=== PATIENT | female | born 1995 | race Caucasian/White ===

== ENCOUNTER 2024-11-02 21:17 | Inpatient (IN) | payer MEDICAID, OTHER ==
[~2024-11-02] VITALS: Ht 154.9 cm; Wt 60.6 kg
--- NOTE | 2024-11-02 22:05 | ED.PDOC ---
History of Present Illness HPI Comments 29 year old female came to ER due to breast pain. Patient states she has been having left breast pain for the past 3 days. Few hours ago, noted rash appearing beside her left nipple. No fever noted. Patient had history of nipple piercing but she stopped doing it months ago Chief Complaint: Breast pain Time Seen by MD: 22:04 Reviewed Notes: Nurses Notes Allergies: Coded Allergies: NO KNOWN ALLERGIES (Unverified , 11/03/24) Information Source: Patient Mode of Arrival: Ambulatory Review of Systems REVIEW OF SYSTEMS: No fever, no chills, or fatigue HEENT: No sore throat, no earache, no congestion, no neck pain. Cardiac: No chest pain. No palpitations. (+) left breast pain Lungs: No shortness of breath, no cough. GI: No nausea, no vomiting, no diarrhea, no constipation, no abdominal pain : No dysuria, frequency, or urgency. No hematuria. Musculoskeletal: No joint pain , no joint swelling, no extremity edema. Skin: No rash, no itching. Neuro: No headache, no dizziness, no weakness Vital Signs Vital Signs Date Time Temp Pulse Resp B/P (MAP) Pulse Ox O2 Delivery O2 Flow Rate FiO2 11/03/24 02:00 98.0 73 17 114/71 (85) 97 98.0 11/03/24 02:00 Room Air* 0 21 Physical Exam General: Awake, alert and oriented. No acute distress. Skin: Skin in warm, dry and intact without rashes or lesions. HEENT: The head is normocephalic and atraumatic. Conjunctivae are clear without exudates or hemorrhage. Sclera is non-icteric. Neck: Normal range of motion. No JVD. Cardiac: Regular rate Respiratory: No signs of respiratory distress. No Stridor. Chest: Extractor Filler present-left breast is swollen, tender, mildly erythematous, warm. No draining lesion. Extremities: Upper and lower extremities are atraumatic in appearance without tenderness or deformity. Neurological: The patient is awake, alert and oriented to person, place, and time with normal speech. Speech is clear. There is no facial asymmetry. Psychiatric: Appropriate mood and affect. Good judgement and insight. No visual or auditory hallucinations. No suicidal or homicidal ideation. 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 Was a procedure done?: No Differential Dx Considerations may include: Cellulitis, abscess, mastitis X-Ray, Labs, Meds, VS Vital Signs Date Time Temp Pulse Resp B/P (MAP) Pulse Ox O2 Delivery O2 Flow Rate FiO2 11/03/24 02:00 98.0 73 17 114/71 (85) 97 98.0 11/03/24 02:00 73 14 96 Room Air* 0 21 11/03/24 01:02 98.0 89 17 118/76 (90) 95 98.0 11/02/24 21:38 99.6 99 18 151/94 (113) 95 Lab Test 11/02/24 22:03 11/02/24 22:02 Range/Units Sodium Level 137 136-145 mmol/L Potassium Level 3.9 3.5-5.1 mmol/L Chloride Level 104 98-107 mmol/L Carbon Dioxide Level 26 20-31 mmol/L Anion Gap 7 5-15 Blood Urea Nitrogen 9 9-23 mg/dL Creatinine 0.78 0.550-1.02 mg/dL Glomerular Filtration Rate Calc 105 >90 mL/min BUN/Creatinine Ratio 11.5 10.0-20.0 Serum Glucose 99 74-106 mg/dL Calcium Level 10.1 8.7-10.4 mg/dL Total Bilirubin 0.4 0.2-1.0 mg/dL Aspartate Amino Transferase (AST) 17 13-40 U/L Alanine Aminotransferase (ALT) < 9 7-40 U/L Alkaline Phosphatase 92 46-116 U/L Total Protein 8.1 5.7-8.2 g/dL Albumin 5.1 H 3.2-4.8 g/dL White Blood Count 20.4 H 4.4-10.8 10^3/uL Red Blood Count 4.44 4.0-5.20 10^6/uL Hemoglobin 13.7 12.2-16.2 g/dL Hematocrit 40.5 36.0-46.0 % Mean Corpuscular Volume 91.4 80.0-100.0 fL Mean Corpuscular Hemoglobin 30.8 28.0-32.0 pg Mean Corpuscular Hemoglobin Concent 33.7 32.0-36.0 g/dL Red Cell Distribution Width 12.6 11.8-14.3 % Platelet Count 298 140-450 10^3/uL Mean Platelet Volume 8.5 6.9-10.8 fL Neutrophils (%) (Auto) 76.6 37.0-80.0 % Lymphocytes (%) (Auto) 16.2 10.0-50.0 % Monocytes (%) (Auto) 6.3 0.0-12.0 % Eosinophils (%) (Auto) 0.4 0.0-7.0 % Basophils (%) (Auto) 0.5 0.0-2.0 % Neutrophils # (Auto) 15.7 H 1.6-8.6 10 ^3/uL Lymphocytes # (Auto) 3.3 0.4-5.4 10 ^3/uL Monocytes # (Auto) 1.3 0-1.3 10 ^3/uL Eosinophils # (Auto) 0.1 0-0.8 10 ^3/uL Basophils # (Auto) 0.1 0-0.2 10 ^3/uL Nucleated Red Blood Cells 0.0 % Current Medications Medications (Trade) Dose Ordered Sig/Uma Route Start Time Stop Time Status Last Admin Ketorolac Tromethamine (Toradol Injection) 30 mg ONCE ONCE IM 11/02/24 22:00 11/02/24 22:01 DC 11/03/24 00:08 Tramadol HCl (Ultram) 50 mg ONCE ONCE PO 11/02/24 22:00 11/02/24 22:01 DC 11/03/24 00:08 Cefazolin Sodium/ Dextrose 50 ml @ 50 mls/hr ONCE ONCE IV 11/03/24 01:00 11/03/24 01:59 DC 11/03/24 03:10 Sodium Chloride 1,000 ml @ 60 mls/hr [id number] IV 11/03/24 02:15 11/03/24 03:21 Ondansetron HCl (Zofran) 4 mg Q4HP PRN IV 11/03/24 02:15 11/03/24 04:21 US OF THE RIGHT BREAST INDICATION: Swelling, pain , tenderness TECHNIQUE: All 4 quadrants, subareolar region and axillary region of the LEFT breast were evaluated with ultrasound FINDINGS: 2 cm abscess measured adjacent to the nipple. Enlarged lymph nodes are seen measuring up to 1 cm. IMPRESSION: 2 cm abscess measured adjacent to the nipple. Enlarged lymph nodes are seen measuring up to 1 cm. Time of 1ST Reevaluation: 22:01 Reevaluation 1ST: Unchanged Patient Education/Counseling: Diagnosis, Treatment Family Education/Counseling: No Family Present Departure 1 Departure Time of Disposition: 01:22 Impression: Primary Impression: Left breast abscess Disposition: ADMITTED INPATIENT Condition: Stable Comments Benign year old female with 2 cm left breast abscess. Admit for surgical consult. Antibiotics initiated in the emergency department. --- Critical Care Note Critical Care Time?: No Stability Stability form required: No Heart Score Heart Score: Heart Score Response (Comments) Value History N/A 0 EKG N/A 0 Age N/A 0 Risk Factors N/A 0 Troponin N/A 0 Total 0 I personally scribed for ANDREA STEPHEN MD ([email or web address]) on 11/02/24 at 22:05. Electronically submitted by Tono Boucher ([email or web address]). I personally scribed for ANDREA STEPHEN MD ([email or web address]) on 11/03/24 at 00:48. Electronically submitted by Tono Boucher ([email or web address]). ANDREA STEPHEN MD Nov 02, 2024 22:05
[2024-11-02 22:16] LABS: Basophils # (auto) 0.1 10 ^3/uL (0-0.2); Basophils % (auto) 0.5 % (0.0-2.0); Eosinophils # (auto) 0.1 10 ^3/uL (0-0.8); Eosinophils % (auto) 0.4 % (0.0-7.0); Hematocrit 40.5 % (36.0-46.0); Hemoglobin 13.7 g/dL (12.2-16.2); Lymphocytes # (auto) 3.3 10 ^3/uL (0.4-5.4); Lymphocytes % (auto) 16.2 % (10.0-50.0); Mean Corpuscular Hemoglobin 30.8 pg (28.0-32.0); Mean Corpuscular Hgb Conc. 33.7 g/dL (32.0-36.0); Mean Corpuscular Volume 91.4 fL (80.0-100.0); Monocytes # (auto) 1.3 10 ^3/uL (0-1.3); Monocytes % (auto) 6.3 % (0.0-12.0); Neutrophils # (auto) 15.7 10 ^3/uL (1.6-8.6); Neutrophils % (auto) 76.6 % (37.0-80.0); Platelet Count (auto) 298 10^3/uL (140-450); Red Blood Cells 4.44 10^6/uL (4.0-5.20); Red Cell Distribution Width 12.6 % (11.8-14.3); White Blood Cell 20.4 10^3/uL (4.4-10.8)
[2024-11-02 22:43] LABS: Alkaline Phosphatase 92 U/L (46-116); Anion Gap 7 (5-15); Aspartate Aminotransferase 17 U/L (13-40); BUN/Creatinine Ratio 11.5 (10.0-20.0); Blood Urea Nitrogen 9 mg/dL (9-23); Calcium 10.1 mg/dL (8.7-10.4); Carbon Dioxide 26 mmol/L (20-31); Chloride 104 mmol/L (98-107); Glucose 99 mg/dL (74-106); Potassium 3.9 mmol/L (3.5-5.1); Sodium 137 mmol/L (136-145); Total Protein 8.1 g/dL (5.7-8.2)
[2024-11-02 22:44] LABS: Alanine Aminotransferase < 9 U/L (7-40); Albumin 5.1 g/dL (3.2-4.8); Bilirubin, Total 0.4 mg/dL (0.2-1.0)
[2024-11-03] VITALS (7 sets, daily range): BP systolic 102–126; BP diastolic 65–76; PULSE 66–90; RESP 14–20; TEMP 97.5–98.2; O2SAT 96–100
[2024-11-03] MEDS: traMADol HCL 50 MG TAB PO ONE (00:08)
[2024-11-03] MEDS: KETOROLAC TROMETH 30 MG/ML 1ML VIAL IM ONE (00:08)
--- NOTE | 2024-11-03 00:16 | DVH ---
US OF THE RIGHT BREAST INDICATION: Swelling, pain , tenderness TECHNIQUE: All 4 quadrants, subareolar region and axillary region of the LEFT breast were evaluated with ultrasound FINDINGS: 2 cm abscess measured adjacent to the nipple. Enlarged lymph nodes are seen measuring up to 1 cm. IMPRESSION: 2 cm abscess measured adjacent to the nipple. Enlarged lymph nodes are seen measuring up to 1 cm.
[2024-11-03] MEDS ORDERED: traMADol HCL 50 MG TAB PO PRN (02:15)
[2024-11-03] MEDS ORDERED: DOCUSATE SOD 100 MG CAP PO PRN (02:15)
[2024-11-03] MEDS ORDERED: ACETAMINOPHEN 325 MG TAB PO PRN (02:15)
--- NOTE | 2024-11-03 02:24 | DVHHP2 ---
History of Present Illness Reason for Visit: Left breast abscess History of Present Illness Patient is a 29-year-old female who denies past medical history presented to [facility] ED with complaint of left breast pain. Patient reports she has been having left breast pain for the past 3 days, started with rash appearing beside her left nipples, swelling, redness, getting worse today that prompted this visit. Patient was seen and evaluated in the ED, laboratory data shows WBC 20.4, platelets 298, sodium 137, potassium 3.9, BUN nine, creatinine 0.78, GFR 105, glucose 99, albumin 5.1. Left breast ultrasound revealing 2 cm abscess measures adjacent to the nipples, enlarged lymph node seen measuring up to 1 cm. Patient was started on IV antibiotic regimen Zosyn, please see medication orders section in the computer. On my assessment, patient denied chest pain, no headache, no dizziness, no shortness of breaths, no nausea, no vomiting, no fever, no chills. Patient was admitted for further evaluation and medical management. Past Medical History Denies past medical history Past Surgical History Denies all surgeries Family History Reviewed, noncontributory to the management of this case. Past Social History The patient lives at home, denies smoking, alcohol or illicit drugs abuse. Review of Systems Constitutional: Yes: Other (Left breast pain); No: Fever, Chills, Sweats, Weakness, Malaise Eyes: No: Pain, Vision change, Conjunctivae inflammation, Eyelid inflammation, Other, Redness ENT: No: Ear pain, Ear discharge, Nose pain, Nose discharge, Nose congestion, Mouth pain, Mouth swelling, Throat pain, Throat swelling, Other Respiratory: No: Cough, Dry, Shortness of breath, SOB with excertion, Wheezing, Hemoptysis, Pleuritic Pain, Sputum, Wheezing, Other Cardiovascular: No: Chest Pain, Palpitations, Orthopnea, Paroxysmal Noc. Dyspnea, Edema, Lt Headedness, Other Gastrointestinal: No: Nausea, Vomiting, Abdominal Pain, Diarrhea, Constipation, Melena, Hematochezia, Other Genitourinary: No Dysuria, No Frequency, No Incontinence, No Hematuria, No Retention, No Other Musculoskeletal: No: other, neck pain, shoulder pain, arm pain, back pain, hand pain, leg pain, foot pain Skin: Other (Left breast redness); No: Rash, Lesions, Jaundice, Bruising Neurological: No: Weakness, Numbness, Incoordination, Change in speech, Confusion, Seizures, Other Allergies: Coded Allergies: NO KNOWN ALLERGIES (Unverified , 11/03/24) Exam Vital Signs Vital Signs Date Time Temp Pulse Resp B/P (MAP) Pulse Ox O2 Delivery O2 Flow Rate FiO2 11/03/24 01:02 98.0 89 17 118/76 (90) 95 98.0 General Appearance: Alert, Oriented X3, Cooperative, No acute distress HEENT: Atraumatic, PERRLA, EOMI, Mucous membr. moist/pink Respiratory: Clear to auscultation, Normal air movement Cardiovascular: Regular rate, Normal S1, Normal S2, No murmurs Abdominal: Normal bowel sounds, Soft, No tenderness, No hepatospenomegaly, No masses Extremities: No clubbing, No cyanosis, No edema, Normal pulses, No tenderness/swelling Skin: No rashes, No breakdown, No significant lesion Neuro: Normal gait, Normal speech, Strength at 5/5 X4 ext, Normal tone, Sensati on intact, Cranial nerves 3-12 NL, Reflexes 2+ Psych/Mental Status: Mental status NL, Mood NL Labs/Xrays Labs Test 11/02/24 22:03 11/02/24 22:02 Range/Units Sodium Level 137 136-145 mmol/L Potassium Level 3.9 3.5-5.1 mmol/L Chloride Level 104 98-107 mmol/L Carbon Dioxide Level 26 20-31 mmol/L Anion Gap 7 5-15 Blood Urea Nitrogen 9 9-23 mg/dL Creatinine 0.78 0.550-1.02 mg/dL Glomerular Filtration Rate Calc 105 >90 mL/min BUN/Creatinine Ratio 11.5 10.0-20.0 Serum Glucose 99 74-106 mg/dL Calcium Level 10.1 8.7-10.4 mg/dL Total Bilirubin 0.4 0.2-1.0 mg/dL Aspartate Amino Transferase (AST) 17 13-40 U/L Alanine Aminotransferase (ALT) < 9 7-40 U/L Alkaline Phosphatase 92 46-116 U/L Total Protein 8.1 5.7-8.2 g/dL Albumin 5.1 H 3.2-4.8 g/dL White Blood Count 20.4 H 4.4-10.8 10^3/uL Red Blood Count 4.44 4.0-5.20 10^6/uL Hemoglobin 13.7 12.2-16.2 g/dL Hematocrit 40.5 36.0-46.0 % Mean Corpuscular Volume 91.4 80.0-100.0 fL Mean Corpuscular Hemoglobin 30.8 28.0-32.0 pg Mean Corpuscular Hemoglobin Concent 33.7 32.0-36.0 g/dL Red Cell Distribution Width 12.6 11.8-14.3 % Platelet Count 298 140-450 10^3/uL Mean Platelet Volume 8.5 6.9-10.8 fL Neutrophils (%) (Auto) 76.6 37.0-80.0 % Lymphocytes (%) (Auto) 16.2 10.0-50.0 % Monocytes (%) (Auto) 6.3 0.0-12.0 % Eosinophils (%) (Auto) 0.4 0.0-7.0 % Basophils (%) (Auto) 0.5 0.0-2.0 % Neutrophils # (Auto) 15.7 H 1.6-8.6 10 ^3/uL Lymphocytes # (Auto) 3.3 0.4-5.4 10 ^3/uL Monocytes # (Auto) 1.3 0-1.3 10 ^3/uL Eosinophils # (Auto) 0.1 0-0.8 10 ^3/uL Basophils # (Auto) 0.1 0-0.2 10 ^3/uL Nucleated Red Blood Cells 0.0 % PATIENT: ALEX CARMONA ACCT: [id number] UNIT: [id number] : 1995 LOC: ER ROOM / BED: / AGE / SEX: 29 / F ADM STATUS: REG ER SERVICE ORDERING PHYSICIAN: ANRDEA STEPHEN MD PROCEDURE(s): LBRST - L BREAST ULTRASOUND REASON: Swelling, pain , tenderness ORDER NUMBER(s): [id number], ACCESSION NUMBER(s): [id number] US OF THE RIGHT BREAST INDICATION: Swelling, pain, tenderness TECHNIQUE: All 4 quadrants, subareolar region and axillary region of the LEFT breast were evaluated with ultrasound FINDINGS: 2 cm abscess measured adjacent to the nipple. Enlarged lymph nodes are seen measuring up to 1 cm. IMPRESSION: 2 cm abscess measured adjacent to the nipple. Enlarged lymph nodes are seen measuring up to 1 cm. Assessment/Plan Assessment/Plan Left breast abscess Left breast pain Leukocytosis, unspecified Plan 1. Admit to med surge unit 2. Breathing treatment 3. Pain control management 4. IV antibiotic management 5. Management of fluids and electrolytes 6. Consultation for surgery/hospitalist 7. Diagnostic test left breast ultrasound 8. DVT prophylaxis on SCDs 9. Repeat labs CBC, CMP in a.m. 10. Continue with current medical management 11. Treatment plan discussed with patient and RN. Patient verbalized understanding. Plan discussed with: Patient, Other (RN) My Orders Orders - WILLIS ADEN DNP Procedure Category Date Status Time Complete Blood Count LAB 11/03/24 Verified 04:00 Comprehensive LAB 11/03/24 Verified Metabolic Panel 04:00 Zosyn Extended PHA 11/03/24 Verified Infusion 06:00 Tramadol Hcl (Ultram) PHA 11/03/24 Verified 02:15 Allergies [id number] 11/03/24 Verified 02:07 Code Status CODE 11/03/24 Verified 02:07 0.9% Ns 1000 Ml PHA 11/03/24 Verified 02:15 Problem List: (1) Left breast abscess (2) Breast pain, left (3) Leukocytosis, unspecified Date of Service: Nov 03, 2024 Billing Provider: WILLIS ADEN DNP Common Visit Codes: [id number] INP/OBS CARE (HIGH) WILLIS ADEN DNP Nov 03, 2024 02:24
[2024-11-03] MEDS ORDERED: NITROGLYCERIN 0.4 MG SL TAB SL PRN (02:30)
[2024-11-03] MEDS ORDERED: MORPHINE SULFATE INJ 2 MG/ml SYRG IV PRN (02:30)
[2024-11-03] MEDS: ceFAZolin 2 GM/D5W50ml 50 ML IV ONE (03:10)
[2024-11-03] MEDS: SODIUM CHLORIDE 0.9% 1,000 ML IV SCH (03:21)
[2024-11-03] MEDS: ONDANSETRON HCL 4 MG/2 ML VIAL IV PRN (04:21)
[2024-11-03 05:01] LABS: Basophils # (auto) 0.1 10 ^3/uL (0-0.2); Basophils % (auto) 0.4 % (0.0-2.0); Eosinophils # (auto) 0.1 10 ^3/uL (0-0.8); Eosinophils % (auto) 0.4 % (0.0-7.0); Hematocrit 36.7 % (36.0-46.0); Hemoglobin 12.6 g/dL (12.2-16.2); Lymphocytes # (auto) 3.4 10 ^3/uL (0.4-5.4); Lymphocytes % (auto) 19.7 % (10.0-50.0); Mean Corpuscular Hemoglobin 31.2 pg (28.0-32.0); Mean Corpuscular Hgb Conc. 34.2 g/dL (32.0-36.0); Mean Corpuscular Volume 91.3 fL (80.0-100.0); Monocytes # (auto) 1.3 10 ^3/uL (0-1.3); Monocytes % (auto) 7.3 % (0.0-12.0); Neutrophils # (auto) 12.5 10 ^3/uL (1.6-8.6); Neutrophils % (auto) 72.2 % (37.0-80.0); Platelet Count (auto) 271 10^3/uL (140-450); Red Blood Cells 4.02 10^6/uL (4.0-5.20); Red Cell Distribution Width 12.8 % (11.8-14.3); White Blood Cell 17.3 10^3/uL (4.4-10.8)
[2024-11-03] MEDS: PIPERACILLIN-TAZOB 3.375GM 100 ML IV SCH (05:18)
[2024-11-03 05:19] LABS: Alanine Aminotransferase 11 U/L (7-40); Albumin 4.7 g/dL (3.2-4.8); Alkaline Phosphatase 78 U/L (46-116); Anion Gap 6 (5-15); Aspartate Aminotransferase 18 U/L (13-40); BUN/Creatinine Ratio 10.8 (10.0-20.0); Bilirubin, Total 0.4 mg/dL (0.2-1.0); Calcium 9.6 mg/dL (8.7-10.4); Carbon Dioxide 26 mmol/L (20-31); Chloride 106 mmol/L (98-107); Glucose 97 mg/dL (74-106); Potassium 3.5 mmol/L (3.5-5.1); Sodium 138 mmol/L (136-145); Total Protein 7.5 g/dL (5.7-8.2)
[2024-11-03 05:20] LABS: Blood Urea Nitrogen 8 mg/dL (9-23)
[2024-11-03] MEDS ORDERED: ESCI10TA PO (05:30)
[2024-11-03] MEDS ORDERED: MELA3TAB27 PO (05:43)
[2024-11-03] MEDS ORDERED: MAGN400T40 PO (05:43)
[2024-11-03] MEDS: HYDROcodone-ACET 5/325MG TAB PO PRN (21:13)
[2024-11-04] VITALS (7 sets, daily range): BP systolic 101–127; BP diastolic 53–82; PULSE 53–142; RESP 15–20; TEMP 97.4–98.2; O2SAT 94–100
[2024-11-04 06:43] LABS: Basophils # (auto) 0 10 ^3/uL (0-0.2); Basophils % (auto) 0.4 % (0.0-2.0); Eosinophils # (auto) 0.1 10 ^3/uL (0-0.8); Eosinophils % (auto) 0.9 % (0.0-7.0); Hematocrit 36.3 % (36.0-46.0); Hemoglobin 12.4 g/dL (12.2-16.2); Lymphocytes # (auto) 2.4 10 ^3/uL (0.4-5.4); Lymphocytes % (auto) 23.1 % (10.0-50.0); Mean Corpuscular Hemoglobin 31.3 pg (28.0-32.0); Mean Corpuscular Hgb Conc. 34.2 g/dL (32.0-36.0); Mean Corpuscular Volume 91.4 fL (80.0-100.0); Monocytes # (auto) 0.7 10 ^3/uL (0-1.3); Monocytes % (auto) 6.9 % (0.0-12.0); Neutrophils % (auto) 68.7 % (37.0-80.0); Nucleated Red Blood Cells % 0.1 %; Platelet Count (auto) 264 10^3/uL (140-450); Red Blood Cells 3.98 10^6/uL (4.0-5.20); Red Cell Distribution Width 12.6 % (11.8-14.3); White Blood Cell 10.2 10^3/uL (4.4-10.8)
[2024-11-04 07:08] LABS: Alanine Aminotransferase 14 U/L (7-40); Alkaline Phosphatase 77 U/L (46-116); Anion Gap 10 (5-15); Calcium 9.4 mg/dL (8.7-10.4); Carbon Dioxide 24 mmol/L (20-31); Chloride 103 mmol/L (98-107); Potassium 3.5 mmol/L (3.5-5.1); Sodium 137 mmol/L (136-145)
[2024-11-04 07:10] LABS: BUN/Creatinine Ratio 8.7 (10.0-20.0); Total Protein 6.8 g/dL (5.7-8.2)
[2024-11-04 07:11] LABS: Albumin 4.2 g/dL (3.2-4.8); Aspartate Aminotransferase 36 U/L (13-40)
[2024-11-04 07:12] LABS: Bilirubin, Total 0.7 mg/dL (0.2-1.0)
[2024-11-04 07:18] LABS: Glucose 106 mg/dL (74-106)
[2024-11-04 07:19] LABS: Blood Urea Nitrogen 6 mg/dL (9-23)
--- NOTE | 2024-11-04 11:51 | DVHINCON2 ---
Date of service: Nov 04, 2024 Family History: Alzheimer's disease FH: breast cancer Grandmother FH: dementia Grandmother FH: lupus G8 MOTHER Allergies: Coded Allergies: NO KNOWN ALLERGIES (Unverified , 11/03/24) Home Meds Reported Medications Magnesium Oxide (MAGNESIUM OXIDE) 400 Mg Tab, 1 TAB PO, #30 TAB 5 Refills 11/03/24 Melatonin (KP MELATONIN) 3 Mg Tab, 5 MG PO, TAB 11/03/24 Escitalopram Oxalate (Lexapro) 10 Mg Tab, 1 TAB PO DAILY, #90 TAB 3 Refills 11/03/24 Vital Signs Vital Signs Date Time Temp Pulse Resp B/P (MAP) Pulse Ox O2 Delivery O2 Flow Rate FiO2 11/04/24 08:54 98.1 56 15 101/53 (69) 98 98.1 11/04/24 08:00 Room Air* 0 21 Labs/Diagnostic Data Labs Test 11/04/24 06:05 11/03/24 15:51 Range/Units White Blood Count 10.2 # 4.4-10.8 10^3/uL Red Blood Count 3.98 L 4.0-5.20 10^6/uL Hemoglobin 12.4 12.2-16.2 g/dL Hematocrit 36.3 36.0-46.0 % Mean Corpuscular Volume 91.4 80.0-100.0 fL Mean Corpuscular Hemoglobin 31.3 28.0-32.0 pg Mean Corpuscular Hemoglobin Concent 34.2 32.0-36.0 g/dL Red Cell Distribution Width 12.6 11.8-14.3 % Platelet Count 264 140-450 10^3/uL Mean Platelet Volume 8.4 6.9-10.8 fL Neutrophils (%) (Auto) 68.7 37.0-80.0 % Lymphocytes (%) (Auto) 23.1 10.0-50.0 % Monocytes (%) (Auto) 6.9 0.0-12.0 % Eosinophils (%) (Auto) 0.9 0.0-7.0 % Basophils (%) (Auto) 0.4 0.0-2.0 % Neutrophils # (Auto) 7.0 1.6-8.6 10 ^3/uL Lymphocytes # (Auto) 2.4 0.4-5.4 10 ^3/uL Monocytes # (Auto) 0.7 0-1.3 10 ^3/uL Eosinophils # (Auto) 0.1 0-0.8 10 ^3/uL Basophils # (Auto) 0 0-0.2 10 ^3/uL Nucleated Red Blood Cells 0.1 % Sodium Level 137 136-145 mmol/L Potassium Level 3.5 3.5-5.1 mmol/L Chloride Level 103 98-107 mmol/L Carbon Dioxide Level 24 20-31 mmol/L Anion Gap 10 5-15 Blood Urea Nitrogen 6 L 9-23 mg/dL Creatinine 0.69 0.550-1.02 mg/dL Glomerular Filtration Rate Calc 120 >90 mL/min BUN/Creatinine Ratio 8.7 L 10.0-20.0 Serum Glucose 106 74-106 mg/dL Calcium Level 9.4 8.7-10.4 mg/dL Total Bilirubin 0.7 0.2-1.0 mg/dL Aspartate Amino Transferase (AST) 36 13-40 U/L Alanine Aminotransferase (ALT) 14 7-40 U/L Alkaline Phosphatase 77 46-116 U/L Total Protein 6.8 5.7-8.2 g/dL Albumin 4.2 3.2-4.8 g/dL Urine Test Negative Negative Assessment [id number] R/O LEFT RETROAREOLAR MASTITIS/ABSCESS US 2 CM ABSCESS CONTINUE IV ABX CLOSE OBSERVATION CONSIDER EMERGENT SURGERY BASED ON ONGOING EVAL Plan discussed with: Patient EMA LEWIS MD Nov 04, 2024 11:51
--- NOTE | 2024-11-04 12:31 | DVHINCON2 ---
DATE OF CONSULTATION: 11/04/2024 HISTORY OF PRESENT ILLNESS: A 29 years old, coming in with left leg swelling, redness, feeling better. No fever or chills. No nausea, vomiting. No constipation, diarrhea. No hematemesis, melena. No bleeding per rectum. PAST MEDICAL HISTORY: No diabetes, hypertension. PAST SURGICAL HISTORY: No significant surgical history. PHYSICAL EXAMINATION: VITAL SIGNS: Afebrile, stable signs. HEENT: No evidence of pallor, cyanosis or jaundice. NECK: Supple, nontender with no thyromegaly, lymphadenopathy. CHEST AND LUNGS: Clear. HEART: Within normal limits. ABDOMEN: Soft. NEUROLOGIC: Not assessed. CLINICAL IMPRESSION: Left breast examination reveals mild erythema on the circumareolar margin and there is some induration, retroareolar location and the ultrasound is indicating a small collection/abscess. PLAN: Will be to continue close observation, give her intravenous antibiotics and evaluate for possible surgery. MD REANNA Carson/FELIPE TID: [id number] RECEIPT: [id number] cc: Aspen Aquino
--- NOTE | 2024-11-04 20:33 | DVHPN2 ---
Subjective in bed resting Changes from previous H/P or p: No Changes Eyes: No Pain, No Vision change, No Conjunctivae inflammation, No Eyelid inflammation, No Other, No Redness ENT: No Ear pain, No Ear discharge, No Nose pain, No Nose discharge, No Nose congestion, No Mouth pain, No Mouth swelling, No Throat pain, No Throat swelling, No Other Cardiovascular: No Chest Pain, No Palpitations, No Orthopnea, No Paroxysmal Noc. Dyspnea, No Edema, No Lt Headedness, No Other Respiratory: No Cough, No Dry, No Shortness of breath, No SOB with excertion, No Wheezing, No Hemoptysis, No Pleuritic Pain, No Sputum, No Other Gastrointestinal: No Nausea, No Vomiting, No Abdominal Pain, No Diarrhea, No Constipation, No Melena, No Hematochezia, No Other Genitourinary: No Dysuria, No Frequency, No Incontinence, No Hematuria, No Retention, No Other Musculoskeletal: No other, No neck pain, No shoulder pain, No arm pain, No back pain, No hand pain, No leg pain, No foot pain Skin: No Rash, No Lesions, No Jaundice, No Bruising; Other (Left breast redness) Objective Vitals Vital Signs Date Time Temp Pulse Resp B/P (MAP) Pulse Ox O2 Delivery O2 Flow Rate FiO2 11/04/24 17:00 98.1 91 15 118/79 (92) 98 98.1 11/04/24 08:00 Room Air* 0 21 Intake/Output Intake and Output 11/04/24 07:00 Intake Total 2207.78 ml Balance 2207.78 ml Intake Oral 1625 ml IV Total 582.78 ml # Voids 4 General Appearance: Alert, Oriented X3 Lungs: Clear to auscultation Cardiovascular: Regular rate, Normal S1, Normal S2 Medications Current Medications Medications Dose Ordered Sig/Uma Route Start Time Stop Time Status Last Admin Dose Admin Piperacillin Sod/ Tazobactam Sod 100 ml @ 25 mls/hr Q8HR IV 11/03/24 06:00 11/04/24 12:27 25 MLS/HR Sodium Chloride 1,000 ml @ 60 mls/hr [id number] IV 11/03/24 02:15 11/04/24 11:35 60 MLS/HR Acetaminophen/ Hydrocodone Bitart 1 tab Q4HP PRN PO 11/03/24 02:15 3/9/25 17:47 1 TAB Ondansetron HCl 4 mg Q4HP PRN IV 11/03/24 02:15 11/03/24 04:21 4 MG Docusate Sodium 100 mg BIDPRN PRN PO 11/03/24 02:15 Acetaminophen 650 mg Q6HP PRN PO 11/03/24 02:15 Morphine Sulfate 2 mg Q4HPRN PRN IV 11/03/24 02:15 Nitroglycerin 0.4 mg Q5MINP PRN SL 11/03/24 02:30 Morphine Sulfate 2 mg Q30M PRN IV 11/03/24 02:30 Laboratory Results Laboratory Tests 11/04/24 06:05 Chemistry Test 11/04/24 06:05 Albumin 4.2 g/dL (3.2-4.8) Calcium Level 9.4 mg/dL (8.7-10.4) Total Protein 6.8 g/dL (5.7-8.2) LFT Test 11/04/24 06:05 Alanine Aminotransferase (ALT) 14 U/L (7-40) Alkaline Phosphatase 77 U/L (46-116) Aspartate Amino Transferase (AST) 36 U/L (13-40) Total Bilirubin 0.7 mg/dL (0.2-1.0) Urinalysis Test 11/03/24 15:51 Urine Test Negative (Negative) Assessment/Plan Assessment/Plan Left breast abscess Left breast pain sepsis due to left breast abscess WBC downtrending to normal Surgery eval and planning on I an D Continue IV abx Plan discussed with: Patient My Orders Orders - KATIE RIVAS MD Procedure Category Date Status Time * Surgical Consult CONS 11/04/24 Transmitted Date of Service: Nov 04, 2024 Billing Provider: KATIE RIVAS MD Common Visit Codes: [id number] INP/OBS CARE(HIGH) KATIE RIVAS MD Nov 04, 2024 20:33
[2024-11-04] MEDS: MORPHINE SULFATE INJ 2 MG/ml SYRG IV PRN (22:18)
[2024-11-05] VITALS (7 sets, daily range): BP systolic 97–144; BP diastolic 36–82; PULSE 58–87; RESP 16–20; TEMP 97.1–98.2; O2SAT 97–100
--- NOTE | 2024-11-05 14:33 | DVHPN2 ---
Subjective improving Changes from previous H/P or p: No Changes Eyes: No Pain, No Vision change, No Conjunctivae inflammation, No Eyelid inflammation, No Other, No Redness ENT: No Ear pain, No Ear discharge, No Nose pain, No Nose discharge, No Nose congestion, No Mouth pain, No Mouth swelling, No Throat pain, No Throat swelling, No Other Cardiovascular: No Chest Pain, No Palpitations, No Orthopnea, No Paroxysmal Noc. Dyspnea, No Edema, No Lt Headedness, No Other Respiratory: No Cough, No Dry, No Shortness of breath, No SOB with excertion, No Wheezing, No Hemoptysis, No Pleuritic Pain, No Sputum, No Other Gastrointestinal: No Nausea, No Vomiting, No Abdominal Pain, No Diarrhea, No Constipation, No Melena, No Hematochezia, No Other Genitourinary: No Dysuria, No Frequency, No Incontinence, No Hematuria, No Retention, No Other Musculoskeletal: No other, No neck pain, No shoulder pain, No arm pain, No back pain, No hand pain, No leg pain, No foot pain Skin: No Rash, No Lesions, No Jaundice, No Bruising; Other (Left breast redness) Objective Vitals Vital Signs Date Time Temp Pulse Resp B/P (MAP) Pulse Ox O2 Delivery O2 Flow Rate FiO2 11/05/24 13:28 97.9 63 16 97/36 (56) 98 97.9 11/05/24 08:00 Room Air* 0 21 Intake/Output Intake and Output 11/05/24 07:00 Intake Total 2940 ml Balance 2940 ml Intake Oral 1600 ml IV Total 1340 ml # Voids 7 # Bowel Movements 1 General Appearance: Alert, Oriented X3 Lungs: Clear to auscultation Cardiovascular: Regular rate, Normal S1, Normal S2 Medications Current Medications Medications Dose Ordered Sig/Uma Route Start Time Stop Time Status Last Admin Dose Admin Piperacillin Sod/ Tazobactam Sod 100 ml @ 25 mls/hr Q8HR IV 11/03/24 06:00 11/05/24 05:03 25 MLS/HR Sodium Chloride 1,000 ml @ 60 mls/hr [id number] IV 11/03/24 02:15 11/05/24 04:20 60 MLS/HR Acetaminophen/ Hydrocodone Bitart 1 tab Q4HP PRN PO 11/03/24 02:15 11/04/24 17:47 1 TAB Ondansetron HCl 4 mg Q4HP PRN IV 11/03/24 02:15 11/03/24 04:21 4 MG Docusate Sodium 100 mg BIDPRN PRN PO 11/03/24 02:15 Acetaminophen 650 mg Q6HP PRN PO 11/03/24 02:15 Morphine Sulfate 2 mg Q4HPRN PRN IV 11/03/24 02:15 11/04/24 22:18 2 MG Nitroglycerin 0.4 mg Q5MINP PRN SL 11/03/24 02:30 Morphine Sulfate 2 mg Q30M PRN IV 11/03/24 02:30 Laboratory Results Laboratory Tests 11/04/24 06:05 Urinalysis Test 11/03/24 15:51 Urine Test Negative (Negative) Assessment/Plan Assessment/Plan Left breast abscess Left breast pain sepsis due to left breast abscess WBC downtrending to normal Surgery eval and planning on I an D Continue IV abx improving Plan discussed with: Patient Date of Service: Nov 05, 2024 Billing Provider: ARSH ALMAZAN MD Common Visit Codes: [id number] INP/OBS CARE(MOD) ARSH ALMAZAN MD Nov 05, 2024 14:33
--- NOTE | 2024-11-05 17:55 | DVHPN2 ---
Progress Note Date Seen: Nov 05, 2024 Medical Necessity Reason Pt with a Central, PICC or Fol: No Objective vital signs Vital Sign Date Time Temp Pulse Resp B/P (MAP) Pulse Ox O2 Delivery O2 Flow Rate FiO2 11/05/24 13:28 97.9 63 16 97/36 (56) 98 97.9 11/05/24 08:00 Room Air* 0 21 Total Intake and Output 11/04/24 11/04/24 11/05/24 15:00 23:00 07:00 Intake Total 400 ml 2540 ml Balance 400 ml 2540 ml medications Current Medications Medications Dose Ordered Sig/Uma Route Start Time Stop Time Status Last Admin Dose Admin Piperacillin Sod/ Tazobactam Sod 100 ml @ 25 mls/hr Q8HR IV 11/03/24 06:00 11/05/24 16:05 25 MLS/HR Sodium Chloride 1,000 ml @ 60 mls/hr [id number] IV 11/03/24 02:15 11/05/24 04:20 60 MLS/HR Acetaminophen/ Hydrocodone Bitart 1 tab Q4HP PRN PO 11/03/24 02:15 11/05/24 16:06 1 TAB Ondansetron HCl 4 mg Q4HP PRN IV 11/03/24 02:15 11/03/24 04:21 4 MG Docusate Sodium 100 mg BIDPRN PRN PO 11/03/24 02:15 Acetaminophen 650 mg Q6HP PRN PO 11/03/24 02:15 Morphine Sulfate 2 mg Q4HPRN PRN IV 11/03/24 02:15 11/04/24 22:18 2 MG Nitroglycerin 0.4 mg Q5MINP PRN SL 11/03/24 02:30 Morphine Sulfate 2 mg Q30M PRN IV 11/03/24 02:30 laboratory and microbiology Laboratory Tests 11/04/24 06:05 Test 11/04/24 06:05 Range/Units Serum Glucose 106 74-106 mg/dL Problem List/Assessment/Plan Problem List/Assessment/Plan AFEBRILE VSS LEFT BREAST SWELLING LESS ERYTHEMA RESOLVED NO INDICATION FOR URGENT SURGERY CONTINUE IV ABX AND CLOSE OBSERVATION Plan discussed with: Patient EMA LEWIS MD Nov 05, 2024 17:55
[2024-11-06 01:32] VITALS: BP 127/68; PULSE 69; RESP 19; TEMP 98.1; O2SAT 99
[2024-11-06 05:00] VITALS: BP 95/65; PULSE 70; RESP 19; TEMP 98.1; O2SAT 96
[2024-11-06 07:41] LABS: Anion Gap 9 (5-15); Carbon Dioxide 24 mmol/L (20-31); Chloride 104 mmol/L (98-107); Potassium 3.7 mmol/L (3.5-5.1); Sodium 137 mmol/L (136-145)
[2024-11-06 07:43] LABS: Calcium 9.3 mg/dL (8.7-10.4)
[2024-11-06 07:45] LABS: Basophils # (auto) 0 10 ^3/uL (0-0.2); Basophils % (auto) 0.4 % (0.0-2.0); Eosinophils # (auto) 0.1 10 ^3/uL (0-0.8); Eosinophils % (auto) 1.4 % (0.0-7.0); Hematocrit 34.8 % (36.0-46.0); Hemoglobin 12.5 g/dL (12.2-16.2); Lymphocytes # (auto) 2.9 10 ^3/uL (0.4-5.4); Lymphocytes % (auto) 31.2 % (10.0-50.0); Mean Corpuscular Hemoglobin 33.2 pg (28.0-32.0); Mean Corpuscular Volume 92.2 fL (80.0-100.0); Monocytes # (auto) 0.7 10 ^3/uL (0-1.3); Monocytes % (auto) 7.9 % (0.0-12.0); Neutrophils # (auto) 5.6 10 ^3/uL (1.6-8.6); Neutrophils % (auto) 59.1 % (37.0-80.0); Nucleated Red Blood Cells % 0.1 %; Platelet Count (auto) 272 10^3/uL (140-450); Red Blood Cells 3.78 10^6/uL (4.0-5.20); Red Cell Distribution Width 12.5 % (11.8-14.3); White Blood Cell 9.4 10^3/uL (4.4-10.8)
[2024-11-06 07:47] LABS: Blood Urea Nitrogen 15 mg/dL (9-23); Glucose 83 mg/dL (74-106)
[2024-11-06 08:04] VITALS: PULSE 65
[2024-11-06 08:37] VITALS: BP 103/63; PULSE 60; RESP 15; TEMP 98.2; O2SAT 100
[2024-11-06] MEDS ORDERED: AUG875T PO (09:14)
[2024-11-06] MEDS ORDERED: IBU600T PO (09:14)
--- NOTE | 2024-11-06 09:15 | DVHDS2 ---
Discharge Summary Date of Admission Nov 03, 2024 at 02:24 Date of Discharge: Nov 06, 2024 Labs/Diagnostic Data: Laboratory Results Test 11/06/24 05:19 11/04/24 06:05 11/03/24 15:51 White Blood Count 9.4 10^3/uL (4.4-10.8) Red Blood Count 3.78 10^6/uL (4.0-5.20) Hemoglobin 12.5 g/dL (12.2-16.2) Hematocrit 34.8 % (36.0-46.0) Mean Corpuscular Volume 92.2 fL (80.0-100.0) Mean Corpuscular Hemoglobin 33.2 pg (28.0-32.0) Mean Corpuscular Hemoglobin Concent 36.0 g/dL (32.0-36.0) Red Cell Distribution Width 12.5 % (11.8-14.3) Platelet Count 272 10^3/uL (140-450) Mean Platelet Volume 8.6 fL (6.9-10.8) Neutrophils (%) (Auto) 59.1 % (37.0-80.0) Lymphocytes (%) (Auto) 31.2 % (10.0-50.0) Monocytes (%) (Auto) 7.9 % (0.0-12.0) Eosinophils (%) (Auto) 1.4 % (0.0-7.0) Basophils (%) (Auto) 0.4 % (0.0-2.0) Neutrophils # (Auto) 5.6 10 ^3/uL (1.6-8.6) Lymphocytes # (Auto) 2.9 10 ^3/uL (0.4-5.4) Monocytes # (Auto) 0.7 10 ^3/uL (0-1.3) Eosinophils # (Auto) 0.1 10 ^3/uL (0-0.8) Basophils # (Auto) 0 10 ^3/uL (0-0.2) Nucleated Red Blood Cells 0.1 % Sodium Level 137 mmol/L (136-145) Potassium Level 3.7 mmol/L (3.5-5.1) Chloride Level 104 mmol/L (98-107) Carbon Dioxide Level 24 mmol/L (20-31) Anion Gap 9 (5-15) Blood Urea Nitrogen 15 mg/dL (9-23) Creatinine 0.94 mg/dL (0.550-1.02) Glomerular Filtration Rate Calc 84 mL/min (>90) BUN/Creatinine Ratio 16.0 (10.0-20.0) Serum Glucose 83 mg/dL (74-106) Calcium Level 9.3 mg/dL (8.7-10.4) Total Bilirubin 0.7 mg/dL (0.2-1.0) Aspartate Amino Transferase (AST) 36 U/L (13-40) Alanine Aminotransferase (ALT) 14 U/L (7-40) Alkaline Phosphatase 77 U/L (46-116) Total Protein 6.8 g/dL (5.7-8.2) Albumin 4.2 g/dL (3.2-4.8) Urine Test Negative (Negative) Other Laboratory Tests 11/06/24 05:19 Brief Hx & Hospital Course: 29 yo f admitted with left breast abscess, patient was seen by surgery, started on zosyn, imaging labs reviewed. after 2 days significantly improved, can be switched to oral augmentin to take at home for 2 weeks, and follow up with dc clinic in 2 weeks. Condition at Discharge: Good Final Diagnosis/Problems List breast abscess Discharge Disposition: Home Discharge Instruct/Medications Diet: Regular Activity: No Restrictions, As Tolerated Follow Up/Referral: dc clinic 14 days Medications: augmentin motrin Discharge Statement: "Patient was advised to return to the ER or call 911 if any headaches, dizziness, shortness of breath, chest pain, abdominal pain, bleeding, fevers, or worsening of medical condition. Patient was counseled about treatment plan, medications, possible side effects, patientverbalized understanding. All questions were answered to the best of my ability. This discharge took greater then 30 minutes in planning, reviewing documentation, counseling the patient, and discussing with other team members." ASSESSMENT ASSESSMENT Assessment Left breast abscess Left breast pain sepsis due to left breast abscess Date of Service: Nov 06, 2024 Billing Provider: ARSH ALMAZAN MD Common Visit Codes: 88373-RMT/OBS DISCH DAY >30min ARSH ALMAZAN MD Nov 06, 2024 09:15
== END 2024-11-06 12:07 | disposition home or self-care (01) | DRG 720 ==
LOC: ER 21:17 → OVERFLOW 11-03 02:24 → WEST WING 11-03 02:48
PROVIDERS: ADMIT Student in an Organized Health Care Education/Training Program; ATTEND Student in an Organized Health Care Education/Training Program
DX: A41.9 Sepsis, unspecified organism (principal); N61.1 Abscess of the breast and nipple; Z82.0 Family history of epilepsy and other diseases of the nervous system; Z80.3 Family history of malignant neoplasm of breast; Z79.899 Other long term (current) drug therapy
CPT/HCPCS: 36415; 76642; 80048; 80053; 81025; 85025; 96365; 96372; 96375; G0378; J1885; J2405; J2543

== ENCOUNTER 2025-04-08 09:13 | Inpatient (IN) | payer MEDICAID ==
[~2025-04-08] VITALS: Ht 154.9 cm; Wt 61.3 kg
[~2025-04-08 09:13] MED LIST: AUG875T PO; ESCI10TA PO; IBU600T PO; MAGN400T40 PO; MELA3TAB27 PO
--- NOTE | 2025-04-08 09:43 | ED.PDOC ---
GI ASSESSMENT HPI Comments A 30-year-old female with no past medical history presents to the emergency department with a chief complaint of abdominal pain onset 2 days. Patient states she has been experiencing constant epigastric pain for the past 2 days, woke up this morning experiencing RUQ pain radiating to RT upper back, RUQ was warm to touch, tender to touch . Patient states pain was initially 10/10, is currently 8/10, has not taken any medication. She is also experiencing intermittent nausea Pain is aggravated after meals. Denies vomiting, hematemesis, diarrhea Denies fever, chills, sweats Denies dysuria, hematuria Denies headache, dizziness Denies chest pain, shortness of breath Chief Complaint: Abdominal Pain Time Seen by MD: 09:35 Reviewed Notes: Medications, Allergies Allergies: Coded Allergies: NO KNOWN ALLERGIES (Unverified , 11/03/24) Home Meds Active Scripts Hydrocodone-Acetaminophen (Hydrocodone Bitartrate/AC 5-325 mg) 1 Tab Tab, 1 TAB PO QID PRN, #30 TAB Prov:CHRIS INGRAM MD 04/13/25 Levofloxacin Hemihydrate (LEVAQUIN 500 MG) 500 Mg Tab, 1 TAB PO DAILY, #10 TAB Prov:CHRIS INGRAM MD 04/13/25 Metronidazole (Flagyl) 500 Mg Tab, 1 TAB PO TID, #30 TAB Prov:CHRIS INGRAM MD 04/13/25 Reported Medications Magnesium Oxide (MAGNESIUM OXIDE) 400 Mg Tab, 1 TAB PO, #30 TAB 5 Refills 11/03/24 Melatonin (KP MELATONIN) 3 Mg Tab, 5 MG PO, TAB 11/03/24 Escitalopram Oxalate (Lexapro) 10 Mg Tab, 1 TAB PO DAILY, #90 TAB 3 Refills 11/03/24 Information Source: Patient Mode of Arrival: Ambulatory Timing: Days Duration: Since onset Prehospital treatment: None Quality: Sharp Vomitus: None Severity: Moderate Recent: None Recent Hx of: None Pain Location: Epigastric, RUQ Modifying Factors: Nothing Associated sign and symptoms: Nausea, Abdominal Pain Past Medical History PAST MEDICAL HISTORY: Denies Surgical History: Denies all surgeries LODGE ATTENDANT History: Denies all LODGE ATTENDANT Hx Family History Family History: Reviewed,noncontributory to illness Social History Smoker: Other Alcohol: Occasionally Drugs: Denies Drug Use Lives In: Home All Other Systems: Reviewed and Negative (as per HPI) Physical Exam General Appearance: Normal HEENT: Normal ENT Inspection, Pharynx Normal, TMs Normal Neck: Full Range of Motion, Non-Tender, Normal, Normal Inspection Respiratory: Chest Non-Tender, Lungs Clear, No Accessory Muscle Use, No Respiratory Distress, Normal Breath Sounds Cardiovascular: No Edema, No JVD, No Murmur, No Gallop, Normal Peripheral Pulses, Regular Rate/Rhythm Breast Exam: Deferred Gastrointestinal: RUQ (localized TTP RUQ ), Tenderness Genitalia: Deferred Pelvic: Deferred Rectal: Deferred Extremities: No calf tenderness, Normal capillary refill, Normal inspection, Normal range of motion, Non-tender, No pedal edema Musculoskeletal : Apperance: Normal Neurologic: Alert, printing supplies sales representative II-XII nml as Tested, No Motor Deficits, Normal Affect, Normal Mood, No Sensory Deficits Cerebellar Function: Normal Reflexes: Normal Skin: Dry, Normal Color, Warm Lymphatic: No Adenopathy Was a procedure done? Was a procedure done?: No GI differential Dx Differential Diagnosis: Cholecystitis, Gastritis/PUD, Gastroenteritis, Electrolyte Imbalance X-Ray, Labs, Meds, VS Vital Signs Date Time Temp Pulse Resp B/P (MAP) Pulse Ox O2 Delivery O2 Flow Rate FiO2 04/08/25 09:14 98.1 65 20 116/82 97 98.1 Lab Test 04/08/25 09:49 04/08/25 09:42 Range/Units White Blood Count 10.1 4.4-10.8 10^3/uL Red Blood Count 4.44 4.0-5.20 10^6/uL Hemoglobin 14.1 12.2-16.2 g/dL Hematocrit 39.6 36.0-46.0 % Mean Corpuscular Volume 89.2 80.0-100.0 fL Mean Corpuscular Hemoglobin 31.8 28.0-32.0 pg Mean Corpuscular Hemoglobin Concent 35.6 32.0-36.0 g/dL Red Cell Distribution Width 13.2 11.8-14.3 % Platelet Count 299 140-450 10^3/uL Mean Platelet Volume 8.4 6.9-10.8 fL Neutrophils (%) (Auto) 59.3 37.0-80.0 % Lymphocytes (%) (Auto) 30.7 10.0-50.0 % Monocytes (%) (Auto) 7.4 0.0-12.0 % Eosinophils (%) (Auto) 2.1 0.0-7.0 % Basophils (%) (Auto) 0.5 0.0-2.0 % Neutrophils # (Auto) 6.0 1.6-8.6 10 ^3/uL Lymphocytes # (Auto) 3.1 0.4-5.4 10 ^3/uL Monocytes # (Auto) 0.8 0-1.3 10 ^3/uL Eosinophils # (Auto) 0.2 0-0.8 10 ^3/uL Basophils # (Auto) 0 0-0.2 10 ^3/uL Nucleated Red Blood Cells 0.1 % Sodium Level 140 136-145 mmol/L Potassium Level 3.8 3.5-5.1 mmol/L Chloride Level 108 H 98-107 mmol/L Carbon Dioxide Level 23 20-31 mmol/L Anion Gap 9 5-15 Blood Urea Nitrogen 8 L 9-23 mg/dL Creatinine 0.73 0.550-1.02 mg/dL Glomerular Filtration Rate Calc 113 >90 mL/min BUN/Creatinine Ratio 11.0 10.0-20.0 Serum Glucose 103 74-106 mg/dL Calcium Level 9.6 8.7-10.4 mg/dL Total Bilirubin 0.4 0.2-1.0 mg/dL Aspartate Amino Transferase (AST) 22 13-40 U/L Alanine Aminotransferase (ALT) 10 7-40 U/L Alkaline Phosphatase 82 46-116 U/L Total Protein 7.0 5.7-8.2 g/dL Albumin 4.5 3.2-4.8 g/dL Lipase 51 12-53 U/L Urine Color Colorless Yellow Urine Clarity Ex.turbid Clear Urine pH 7.0 5.0-9.0 Urine Specific [place] 1.015 1.001-1.035 Urine Protein Negative Negative Urine Ketones Negative Negative Urine Blood Negative Negative /uL Urine Nitrite Negative Negative Urine Bilirubin Negative Negative Urine Urobilinogen Normal Negative mg/dL Urine Leukocyte Esterase Negative Negative /uL Urine RBC 3 0 - 4 /hpf Urine Microscopic WBC 9 H 0-5 /HPF Urine Squamous Epithelial Cells Few <5 /hpf Urine Amorphous Crystals Few None Seen /hpf Urine Bacteria None seen None Seen /hpf Urine Mucus Few None Seen Urine Glucose Normal Normal mg/dL Urine Test Negative Negative PATIENT: JENIFER CARMONAT: [id number]: [id number] : 1995 LOC: ER ROOM / BED: / AGE / SEX: 30 / F ADM STATUS: REG ER SERVICE [id number] ORDERING PHYSICIAN: CRIS MARCH NP PROCEDURE(s): LIVUS - LIVER REASON: RUQ pain ORDER NUMBER(s): [id number], ACCESSION NUMBER(s): [id number] INDICATION: RUQ pain TECHNIQUE: Multiple real-time sonographic images of the abdomen were obtained. COMPARISON: None FINDINGS: The liver is heterogenous in echogenicity. The liver measures 15cm. No intrahepatic biliary ductal dilatation is noted. The gallbladder wall measures 0.3 cm and is unremarkable. Gallstones are noted. The common duct measures 0.3 cm and is unremarkable. No pericholecystic fluid is noted. The right kidney measures 9cm. No hydronephrosis. The pancreas is not well visualized due to obscuration from bowel gas. The visualized portions of the IVC and aorta are grossly unremarkable. IMPRESSION: Hepatic steatosis. Gallstones. Gallbladder sludge. ATED BY: TINO CRABTREE MD DICTATED DATE/TIME: 04/08/25 1031 SIGNED BY: TINO CRABTREE MD SIGNED DATE/TIME: 04/08/25 1031 CC: X-Ray, Labs, Meds, VS Comment A 30-year-old female with no past medical history presents to the emergency department with a chief complaint of abdominal pain onset 2 days. Peripheral IV insertion+ labs were ordered. CBC was ordered to exclude anemia, blood loss, or infection. CMP was ordered to exclude electrolyte abnormalities, renal failure, dehydration, hyperglycemia and/or liver enzyme abnormalities. Urinalysis was ordered to rule out UTI or hematuria. PREGUA was ordered. Lipase was ordered. Diagnostic imaging ordered by me and results interpreted by radiology : US LIVER: IMPRESSION: Hepatic steatosis. Gallstones. Gallbladder sludge. Patient was given: Zofran PO . Tolerated medications with no adverse reaction. The patient presented to the Emergency Department with upper abdominal pain. History, exam and work up as noted above demonstrated cause of pain most consistent with biliary colic. History, exam and workup noted above do not suggest appendicitis, diverticulitis/diverticulosis, cholecystitis, abscess, pneumonia, urinary tract infection/pyelonephritis, bowel obstruction, hernia or other genitourinary etiology. Patients work up was remarkable for gallstones, RUQ pain, unable to maintain foods. The patient's workup reveals that the patient needs further evaluation and/or treatment for the above medical conditions. Patient verbalized understanding of the above and is awaiting further evaluation by the admitting service. Time of 1ST Reevaluation: 10:05 Reevaluation 1ST: Improved Time of 2ND Reevaluation: 11:12 Reevaluation 2ND: Unchanged Patient Education/Counseling: Diagnosis, Treatment Family Education/Counseling: No Family Present SEPSIS Sepsis Screen Date sepsis recognized/suspect: Apr 08, 2025 Time Sepsis recognized/suspect: 913 Recent Procedure: No On Antibiotic Therapy: No Respiratory Rate >20: No Heart Rate >90: No Temp<36 C (96.8 F) or >38.3 C: No SBP <90 or MAP <65 mmHG: No New Acute Mental Status Change: No Is the patient on CPAP, BIPAP,: No Physician Orders LIVER (04/08/25 09:42) Vital Signs Date Time Temp Pulse Resp B/P (MAP) Pulse Ox O2 Delivery O2 Flow Rate FiO2 04/08/25 09:14 98.1 65 20 116/82 97 98.1 Laboratory Tests Test 04/08/25 09:49 White Blood Count 10.1 10^3/uL (4.4-10.8) Departure 1 Departure Time of Disposition: 11:12 Impression: Primary Impression: Gallstones Additional Impression: RUQ abdominal pain Disposition: ADMITTED INPATIENT Condition: Serious e-Prescriptions Hydrocodone-Acetaminophen (Hydrocodone Bitartrate/AC 5-325 mg) 1 Tab Tab 1 TAB PO QID PRN, #30 TAB Prov: CHRIS INGRAM MD 04/13/25 Levofloxacin Hemihydrate (LEVAQUIN 500 MG) 500 Mg Tab 1 TAB PO DAILY, #10 TAB Prov: CHRIS INGRAM MD 04/13/25 Metronidazole (Flagyl) 500 Mg Tab 1 TAB PO TID, #30 TAB Prov: CHRIS INGRAM MD 04/13/25 Critical Care Note Critical Care Time?: No Stability Stability form required: No Heart Score Heart Score: Heart Score Response (Comments) Value History N/A 0 EKG N/A 0 Age N/A 0 Risk Factors N/A 0 Troponin N/A 0 Total 0 I personally scribed for CRIS MARCH NP ([email or web address]) on 04/08/25 at 09:43. Electronically submitted by Radha Kong ([email or web address]). I personally scribed for CRIS MARCH NP ([email or web address]) on 04/08/25 at 09:45. Electronically submitted by Radha Kong ([email or web address]). I personally scribed for CRIS MARCH NP ([email or web address]) on 04/08/25 at 09:47. Electronically submitted by Radha Kong ([email or web address]). I personally scribed for CRIS MARCH NP ([email or web address]) on 04/08/25 at 11:20. Electronically submitted by Radha Kong ([email or web address]). CRIS MARCH NP Apr 08, 2025 09:43
[2025-04-08] MEDS: ONDANSETRON ODT 4 MG TAB PO ONE (09:53)
[2025-04-08 10:14] LABS: Hematocrit 39.6 % (36.0-46.0); Hemoglobin 14.1 g/dL (12.2-16.2); Mean Corpuscular Hemoglobin 31.8 pg (28.0-32.0); Mean Corpuscular Volume 89.2 fL (80.0-100.0); Nucleated Red Blood Cells % 0.1 %
[2025-04-08 10:29] LABS: Alanine Aminotransferase 10 U/L (7-40); Albumin 4.5 g/dL (3.2-4.8); Alkaline Phosphatase 82 U/L (46-116); Anion Gap 9 (5-15); BUN/Creatinine Ratio 11.0 (10.0-20.0); Bilirubin, Total 0.4 mg/dL (0.2-1.0); Calcium 9.6 mg/dL (8.7-10.4); Carbon Dioxide 23 mmol/L (20-31); Glucose 103 mg/dL (74-106); Potassium 3.8 mmol/L (3.5-5.1); Sodium 140 mmol/L (136-145); Total Protein 7.0 g/dL (5.7-8.2)
[2025-04-08 10:30] LABS: Blood Urea Nitrogen 8 mg/dL (9-23); Chloride 108 mmol/L (98-107)
--- NOTE | 2025-04-08 10:33 | DVH ---
INDICATION: RUQ pain TECHNIQUE: Multiple real-time sonographic images of the abdomen were obtained. COMPARISON: None FINDINGS: The liver is heterogenous in echogenicity. The liver measures 15cm. No intrahepatic biliar y ductal dilatation is noted. The gallbladder wall measures 0.3 cm and is unremarkable. Gallstones are noted. The common duct yaneth ures 0.3 cm and is unremarkable. No pericholecystic fluid is noted. The right kidney measures 9cm. No hydronephrosis. The pancreas is not well visualized due to obscuration from bowel gas. The visualized portions of the IVC and aorta are grossly unremarkable. IMPRESSION: Hepatic steatosis. Gallstones. Gallbladder sludge.
[2025-04-08 10:36] LABS: Urine Amorphous Crystal FEW /hpf (None Seen); Urine Protein, UAD Negative (Negative)
[2025-04-08 10:40] LABS: Lipase 51 U/L (12-53)
[2025-04-08] MEDS: SODIUM CHLORIDE 0.9% 1,000 ML IV ONE ×2 (12:15→13:29)
[2025-04-08] MEDS ORDERED: DOCUSATE SOD 100 MG CAP PO PRN (12:15)
[2025-04-08] MEDS ORDERED: METOCLOPRAMIDE HCL 5MG/ml INJ 2ml VIAL IV PRN (12:15)
[2025-04-08] MEDS ORDERED: ACETAMINOPHEN 325 MG TAB PO PRN (12:15)
--- NOTE | 2025-04-08 12:18 | DVHHP2 ---
History of Present Illness Reason for Visit: Abdominal pain History of Present Illness Chasity Doss is a 30-year-old female with past medial history of anxiety and depression who has been off her medications for about 5 months. She came to the hospital for abdominal pain. Patient states she has been experiencing intermittent epigastric pain for about 1 month. It worsens when she eats. Over the last 2 days the pain has moved to more of her RUQ area, has become continuous, more severe, and with associated nausea. Psych: Anxiety, Depression Smoke: <1 pack per day (Vape) ALCOHOL: rare Drugs: None Lives: with Family Domestic Violence: Neg Review of Systems Constitutional: No: Fever, Chills, Sweats, Weakness, Malaise, Other Eyes: No: Pain, Vision change, Conjunctivae inflammation, Eyelid inflammation, Other, Redness ENT: No: Ear pain, Ear discharge, Nose pain, Nose discharge, Nose congestion, Mouth pain, Mouth swelling, Throat pain, Throat swelling, Other Respiratory: No: Cough, Dry, Shortness of breath, SOB with excertion, Wheezing, Hemoptysis, Pleuritic Pain, Sputum, Wheezing, Other Cardiovascular: No: Chest Pain, Palpitations, Orthopnea, Paroxysmal Noc. Dyspnea, Edema, Lt Headedness, Other Gastrointestinal: Nausea, Abdominal Pain (RUQ); No: Vomiting, Diarrhea, Constipation, Melena, Hematochezia, Other Genitourinary: No Dysuria, No Frequency, No Incontinence, No Hematuria, No Retention, No Other Musculoskeletal: No: other, neck pain, shoulder pain, arm pain, back pain, hand pain, leg pain, foot pain Skin: No: Rash, Lesions, Jaundice, Bruising, Other Neurological: No: Weakness, Numbness, Incoordination, Change in speech, Confusion, Seizures, Other Allergies: Coded Allergies: NO KNOWN ALLERGIES (Unverified , 11/03/24) Exam Vital Signs Vital Signs Date Time Temp Pulse Resp B/P (MAP) Pulse Ox O2 Delivery O2 Flow Rate FiO2 04/08/25 09:14 98.1 65 20 116/82 97 98.1 General Appearance: Alert, Oriented X3, Cooperative, mild distress HEENT: Atraumatic, PERRLA, Other (Mucous membr. dry) Respiratory: Clear to auscultation, Normal air movement Cardiovascular: Regular rate, Normal S1, Normal S2, No murmurs Abdominal: Normal bowel sounds, Soft, Other (epigastric to RUQ pain) Extremities: No clubbing, No cyanosis, No edema, Normal pulses, No t enderness/swelling Skin: No rashes, No breakdown, No significant lesion Neuro: Normal gait, Normal speech, Strength at 5/5 X4 ext Psych/Mental Status: Mental status NL, Mood NL Labs/Xrays Labs Test 04/08/25 09:49 04/08/25 09:42 Range/Units White Blood Count 10.1 4.4-10.8 10^3/uL Red Blood Count 4.44 4.0-5.20 10^6/uL Hemoglobin 14.1 12.2-16.2 g/dL Hematocrit 39.6 36.0-46.0 % Mean Corpuscular Volume 89.2 80.0-100.0 fL Mean Corpuscular Hemoglobin 31.8 28.0-32.0 pg Mean Corpuscular Hemoglobin Concent 35.6 32.0-36.0 g/dL Red Cell Distribution Width 13.2 11.8-14.3 % Platelet Count 299 140-450 10^3/uL Mean Platelet Volume 8.4 6.9-10.8 fL Neutrophils (%) (Auto) 59.3 37.0-80.0 % Lymphocytes (%) (Auto) 30.7 10.0-50.0 % Monocytes (%) (Auto) 7.4 0.0-12.0 % Eosinophils (%) (Auto) 2.1 0.0-7.0 % Basophils (%) (Auto) 0.5 0.0-2.0 % Neutrophils # (Auto) 6.0 1.6-8.6 10 ^3/uL Lymphocytes # (Auto) 3.1 0.4-5.4 10 ^3/uL Monocytes # (Auto) 0.8 0-1.3 10 ^3/uL Eosinophils # (Auto) 0.2 0-0.8 10 ^3/uL Basophils # (Auto) 0 0-0.2 10 ^3/uL Nucleated Red Blood Cells 0.1 % Sodium Level 140 136-145 mmol/L Potassium Level 3.8 3.5-5.1 mmol/L Chloride Level 108 H 98-107 mmol/L Carbon Dioxide Level 23 20-31 mmol/L Anion Gap 9 5-15 Blood Urea Nitrogen 8 L 9-23 mg/dL Creatinine 0.73 0.550-1.02 mg/dL Glomerular Filtration Rate Calc 113 >90 mL/min BUN/Creatinine Ratio 11.0 10.0-20.0 Serum Glucose 103 74-106 mg/dL Calcium Level 9.6 8.7-10.4 mg/dL Total Bilirubin 0.4 0.2-1.0 mg/dL Aspartate Amino Transferase (AST) 22 13-40 U/L Alanine Aminotransferase (ALT) 10 7-40 U/L Alkaline Phosphatase 82 46-116 U/L Total Protein 7.0 5.7-8.2 g/dL Albumin 4.5 3.2-4.8 g/dL Lipase 51 12-53 U/L Urine Color Colorless Yellow Urine Clarity Ex.turbid Clear Urine pH 7.0 5.0-9.0 Urine Specific [place] 1.015 1.001-1.035 Urine Protein Negative Negative Urine Ketones Negative Negative Urine Blood Negative Negative /uL Urine Nitrite Negative Negative Urine Bilirubin Negative Negative Urine Urobilinogen Normal Negative mg/dL Urine Leukocyte Esterase Negative Negative /uL Urine RBC 3 0 - 4 /hpf Urine Microscopic WBC 9 H 0-5 /HPF Urine Squamous Epithelial Cells Few <5 /hpf Urine Amorphous Crystals Few None Seen /hpf Urine Bacteria None seen None Seen /hpf Urine Mucus Few None Seen Urine Glucose Normal Normal mg/dL Urine Test Negative Negative Liver Ultrasound: FINDINGS: The liver is heterogenous in echogenicity. The liver measures 15cm. No intrahepatic biliary ductal dilatation is noted. The gallbladder wall measures 0.3 cm and is unremarkable. Gallstones are noted. The common duct measures 0.3 cm and is unremarkable. No pericholecystic fluid is noted. The right kidney measures 9cm. No hydronephrosis. The pancreas is not well visualized due to obscuration from bowel gas. The visualized portions of the IVC and aorta are grossly unremarkable. IMPRESSION: Hepatic steatosis. Gallstones. Gallbladder sludge. SEPSIS Sepsis Screen Date sepsis recognized/suspect: Apr 08, 2025 Time Sepsis recognized/suspect: 913 Recent Procedure: No On Antibiotic Therapy: No Respiratory Rate >20: No Heart Rate >90: No Temp<36 C (96.8 F) or >38.3 C: No SBP <90 or MAP <65 mmHG: No New Acute Mental Status Change: No Is the patient on CPAP, BIPAP,: No Physician Orders LIVER (04/08/25 09:42) Admit (04/08/25 12:02) Code Status (04/08/25 12:02) Hydrocodone-Acet 5/325mg Tab ([place] 5/32 (04/08/25 12:15) Ondansetron Hcl (Zofran) (04/08/25 12:15) Docusate Sodium Capsule (Colace Capsule) (04/08/25 12:15) Complete Blood Count (04/09/25 04:00) Comprehensive Metabolic Panel (04/09/25 04:00) Condition: Serious (04/08/25 12:02) Acetaminophen Tablet (Tylenol Tablet) (04/08/25 12:15) * Surgical Consult (04/08/25 ) * Gi Dvh Sql Programmer Analyst (04/08/25 12:02) Nm Hida Scan (04/08/25 12:02) Metoclopramide Injection (Reglan Injecti (04/08/25 12:15) NS (04/08/25 12:15) NS (04/08/25 12:15) Npo Except Ice Chips (04/08/25 12:02) Npo (Nothing By Mouth) Diet (04/08/25 Lunch) Vital Signs Date Time Temp Pulse Resp B/P (MAP) Pulse Ox O2 Delivery O2 Flow Rate FiO2 04/08/25 09:14 98.1 65 20 116/82 97 98.1 Laboratory Tests Test 04/08/25 09:49 White Blood Count 10.1 10^3/uL (4.4-10.8) Medications Medications Dose Ordered Sig/Uma Route Start Time Stop Time Status Last Admin Dose Admin Ondansetron HCl 4 mg ONCE ONCE PO 04/08/25 09:45 04/08/25 09:46 DC 04/08/25 09:53 4 MG Assessment/Plan Assessment/Plan Assessment: Cholelithiasis, Intractable abdominal pain, Anxiety, Depression, Plan: Admit to Med-Surg, GI consult, Surgical consult, HIDA Scan, NPO, IV hydration, Pain management, Antiemetics, Plan discussed with: Patient My Orders Orders - BERNARDINO LOPEZ [employer] Procedure Category Date Status Time Admit ADMIT 04/08/25 Transmitted 12:02 Code Status CODE 04/08/25 Transmitted 12:02 Hydrocodone-Acet PHA 04/08/25 Transmitted 5/325mg Tab ([place] 12:15 Ondansetron Hcl PHA 04/08/25 Transmitted (Zofran) 12:15 Docusate Sodium PHA 04/08/25 Transmitted Capsule (Colace 12:15 Complete Blood Count LAB 04/09/25 Verified 04:00 Comprehensive LAB 04/09/25 Verified Metabolic Panel 04:00 Condition: Serious VIJAYA 04/08/25 Transmitted 12:02 Acetaminophen Tablet PHA 04/08/25 Transmitted (Tylenol Tablet) 12:15 * Surgical Consult CONS 04/08/25 Transmitted * Gi Dvh Sql Programmer Analyst CONS 04/08/25 Transmitted 12:02 Nm Hida Scan NM 04/08/25 Logged 12:02 Metoclopramide PHA 04/08/25 Transmitted Injection (Reglan 12:15 NS PHA 04/08/25 Transmitted 12:15 NS PHA 04/08/25 Transmitted 12:15 Npo Except Ice Chips VIJAYA 04/08/25 Transmitted 12:02 Npo (Nothing By DIET 04/08/25 Transmitted Mouth) Diet Lunch Date of Service: Apr 08, 2025 Billing Provider: BERNARDINO LOPEZ Common Visit Codes: [id number] INP/OBS CARE (MOD) BERNARDINO LOPEZ Apr 08, 2025 12:18
[2025-04-08] MEDS: HYDROcodone-ACET 5/325MG TAB PO PRN (14:12)
[2025-04-08] MEDS: ONDANSETRON HCL 4 MG/2 ML VIAL IV PRN (22:09)
[2025-04-08] MEDS: MORPHINE SULFATE INJ 2 MG/ml SYRG IV ONE (22:10)
[2025-04-09 02:44] VITALS: PULSE 68; RESP 18; O2SAT 98
[2025-04-09 05:46] LABS: Hematocrit 36.6 % (36.0-46.0); Hemoglobin 12.9 g/dL (12.2-16.2); Mean Corpuscular Hemoglobin 31.3 pg (28.0-32.0); Mean Corpuscular Volume 88.9 fL (80.0-100.0); Nucleated Red Blood Cells % 0.1 %
[2025-04-09 06:01] LABS: Alanine Aminotransferase 10 U/L (7-40); Albumin 4.1 g/dL (3.2-4.8); Alkaline Phosphatase 60 U/L (46-116); Anion Gap 10 (5-15); BUN/Creatinine Ratio 9.2 (10.0-20.0); Bilirubin, Total 0.7 mg/dL (0.2-1.0); Calcium 8.9 mg/dL (8.7-10.4); Carbon Dioxide 24 mmol/L (20-31); Chloride 104 mmol/L (98-107); Glucose 86 mg/dL (74-106); Potassium 3.6 mmol/L (3.5-5.1); Sodium 138 mmol/L (136-145); Total Protein 6.4 g/dL (5.7-8.2)
[2025-04-09 06:02] LABS: Blood Urea Nitrogen 6 mg/dL (9-23)
[2025-04-09 09:00] VITALS: BP 98/53; PULSE 48; RESP 17; TEMP 97.8; O2SAT 97
[2025-04-09 13:00] VITALS: BP 104/64; PULSE 54; RESP 17; TEMP 98.6; O2SAT 97
--- NOTE | 2025-04-09 13:08 | DVH ---
Procedure: NM NM HIDA SCAN Exam Date: 04/09/2025 08:18 AM Clinical History: Cholelithiasis ; abdominal pain Comparison Study: None Nuclear Medicine Hepatobiliary Scan. Technique: Following the intravenous administration of 5.5 mCi of technetium 99m labeled Choletec multiple plana r abdominal planar images were obtained in anterior projection in 5 minute intervals for45 minutes . Right lateral images were obtained at 45 minutes after injection. Findings: The liver appears grossly normal in size. There is no abnormal persistence of the cardiac or blood po ol activity. Gallbladder is not visualized. Impression: Gallbladder is not visualized.
--- NOTE | 2025-04-09 13:59 | DVHINCON2 ---
GI Consult Consult Note GI consult note Date of Consultation: 04/09/2025 Chief Complaint: Cholelithiasis Referring Physician: Izabela RAUSCH H&P: 30-year-old female with past medical history of anxiety and depression presented to ER with complains of abdominal pain. Patient was having abdominal bloating and right upper quadrant pain on and off for the past month, which got worse in the last three days. Patient has nausea denies vomiting. No fevers or chills Past Medical History: Anxiety, depression Past Surgical History: Denies Social History: + vape denies drinking ETOH and use of illegal drugs. Family History: Noncontributory Review of Systems: Constitutional: no fever, chill, weight loss HEENT: no eye pain, no hearing loss, no oral lesion, no scleral icterus Heart: no chest pain, no chest pressure Lung: no cough, no dyspnea with exertion Abdomen: see HPI Physical exam: General: NAD, AAOX3 Chest: lung hansen clear to auscultation Heart: RRR, no murmur Abdomen: + right upper quadrant tenderness to palpation, +BS Labs: Labs Test 04/09/25 04:58 04/08/25 09:49 04/08/25 09:42 Range/Units White Blood Count 9.6 4.4-10.8 10^3/uL Red Blood Count 4.11 4.0-5.20 10^6/uL Hemoglobin 12.9 12.2-16.2 g/dL Hematocrit 36.6 36.0-46.0 % Mean Corpuscular Volume 88.9 80.0-100.0 fL Mean Corpuscular Hemoglobin 31.3 28.0-32.0 pg Mean Corpuscular Hemoglobin Concent 35.2 32.0-36.0 g/dL Red Cell Distribution Width 13.3 11.8-14.3 % Platelet Count 268 140-450 10^3/uL Mean Platelet Volume 8.6 6.9-10.8 fL Neutrophils (%) (Auto) 55.6 37.0-80.0 % Lymphocytes (%) (Auto) 35.2 10.0-50.0 % Monocytes (%) (Auto) 6.8 0.0-12.0 % Eosinophils (%) (Auto) 1.9 0.0-7.0 % Basophils (%) (Auto) 0.5 0.0-2.0 % Neutrophils # (Auto) 5.4 1.6-8.6 10 ^3/uL Lymphocytes # (Auto) 3.4 0.4-5.4 10 ^3/uL Monocytes # (Auto) 0.7 0-1.3 10 ^3/uL Eosinophils # (Auto) 0.2 0-0.8 10 ^3/uL Basophils # (Auto) 0.1 0-0.2 10 ^3/uL Nucleated Red Blood Cells 0.1 % Sodium Level 138 136-145 mmol/L Potassium Level 3.6 3.5-5.1 mmol/L Chloride Level 104 98-107 mmol/L Carbon Dioxide Level 24 20-31 mmol/L Anion Gap 10 5-15 Blood Urea Nitrogen 6 L 9-23 mg/dL Creatinine 0.65 0.550-1.02 mg/dL Glomerular Filtration Rate Calc 121 >90 mL/min BUN/Creatinine Ratio 9.2 L 10.0-20.0 Serum Glucose 86 74-106 mg/dL Calcium Level 8.9 8.7-10.4 mg/dL Total Bilirubin 0.7 0.2-1.0 mg/dL Aspartate Amino Transferase (AST) 25 13-40 U/L Alanine Aminotransferase (ALT) 10 7-40 U/L Alkaline Phosphatase 60 46-116 U/L Total Protein 6.4 5.7-8.2 g/dL Albumin 4.1 3.2-4.8 g/dL Lipase 51 12-53 U/L Urine Color Colorless Yellow Urine Clarity Ex.turbid Clear Urine pH 7.0 5.0-9.0 Urine Specific [place] 1.015 1.001-1.035 Urine Protein Negative Negative Urine Ketones Negative Negative Urine Blood Negative Negative /uL Urine Nitrite Negative Negative Urine Bilirubin Negative Negative Urine Urobilinogen Normal Negative mg/dL Urine Leukocyte Esterase Negative Negative /uL Urine RBC 3 0 - 4 /hpf Urine Microscopic WBC 9 H 0-5 /HPF Urine Squamous Epithelial Cells Few <5 /hpf Urine Amorphous Crystals Few None Seen /hpf Urine Bacteria None seen None Seen /hpf Urine Mucus Few None Seen Urine Glucose Normal Normal mg/dL Urine Test Negative Negative Imaging: Gallbladder ultrasound IMPRESSION: Hepatic steatosis. Gallstones. Gallbladder sludge. HIDA Findings: The liver appears grossly normal in size. There is no abnormal persistence of the cardiac or blood pool activity. Gallbladder is not visualized. Impression: Gallbladder is not visualized. Assessment: Abdominal pain Cholelithiasis Plan: Discussed with Dr. Campos Surgical consult pending NPO We will continue to monitor patient Discussed plan with patient and RN Thank you for this consult Date of Service: Apr 09, 2025 Billing Provider: KHUSHI INGRAM Common Visit Codes: CONSULT ONLY Consultation Codes: [id number] CONSULT <60MIN KHUSHI INGRAM Apr 09, 2025 13:59
[2025-04-09 17:36] VITALS: BP 100/72; PULSE 60; RESP 17; TEMP 98.2; O2SAT 98
--- NOTE | 2025-04-09 17:46 | DVHPN2 ---
Subjective Seen and examined at bedside. c/o abdominal pain. Await Surgical consult. Changes from previous H/P or p: No Changes Eyes: No Pain, No Vision change, No Conjunctivae inflammation, No Eyelid inflammation, No Other, No Redness ENT: No Ear pain, No Ear discharge, No Nose pain, No Nose discharge, No Nose congestion, No Mouth pain, No Mouth swelling, No Throat pain, No Throat swelling, No Other Cardiovascular: No Chest Pain, No Palpitations, No Orthopnea, No Paroxysmal Noc. Dyspnea, No Edema, No Lt Headedness, No Other Respiratory: No Cough, No Dry, No Shortness of breath, No SOB with excertion, No Wheezing, No Hemoptysis, No Pleuritic Pain, No Sputum, No Other Gastrointestinal: Nausea; No Vomiting; Abdominal Pain (RUQ); No Diarrhea, No Constipation, No Melena, No Hematochezia, No Other Genitourinary: No Dysuria, No Frequency, No Incontinence, No Hematuria, No Retention, No Other Musculoskeletal: No other, No neck pain, No shoulder pain, No arm pain, No back pain, No hand pain, No leg pain, No foot pain Skin: No Rash, No Lesions, No Jaundice, No Bruising, No Other Objective Vitals Vital Signs Date Time Temp Pulse Resp B/P (MAP) Pulse Ox O2 Delivery O2 Flow Rate FiO2 04/09/25 17:36 98.2 60 17 100/72 (81) 98 98.2 04/09/25 02:44 Room Air* 0 21 Intake/Output Intake and Output 04/09/25 07:00 Intake Total 720 ml Balance 720 ml Intake Oral 720 ml # Voids 2 General Appearance: Alert, Oriented X3, Cooperative, No acute distress Lungs: Clear to auscultation Cardiovascular: Regular rate, Normal S1, Normal S2 Abdomen: Other (RUQ Tenderness) Medications Current Medications Medications Dose Ordered Sig/Uma Route Start Time Stop Time Status Last Admin Dose Admin Acetaminophen/ Hydrocodone Bitart 1 tab Q4HP PRN PO 04/08/25 12:15 04/08/25 14:12 1 TAB Ondansetron HCl 4 mg Q4HP PRN IV 04/08/25 12:15 04/08/25 22:09 4 MG Docusate Sodium 100 mg BIDPRN PRN PO 04/08/25 12:15 Acetaminophen 650 mg Q6HP PRN PO 04/08/25 12:15 Metoclopramide HCl 10 mg Q6HPRN PRN IV 04/08/25 12:15 Hold Laboratory Results Laboratory Tests 04/09/25 04:58 Chemistry Test 04/09/25 04:58 Albumin 4.1 g/dL (3.2-4.8) Calcium Level 8.9 mg/dL (8.7-10.4) Total Protein 6.4 g/dL (5.7-8.2) LFT Test 04/09/25 04:58 Alanine Aminotransferase (ALT) 10 U/L (7-40) Alkaline Phosphatase 60 U/L (46-116) Aspartate Amino Transferase (AST) 25 U/L (13-40) Total Bilirubin 0.7 mg/dL (0.2-1.0) Urinalysis Test 04/08/25 09:42 Urine Color Colorless (Yellow) Urine Clarity Ex.turbid (Clear) Urine pH 7.0 (5.0-9.0) Urine Specific [place] 1.015 (1.001-1.035) Urine Protein Negative (Negative) Urine Ketones Negative (Negative) Urine Blood Negative /uL (Negative) Urine Nitrite Negative (Negative) Urine Bilirubin Negative (Negative) Urine Urobilinogen Normal mg/dL (Negative) Urine Leukocyte Esterase Negative /uL (Negative) Urine RBC 3 /hpf (0 - 4) Urine Microscopic WBC 9 /HPF (0-5) H Urine Squamous Epithelial Cells Few /hpf (<5) Urine Amorphous Crystals Few /hpf (None Seen) Urine Bacteria None seen /hpf (None Seen) Urine Mucus Few (None Seen) Urine Glucose Normal mg/dL (Normal) Urine Test Negative (Negative) Assessment/Plan Assessment/Plan # Possible Acute Cholecystitis - Zosyn IV - Surgical Consult # Anxiety and Depression- Stable Plan discussed with: Patient My Orders Orders - JASE CHAVEZ MD Procedure Category Date Status Time Pantoprazole PHA 04/09/25 Transmitted (Protonix) 22:00 Chest Portable XY 04/09/25 Transmitted 17:40 Partial LAB 04/10/25 Verified Thromboplastin Time 04:00 Prothrombin Time W/ LAB 04/10/25 Verified INR 04:00 Date of Service: Apr 09, 2025 Billing Provider: JASE CHAVEZ MD Common Visit Codes: [id number] INP/OBS CARE(HIGH) JASE CHAVEZ MD Apr 09, 2025 17:46
[2025-04-09] MEDS: PIPERACILLIN-TAZOB 3.375GM 100 ML IV ONE (18:27)
--- NOTE | 2025-04-09 19:55 | DVH ---
CHEST RADIOGRAPH REASON FOR EXAM: preop COMPARISON: None TECHNIQUE: One view of the chest is provided FINDINGS: The cardiomediastinal silhouette is within normal limits for technique. There is no focal a irspace disease. There is no significant pleural effusion. No acute bony abnormality is identified. IMPRESSION: No radiographic evidence of acute cardiopulmonary process.
[2025-04-09 20:00] VITALS: PULSE 56; RESP 16; O2SAT 96
--- NOTE | 2025-04-09 20:38 | DVHINCON2 ---
Consultation - Surgical Date Seen: Apr 09, 2025 Referring Physician Referring Physician er Reason for Consultation epigastric pain History of Present Illness History of Present Illness 30-year-old female with past medial history of anxiety and depression who has b een off her medications for about 5 months. She came to the hospital for abdominal pain. Patient states she has been experiencing intermittent epigastric pain for about 1 month. It worsens when she eats. Over the last 2 days the pain has moved to more of her RUQ area, has become continuous, more severe, and with associated nausea. The patient states she has been having this pain now for several months on and off. However over the last 48 hours this pain was significantly worse than normal. HIDA scan demonstrated no filling of the gallbladder. Past Medical/Surgical History Past Medical/Surgical History No surgical history Family and Social History Family and Social History Nonsmoker Allergies and medications Allergies: Coded Allergies: NO KNOWN ALLERGIES (Unverified , 11/03/24) Home Meds Reported Medications Magnesium Oxide (MAGNESIUM OXIDE) 400 Mg Tab, 1 TAB PO, #30 TAB 5 Refills 11/03/24 Melatonin (KP MELATONIN) 3 Mg Tab, 5 MG PO, TAB 11/03/24 Escitalopram Oxalate (Lexapro) 10 Mg Tab, 1 TAB PO DAILY, #90 TAB 3 Refills 11/03/24 Review of systems Review of Systems: HEENT:Normal, CVS:Normal, RESPIRATORY:Normal, GI:Normal, :Abnormal, MSK:Normal, NEURO:Normal Examination Vital signs Vital Signs Date Time Temp Pulse Resp B/P (MAP) Pulse Ox O2 Delivery O2 Flow Rate FiO2 04/09/25 17:36 98.2 60 17 100/72 (81) 98 98.2 04/09/25 02:44 Room Air* 0 21 Medications Current Medications Medications (Trade) Dose Ordered Sig/Uma Route PRN Reason Start Time Stop Time Status Last Admin Pantoprazole Sodium (Protonix) 40 mg BID IV 04/09/25 22:00 Piperacillin Sod/ Tazobactam Sod 100 ml @ 25 mls/hr Q8HR IV 04/09/25 22:00 Laboratory Labs Test 04/09/25 04:58 04/08/25 09:49 04/08/25 09:42 Range/Units White Blood Count 9.6 4.4-10.8 10^3/uL Red Blood Count 4.11 4.0-5.20 10^6/uL Hemoglobin 12.9 12.2-16.2 g/dL Hematocrit 36.6 36.0-46.0 % Mean Corpuscular Volume 88.9 80.0-100.0 fL Mean Corpuscular Hemoglobin 31.3 28.0-32.0 pg Mean Corpuscular Hemoglobin Concent 35.2 32.0-36.0 g/dL Red Cell Distribution Width 13.3 11.8-14.3 % Platelet Count 268 140-450 10^3/uL Mean Platelet Volume 8.6 6.9-10.8 fL Neutrophils (%) (Auto) 55.6 37.0-80.0 % Lymphocytes (%) (Auto) 35.2 10.0-50.0 % Monocytes (%) (Auto) 6.8 0.0-12.0 % Eosinophils (%) (Auto) 1.9 0.0-7.0 % Basophils (%) (Auto) 0.5 0.0-2.0 % Neutrophils # (Auto) 5.4 1.6-8.6 10 ^3/uL Lymphocytes # (Auto) 3.4 0.4-5.4 10 ^3/uL Monocytes # (Auto) 0.7 0-1.3 10 ^3/uL Eosinophils # (Auto) 0.2 0-0.8 10 ^3/uL Basophils # (Auto) 0.1 0-0.2 10 ^3/uL Nucleated Red Blood Cells 0.1 % Sodium Level 138 136-145 mmol/L Potassium Level 3.6 3.5-5.1 mmol/L Chloride Level 104 98-107 mmol/L Carbon Dioxide Level 24 20-31 mmol/L Anion Gap 10 5-15 Blood Urea Nitrogen 6 L 9-23 mg/dL Creatinine 0.65 0.550-1.02 mg/dL Glomerular Filtration Rate Calc 121 >90 mL/min BUN/Creatinine Ratio 9.2 L 10.0-20.0 Serum Glucose 86 74-106 mg/dL Calcium Level 8.9 8.7-10.4 mg/dL Total Bilirubin 0.7 0.2-1.0 mg/dL Aspartate Amino Transferase (AST) 25 13-40 U/L Alanine Aminotransferase (ALT) 10 7-40 U/L Alkaline Phosphatase 60 46-116 U/L Total Protein 6.4 5.7-8.2 g/dL Albumin 4.1 3.2-4.8 g/dL Lipase 51 12-53 U/L Urine Color Colorless Yellow Urine Clarity Ex.turbid Clear Urine pH 7.0 5.0-9.0 Urine Specific [place] 1.015 1.001-1.035 Urine Protein Negative Negative Urine Ketones Negative Negative Urine Blood Negative Negative /uL Urine Nitrite Negative Negative Urine Bilirubin Negative Negative Urine Urobilinogen Normal Negative mg/dL Urine Leukocyte Esterase Negative Negative /uL Urine RBC 3 0 - 4 /hpf Urine Microscopic WBC 9 H 0-5 /HPF Urine Squamous Epithelial Cells Few <5 /hpf Urine Amorphous Crystals Few None Seen /hpf Urine Bacteria None seen None Seen /hpf Urine Mucus Few None Seen Urine Glucose Normal Normal mg/dL Urine Test Negative Negative TECHNIQUE: Multiple real-time sonographic images of the abdomen were obtained. COMPARISON: None FINDINGS: The liver is heterogenous in echogenicity. The liver measures 15cm. No intrahepatic biliary ductal dilatation is noted. The gallbladder wall measures 0.3 cm and is unremarkable. Gallstones are noted. The common duct measures 0.3 cm and is unremarkable. No pericholecystic fluid is noted. The right kidney measures 9cm. No hydronephrosis. The pancreas is not well visualized due to obscuration from bowel gas. The visualized portions of the IVC and aorta are grossly unremarkable. IMPRESSION: Hepatic steatosis. Gallstones. Gallbladder sludge. Procedure: OR NM HIDA SCAN Exam Date: 04/09/2025 08:18 AM Clinical History: Cholelithiasis ; abdominal pain Comparison Study: None Nuclear Medicine Hepatobiliary Scan. Technique: Following the intravenous administration of 5.5 mCi of technetium 99m labeled Choletec multiple planar abdominal planar images were obtained in anterior projection in 5 minute intervals for45 minutes . Right lateral images were obtained at 45 minutes after injection. Findings: The liver appears grossly normal in size. There is no abnormal persistence of the cardiac or blood pool activity. Gallbladder is not visualized. Impression: Gallbladder is not visualized. Examination: GENERAL:Normal, HEENT:Normal, NECK:Normal, CVS:Normal, ABDOMEN:Abnormal (Tenderness to deep palpation right upper quadrant no rebound no guarding), MSK:Normal Problem List/Assessment/Plan Problems: (1) Cholelithiases (2) RUQ abdominal pain Assessment and Plan 30-year-old female with signs and symptoms consistent with a cholecystitis. NPO after midnight IV fluids IV antibiotics Plan for laparoscopic possible open cholecystectomy in the next 24 hours Plan discussed with Plan discussed with: Patient Visit Coding Surgery Date of Service if different f: Apr 09, 2025 Billing Provider: CHU HERNANDEZ Jr., MD Surgery Visit Codes: [id number] - INP CONSULT <80 MIN CHU HERNANDEZ Jr., MD Apr 09, 2025 20:38
[2025-04-09 21:00] VITALS: BP 104/61; PULSE 56; RESP 16; TEMP 99.1; O2SAT 96
[2025-04-09] MEDS: PANTOPRAZOLE 40 MG/10 ML VIAL INJ IV SCH (21:47)
[2025-04-09] MEDS: PIPERACILLIN-TAZOB 3.375GM 100 ML IV SCH (21:47)
[2025-04-09] MEDS: MELATONIN 5 MG TAB PO ONE (21:51)
[2025-04-10] VITALS (8 sets, daily range): BP systolic 92–107; BP diastolic 50–65; PULSE 52–72; RESP 14–18; TEMP 97.4–99.7; O2SAT 96–100
[2025-04-10 06:37] LABS: Hematocrit 39.9 % (36.0-46.0); Hemoglobin 14.3 g/dL (12.2-16.2); Mean Corpuscular Hemoglobin 31.7 pg (28.0-32.0); Mean Corpuscular Volume 88.5 fL (80.0-100.0); Nucleated Red Blood Cells % 0.1 %
[2025-04-10 07:03] LABS: Alanine Aminotransferase 10 U/L (7-40); Alkaline Phosphatase 66 U/L (46-116); Anion Gap 12 (5-15); BUN/Creatinine Ratio 12.5 (10.0-20.0); Blood Urea Nitrogen 10 mg/dL (9-23); Calcium 9.4 mg/dL (8.7-10.4); Carbon Dioxide 24 mmol/L (20-31); Chloride 101 mmol/L (98-107); Glucose 75 mg/dL (74-106); Potassium 3.8 mmol/L (3.5-5.1); Sodium 137 mmol/L (136-145); Total Protein 7.1 g/dL (5.7-8.2)
[2025-04-10 07:04] LABS: Albumin 4.5 g/dL (3.2-4.8)
[2025-04-10 07:05] LABS: Bilirubin, Total 1.0 mg/dL (0.2-1.0)
[2025-04-10 07:46] LABS: INR 1.0 (0.9-1.15); Partial Thromboplastin Time 28.8 SEC (24.5-34.5); Prothrombin Time 10.6 sec (9.3-11.8)
--- NOTE | 2025-04-10 10:33 | DVHPN2 ---
Subjective Date Seen: Apr 10, 2025 Post op day Post op day: 0 Patient reports: No new complaints Nursing reports: No new complaints General: Normal HNT: Normal Cardiovascular: Normal Respiratory: Normal Gastrointestinal: Abdominal Pain Genitourinary: Normal Musculoskeletal: Normal Neurological: Normal Objective Vitals Vital Sign Date Time Temp Pulse Resp B/P (MAP) Pulse Ox O2 Delivery O2 Flow Rate FiO2 04/10/25 08:00 71 18 96 Room Air* 0 21 04/10/25 05:00 98.6 95/64 (74) 98.6 Total Intake and Output 04/09/25 04/09/25 04/10/25 15:00 23:00 07:00 Intake Total 0 ml 100 ml Balance 0 ml 100 ml Medications Current Medications Medications Dose Ordered Sig/Uma Route Start Time Stop Time Status Last Admin Dose Admin Acetaminophen/ Hydrocodone Bitart 1 tab Q4HP PRN PO 04/08/25 12:15 04/08/25 14:12 1 TAB Ondansetron HCl 4 mg Q4HP PRN IV 04/08/25 12:15 04/08/25 22:09 4 MG Docusate Sodium 100 mg BIDPRN PRN PO 04/08/25 12:15 Acetaminophen 650 mg Q6HP PRN PO 04/08/25 12:15 Metoclopramide HCl 10 mg Q6HPRN PRN IV 04/08/25 12:15 Hold Pantoprazole Sodium 40 mg BID IV 04/09/25 22:00 04/09/25 21:47 40 MG Piperacillin Sod/ Tazobactam Sod 100 ml @ 25 mls/hr Q8HR IV 04/09/25 22:00 04/10/25 05:22 25 MLS/HR General: Normal, Well developed Head/Eyes: Normal ENT: Normal Neck: Normal Lungs: Normal, Normal inspection Cardiovascular: Normal Abdominal: Normal Abdomen quadrants: RUQ Tenderness Musculoskeletal: Normal, Full Range of Motion Extremities: Normal Skin: Normal, Normal inspection Labs and Microbiology Laboratory Tests 04/10/25 05:29 Test 04/10/25 05:29 Range/Units Serum Glucose 75 74-106 mg/dL Ass/Plan Assessment/Plan patient complaint of RUQ pain especially after a meals HIDA scan non visualized gallbladder RUQ tenderness , positive Escudero sign Plan: NPO Laparoscopic possibly open cholecystectomy tomorrow AM Plan discussed with patient, Dr. Webb Visit Coding Surgery Date of Service if different f: Apr 10, 2025 Billing Provider: LD WEBB MD Surgery Visit Codes: [id number] INP/OBS CARE(HIGH) ALKA BELTRÁN NP Apr 10, 2025 10:33
--- NOTE | 2025-04-10 14:07 | DVHPN2 ---
Subjective Seen and examined at bedside. Abdominal pain improved. For Dontrell cordero AM Changes from previous H/P or p: No Changes Eyes: No Pain, No Vision change, No Conjunctivae inflammation, No Eyelid inflammation, No Other, No Redness ENT: No Ear pain, No Ear discharge, No Nose pain, No Nose discharge, No Nose congestion, No Mouth pain, No Mouth swelling, No Throat pain, No Throat swelling, No Other Cardiovascular: No Chest Pain, No Palpitations, No Orthopnea, No Paroxysmal Noc. Dyspnea, No Edema, No Lt Headedness, No Other Respiratory: No Cough, No Dry, No Shortness of breath, No SOB with excertion, No Wheezing, No Hemoptysis, No Pleuritic Pain, No Sputum, No Other Gastrointestinal: No Nausea, No Vomiting, No Abdominal Pain, No Diarrhea, No Constipation, No Melena, No Hematochezia, No Other Genitourinary: No Dysuria, No Frequency, No Incontinence, No Hematuria, No Retention, No Other Musculoskeletal: No other, No neck pain, No shoulder pain, No arm pain, No back pain, No hand pain, No leg pain, No foot pain Skin: No Rash, No Lesions, No Jaundice, No Bruising, No Other Objective Vitals Vital Signs Date Time Temp Pulse Resp B/P (MAP) Pulse Ox O2 Delivery O2 Flow Rate FiO2 04/10/25 08:30 98.6 52 14 98/50 (66) 98 98.6 04/10/25 08:00 Room Air* 0 21 Intake/Output Intake and Output 04/10/25 07:00 Intake Total 100 ml Balance 100 ml Intake Oral 0 ml IV Total 100 ml # Voids 3 General Appearance: Alert, Oriented X3, Cooperative, No acute distress Lungs: Clear to auscultation Cardiovascular: Regular rate, Normal S1, Normal S2 Abdomen: Other (RUQ Tenderness) Medications Current Medications Medications Dose Ordered Sig/Uma Route Start Time Stop Time Status Last Admin Dose Admin Acetaminophen/ Hydrocodone Bitart 1 tab Q4HP PRN PO 04/08/25 12:15 04/08/25 14:12 1 TAB Ondansetron HCl 4 mg Q4HP PRN IV 04/08/25 12:15 04/08/25 22:09 4 MG Docusate Sodium 100 mg BIDPRN PRN PO 04/08/25 12:15 Acetaminophen 650 mg Q6HP PRN PO 04/08/25 12:15 Metoclopramide HCl 10 mg Q6HPRN PRN IV 04/08/25 12:15 Hold Pantoprazole Sodium 40 mg BID IV 04/09/25 22:00 04/10/25 10:06 40 MG Piperacillin Sod/ Tazobactam Sod 100 ml @ 25 mls/hr Q8HR IV 04/09/25 22:00 04/10/25 05:22 25 MLS/HR Laboratory Results Laboratory Tests 04/10/25 05:29 Chemistry Test 04/10/25 05:29 Albumin 4.5 g/dL (3.2-4.8) Calcium Level 9.4 mg/dL (8.7-10.4) Total Protein 7.1 g/dL (5.7-8.2) Coagulation Test 04/10/25 05:29 Prothrombin Time 10.6 sec (9.3-11.8) Prothrombin Time INR 1.0 (0.9-1.15) Activated Partial Thromboplast Time 28.8 SEC (24.5-34.5) LFT Test 04/10/25 05:29 Alanine Aminotransferase (ALT) 10 U/L (7-40) Alkaline Phosphatase 66 U/L (46-116) Aspartate Amino Transferase (AST) 25 U/L (13-40) Total Bilirubin 1.0 mg/dL (0.2-1.0) Urinalysis Test 04/08/25 09:42 Urine Color Colorless (Yellow) Urine Clarity Ex.turbid (Clear) Urine pH 7.0 (5.0-9.0) Urine Specific [place] 1.015 (1.001-1.035) Urine Protein Negative (Negative) Urine Ketones Negative (Negative) Urine Blood Negative /uL (Negative) Urine Nitrite Negative (Negative) Urine Bilirubin Negative (Negative) Urine Urobilinogen Normal mg/dL (Negative) Urine Leukocyte Esterase Negative /uL (Negative) Urine RBC 3 /hpf (0 - 4) Urine Microscopic WBC 9 /HPF (0-5) H Urine Squamous Epithelial Cells Few /hpf (<5) Urine Amorphous Crystals Few /hpf (None Seen) Urine Bacteria None seen /hpf (None Seen) Urine Mucus Few (None Seen) Urine Glucose Normal mg/dL (Normal) Urine Test Negative (Negative) Assessment/Plan Assessment/Plan # Possible Acute Cholecystitis - Zosyn IV - Surgical Consult for Lap choley gil # Anxiety and Depression- Stable Plan discussed with: Patient My Orders Orders - JASE CHAVEZ MD Procedure Category Date Status Time Pantoprazole PHA 04/09/25 In Process (Protonix) 22:00 Chest Portable XY 04/09/25 Resulted 17:40 Piperacillin-Tazob PHA 04/09/25 In Process 3.375gm (Zosyn 3.375g 22:00 Date of Service: Apr 10, 2025 Billing Provider: JASE CHAVEZ MD Common Visit Codes: [id number] INP/OBS CARE(HIGH) JASE CHAVEZ MD Apr 10, 2025 14:07
--- NOTE | 2025-04-10 14:29 | DVHPN2 ---
Progress Note - Dictate Date Seen: Apr 10, 2025 Medical Necessity Reason Pt with a Central, PICC or Fol: No Subjective No new complaints Abdominal pain has resolved No nausea vomiting She is tolerating ice chips and water HIDA scan was positive Liver enzymes are normal vital signs Vital Sign Date Time Temp Pulse Resp B/P (MAP) Pulse Ox O2 Delivery O2 Flow Rate FiO2 04/10/25 08:30 98.6 52 14 98/50 (66) 98 98.6 04/10/25 08:00 Room Air* 0 21 Total Intake and Output 04/09/25 04/09/25 04/10/25 15:00 23:00 07:00 Intake Total 0 ml 100 ml Balance 0 ml 100 ml medications Current Medications Medications Dose Ordered Sig/Uma Route Start Time Stop Time Status Last Admin Dose Admin Acetaminophen/ Hydrocodone Bitart 1 tab Q4HP PRN PO 04/08/25 12:15 04/08/25 14:12 1 TAB Ondansetron HCl 4 mg Q4HP PRN IV 04/08/25 12:15 04/08/25 22:09 4 MG Docusate Sodium 100 mg BIDPRN PRN PO 04/08/25 12:15 Acetaminophen 650 mg Q6HP PRN PO 04/08/25 12:15 Metoclopramide HCl 10 mg Q6HPRN PRN IV 04/08/25 12:15 Hold Pantoprazole Sodium 40 mg BID IV 04/09/25 22:00 04/10/25 10:06 40 MG Piperacillin Sod/ Tazobactam Sod 100 ml @ 25 mls/hr Q8HR IV 04/09/25 22:00 04/10/25 05:22 25 MLS/HR objective General: NAD, AAOX3 Chest: lung hansen clear to auscultation Heart: RRR, no murmur Abdomen: + right upper quadrant tenderness to palpation, +BS laboratory and microbiology Laboratory Tests 04/10/25 05:29 Test 04/10/25 05:29 Range/Units Serum Glucose 75 74-106 mg/dL Problems(with codes): (1) Cholelithiases (2) RUQ abdominal pain (3) Abnormal biliary HIDA scan (4) Acute cholecystitis Prognosis Plan Patient is scheduled tentatively for cholecystectomy tomorrow Monitor labs, trial of clear liquids Plan discussed with: Patient KATELYN LEWIS MD Apr 10, 2025 14:29
[2025-04-11] VITALS (10 sets, daily range): BP systolic 101–113; BP diastolic 67–81; PULSE 55–118; RESP 15–25; TEMP 97.7–99.4; O2SAT 95–100
[2025-04-11] MEDS: MELATONIN 5 MG TAB PO ONE (00:59)
[2025-04-11] MEDS: MELATONIN 5 MG TAB ONE (01:00)
[2025-04-11] MEDS: D5W/SOD CHL 0.45% 1,000 ML IV SCH (05:53)
[2025-04-11] MEDS ORDERED: KETAMINE 50mg/ML 1ml syringe ONE (07:54)
[2025-04-11] MEDS ORDERED: LIDOCAINE 1% INJ PF 5ML AMP ONE (07:54)
[2025-04-11] MEDS ORDERED: PROPOFOL 10 MG/ML 20 ML IV ONE (07:54)
[2025-04-11] MEDS ORDERED: HYDROmorphone HCL 2 MG/ML VL/or syr ONE (07:54)
[2025-04-11] MEDS ORDERED: ONDANSETRON HCL 4 MG/2 ML VIAL ONE (07:54)
[2025-04-11] MEDS ORDERED: SODIUM CHLORIDE LOCK 10 ML ONE (07:54)
[2025-04-11] MEDS ORDERED: LIDOCAINE HCL 2% TOP JELLY 5ML TOP ONE (07:54)
[2025-04-11] MEDS ORDERED: MIDAZOLAM HCL 2MG/2ML 2ml VIAL (1mg/ml) ONE (07:54)
[2025-04-11] MEDS ORDERED: fentaNYL CITRATE 100 MCG/2 ML VL ONE (07:54)
[2025-04-11] MEDS ORDERED: HYDROmorphone HCL 2 MG/ML VL/or syr IV PRN (08:45)
[2025-04-11] MEDS ORDERED: MORPHINE SULFATE 4 MG/ML SYR/VIAL IV PRN (08:45)
[2025-04-11] MEDS ORDERED: MORPHINE SULFATE INJ 2 MG/ml SYRG IV PRN (08:45)
[2025-04-11] MEDS: ceFAZolin 2 GM/D5W50ml 50 ML IV ONE (09:01)
[2025-04-11] MEDS: BUPIVACAINE HCL 0.25% P/F 10 ML VIAL ONE (09:31)
[2025-04-11] MEDS: LIDOCAINE W/ EPINEPHRINE 1% 20ML VIAL ONE (09:31)
[2025-04-11] MEDS ORDERED: SUGAMMADEX 200mg/2ml Vial (100MG/ML) IV ONE (09:42)
[2025-04-11] MEDS: HYDROmorphone HCL 2 MG/ML VL/or syr IV PRN ×2 (10:54→23:19)
[2025-04-11] MEDS: SUCCINYLCHOLINE CHLORIDE 20 MG/ML 10ML VIAL IV ONE (10:56)
[2025-04-11] MEDS: POVIDONE IODINE 10 % TOPICAL OINT 30GM TOP ONE (10:56)
[2025-04-11] MEDS: ROCURONIUM 10MG/ML 10ML VIAL IV ONE (10:56)
--- NOTE | 2025-04-11 10:56 | DVHOP ---
DATE OF SURGERY: 04/11/2025 PREOPERATIVE DIAGNOSES: * Cholelithiasis. * Cholecystitis. POSTOPERATIVE DIAGNOSES: * Cholelithiasis. * Cholecystitis. SURGEON: Aniceto Webb MD [employer]ER: Wing Colvin. ANESTHESIA: General endotracheal. ANESTHESIOLOGIST: Dr. Gee. PROCEDURES: Laparoscopy, laparoscopic cholecystectomy DESCRIPTION OF PROCEDURE: Under general endotracheal anesthesia with the patient's skin prepped and draped, a supraumbilical incision was made and Veress needle inserted into the peritoneal cavity by the hanging drop technique in order to establish pneumoperitoneum to 15 mmHg pressure by insufflation with carbon dioxide. With the abdomen fully distended, the needle was removed and replaced with a 5-mm trocar port through which a 0-degree viewing laparoscope was inserted and under direct vision, 5 and 10 mm ports inserted through the right axillary 5 mm port through the right anterior axillary line at the level of the umbilicus and a 10 mm port through the subxiphoid skin in the midline. Instrumentation was introduced and laparoscopy was conducted revealing no obvious unexpected pathology on the serosal surfaces visualized. The gallbladder was affected by acute cholecystitis as well as chronic changes consistent with chronic cholecystitis. The gallbladder was placed on tension. The cystic duct and cystic artery were identified, circumferentially dissected, skeletonized, and traced into the hepatocystic triangle so as to minimize the potential for inadvertent injury to the common bile duct. Cystic duct and cystic artery were then divided between metallic clips close to the gallbladder again attempting to avoid any inadvertent injury to the common bile duct or hepatic artery. Following division of these structures, the gallbladder was resected from its liver bed by electrocautery and traction. The fully mobilized gallbladder was removed from the peritoneal cavity by placement in a specimen extraction bag, which was introduced through the subxiphoid incision. Subsequent to removal of the gallbladder from peritoneal cavity, the right upper quadrant was profusely irrigated. Irrigant was aspirated. Hemostasis was meticulously accomplished and found to be complete at the termination of the procedure. There was no evidence of bleeding from either the port sites or from the liver bed of the gallbladder. Instrumentation was withdrawn. Pneumoperitoneum was evacuated. The fascial defect was closed using 0 Vicryl. Wounds approximated using Monocryl sutures, Dermabond glue, and Steri-Strips. The patient remained stable throughout the procedure, left the operating room following an accurate needle and sponge count. Her field contact person, Nora, was thoroughly informed at [phone]. MD JERICA Latif/JOE/KAREN TID: [id number] RECEIPT: [id number]
[2025-04-11] MEDS: KETOROLAC TROMETH 30 MG/ML 1ML VIAL IV ONE (12:10)
[2025-04-11] MEDS: METOCLOPRAMIDE HCL 5MG/ml INJ 2ml VIAL IV ONE (12:10)
--- NOTE | 2025-04-11 12:28 | DVHPN2 ---
Reviewed: Care Plan, H&P, Labs, Medications, Previous Orders, Radiology Changes from previous H/P or p: No Changes Eyes: No Pain, No Vision change, No Conjunctivae inflammation, No Eyelid inflammation, No Other, No Redness ENT: No Ear pain, No Ear discharge, No Nose pain, No Nose discharge, No Nose congestion, No Mouth pain, No Mouth swelling, No Throat pain, No Throat swelling, No Other Cardiovascular: No Chest Pain, No Palpitations, No Orthopnea, No Paroxysmal Noc. Dyspnea, No Edema, No Lt Headedness, No Other Respiratory: No Cough, No Dry, No Shortness of breath, No SOB with excertion, No Wheezing, No Hemoptysis, No Pleuritic Pain, No Sputum, No Other Gastrointestinal: No Nausea, No Vomiting, No Abdominal Pain, No Diarrhea, No Constipation, No Melena, No Hematochezia, No Other Genitourinary: No Dysuria, No Frequency, No Incontinence, No Hematuria, No Retention, No Other Musculoskeletal: No other, No neck pain, No shoulder pain, No arm pain, No back pain, No hand pain, No leg pain, No foot pain Skin: No Rash, No Lesions, No Jaundice, No Bruising, No Other Objective Vitals Vital Signs Date Time Temp Pulse Resp B/P (MAP) Pulse Ox O2 Delivery O2 Flow Rate FiO2 04/11/25 11:30 87 22 96 Nasal Cannula 1.0 04/11/25 11:30 96 04/11/25 11:26 120/77 04/11/25 10:12 97.2 97.2 Intake/Output Intake and Output 04/11/25 07:00 Intake Total 300 ml Balance 300 ml IV Total 300 ml # Voids 2 General Appearance: Alert, Oriented X3, Cooperative, No acute distress Lungs: Clear to auscultation Cardiovascular: Regular rate, Normal S1, Normal S2 Abdomen: Other (RUQ Tenderness) Medications Current Medications Medications Dose Ordered Sig/Uma Route Start Time Stop Time Status Last Admin Dose Admin Acetaminophen/ Hydrocodone Bitart 1 tab Q4HP PRN PO 04/08/25 12:15 04/08/25 14:12 1 TAB Ondansetron HCl 4 mg Q4HP PRN IV 04/08/25 12:15 04/08/25 22:09 4 MG Docusate Sodium 100 mg BIDPRN PRN PO 04/08/25 12:15 Acetaminophen 650 mg Q6HP PRN PO 04/08/25 12:15 Metoclopramide HCl 10 mg Q6HPRN PRN IV 04/08/25 12:15 Hold Pantoprazole Sodium 40 mg BID IV 04/09/25 22:00 04/10/25 22:51 40 MG Piperacillin Sod/ Tazobactam Sod 100 ml @ 25 mls/hr Q8HR IV 04/09/25 22:00 04/11/25 06:10 25 MLS/HR Dextrose/Sodium Chloride 1,000 ml @ 100 mls/hr Q10H IV 04/10/25 18:15 04/11/25 05:53 100 MLS/HR Morphine Sulfate 2 mg Q4H PRN IV 04/11/25 08:45 04/11/25 12:46 Hydromorphone HCl 0.5 mg Q2HPRN PRN IV 04/11/25 10:30 Laboratory Results Laboratory Tests 04/10/25 05:29 Urinalysis Test 04/08/25 09:42 Urine Color Colorless (Yellow) Urine Clarity Ex.turbid (Clear) Urine pH 7.0 (5.0-9.0) Urine Specific [place] 1.015 (1.001-1.035) Urine Protein Negative (Negative) Urine Ketones Negative (Negative) Urine Blood Negative /uL (Negative) Urine Nitrite Negative (Negative) Urine Bilirubin Negative (Negative) Urine Urobilinogen Normal mg/dL (Negative) Urine Leukocyte Esterase Negative /uL (Negative) Urine RBC 3 /hpf (0 - 4) Urine Microscopic WBC 9 /HPF (0-5) H Urine Squamous Epithelial Cells Few /hpf (<5) Urine Amorphous Crystals Few /hpf (None Seen) Urine Bacteria None seen /hpf (None Seen) Urine Mucus Few (None Seen) Urine Glucose Normal mg/dL (Normal) Urine Test Negative (Negative) Labs and/or images reviewed: Labs reviewed by me, Image(s) reviewed by me Assessment/Plan Assessment/Plan Acute cholecystitis status post lap aftab by Dr. Webb 04/11/2025 Anxiety Depression Plan discussed with: Patient Date of Service: Apr 11, 2025 Billing Provider: CHRIS INGRAM MD Common Visit Codes: [id number] INP/OBS CARE(HIGH) CHRIS INGRAM MD Apr 11, 2025 12:28
--- NOTE | 2025-04-11 21:16 | DVHPN2 ---
Progress Note - Dictate Date Seen: Apr 11, 2025 Medical Necessity Reason Pt with a Central, PICC or Fol: No Subjective Patient underwent laparoscopic cholecystectomy this morning Patient is resting comfortably, minimal postop pain No nausea vomiting Tolerating clear liquid diet vital signs Vital Sign Date Time Temp Pulse Resp B/P (MAP) Pulse Ox O2 Delivery O2 Flow Rate FiO2 04/11/25 17:00 97.7 86 19 104/76 (85) 100 97.7 04/11/25 11:30 Nasal Cannula 1.0 04/11/25 11:30 96 Total Intake and Output 04/10/25 04/10/25 04/11/25 15:00 23:00 07:00 Intake Total 100 ml 100 ml 100 ml Balance 100 ml 100 ml 100 ml medications Current Medications Medications Dose Ordered Sig/Uma Route Start Time Stop Time Status Last Admin Dose Admin Acetaminophen/ Hydrocodone Bitart 1 tab Q4HP PRN PO 04/08/25 12:15 04/11/25 15:16 1 TAB Ondansetron HCl 4 mg Q4HP PRN IV 04/08/25 12:15 04/08/25 22:09 4 MG Docusate Sodium 100 mg BIDPRN PRN PO 04/08/25 12:15 Acetaminophen 650 mg Q6HP PRN PO 04/08/25 12:15 Metoclopramide HCl 10 mg Q6HPRN PRN IV 04/08/25 12:15 Hold Pantoprazole Sodium 40 mg BID IV 04/09/25 22:00 04/10/25 22:51 40 MG Piperacillin Sod/ Tazobactam Sod 100 ml @ 25 mls/hr Q8HR IV 04/09/25 22:00 04/11/25 13:16 25 MLS/HR Dextrose/Sodium Chloride 1,000 ml @ 100 mls/hr Q10H IV 04/10/25 18:15 04/11/25 05:53 100 MLS/HR Hydromorphone HCl 0.5 mg Q2HPRN PRN IV 04/11/25 10:30 objective General: NAD, AAOX3 Chest: lung hansen clear to auscultation Heart: RRR, no murmur Abdomen: + right upper quadrant tenderness to palpation, +BS laboratory and microbiology Laboratory Tests 04/10/25 05:29 Test 04/10/25 05:29 Range/Units Serum Glucose 75 74-106 mg/dL Problems(with codes): (1) Abnormal biliary HIDA scan (2) Acute cholecystitis (3) Cholelithiases (4) RUQ abdominal pain (5) Gallstones Prognosis Plan Continue postop care Advance diet as tolerated IV antibiotics Monitor labs Plan discussed with: Other (None) KATELYN LEWIS MD Apr 11, 2025 21:16
[2025-04-11] MEDS ORDERED: MELATONIN 5 MG TAB PO ONE ×2 (22:00)
[2025-04-12] VITALS (7 sets, daily range): BP systolic 82–113; BP diastolic 51–77; PULSE 51–86; RESP 17–19; TEMP 96.8–98.2; O2SAT 96–100
[2025-04-12 07:49] LABS: Hematocrit 41.1 % (36.0-46.0); Hemoglobin 14.2 g/dL (12.2-16.2); Mean Corpuscular Hemoglobin 30.8 pg (28.0-32.0); Mean Corpuscular Volume 89.2 fL (80.0-100.0); Nucleated Red Blood Cells % 0.0 %
--- NOTE | 2025-04-12 11:07 | DVHPN2 ---
Progress Note Date Seen: Apr 12, 2025 Medical Necessity Reason Pt with a Central, PICC or Fol: No Objective vital signs Vital Sign Date Time Temp Pulse Resp B/P (MAP) Pulse Ox O2 Delivery O2 Flow Rate FiO2 04/12/25 07:30 86 19 100 Room Air* 0 21 04/12/25 07:23 104/76 04/12/25 05:00 97.9 97.9 Total Intake and Output 04/11/25 04/11/25 04/12/25 15:00 23:00 07:00 Intake Total 150 ml 380 ml 850 ml Balance 150 ml 380 ml 850 ml medications Current Medications Medications Dose Ordered Sig/Uma Route Start Time Stop Time Status Last Admin Dose Admin Acetaminophen/ Hydrocodone Bitart 1 tab Q4HP PRN PO 04/08/25 12:15 04/12/25 08:50 1 TAB Ondansetron HCl 4 mg Q4HP PRN IV 04/08/25 12:15 04/08/25 22:09 4 MG Docusate Sodium 100 mg BIDPRN PRN PO 04/08/25 12:15 Acetaminophen 650 mg Q6HP PRN PO 04/08/25 12:15 Metoclopramide HCl 10 mg Q6HPRN PRN IV 04/08/25 12:15 Hold Pantoprazole Sodium 40 mg BID IV 04/09/25 22:00 04/12/25 08:45 40 MG Piperacillin Sod/ Tazobactam Sod 100 ml @ 25 mls/hr Q8HR IV 04/09/25 22:00 04/12/25 06:50 25 MLS/HR Dextrose/Sodium Chloride 1,000 ml @ 100 mls/hr Q10H IV 04/10/25 18:15 04/11/25 05:53 100 MLS/HR Hydromorphone HCl 0.5 mg Q2HPRN PRN IV 04/11/25 10:30 04/12/25 06:53 0.5 MG laboratory and microbiology Laboratory Tests 04/12/25 07:13 04/10/25 05:29 Test 04/10/25 05:29 Range/Units Serum Glucose 75 74-106 mg/dL Problem List/Assessment/Plan Problem List/Assessment/Plan 04/12/25 she feels better but developed significant leukocytosis with a left shift, wounds clean and well approximated, abdomen non distended appropriately tender, will advance diet and ambulation, if WBC normalized will discharge tomorrow Plan discussed with: Patient LD MALDONADO MD Apr 12, 2025 11:07
[2025-04-12] MEDS ORDERED: IBUPROFEN 600 MG TAB PO PRN (12:45)
[2025-04-12] MEDS ORDERED: ACETAMINOPHEN 325 MG TAB PO PRN (13:00)
[2025-04-12] MEDS: IBUPROFEN 600 MG TAB PO ONE (13:01)
--- NOTE | 2025-04-12 13:02 | DVH ---
EXAM: XY CHEST XRAY 1 VIEW Indication: Pain in abdominal Technique: Single frontal view of the chest was obtained Comparison: XY CHEST PORTABLE on DOS: 04/09/25 FINDINGS: Lines and Tubes: None Lungs: No focal consolidation. Pleura: No effusion. No pneumothorax. Cardiomediastinal contours: Unremarkable Bones: No acute osseous abnormality. IMPRESSION: No acute cardiopulmonary disease.
--- NOTE | 2025-04-12 13:57 | DVHPN2 ---
Subjective Patient is feeling better tolerating p.o. Reviewed: Care Plan, H&P, Labs, Medications, Previous Orders, Radiology Changes from previous H/P or p: No Changes General: Per HPI Eyes: No Pain, No Vision change, No Conjunctivae inflammation, No Eyelid inflammation, No Other, No Redness ENT: No Ear pain, No Ear discharge, No Nose pain, No Nose discharge, No Nose congestion, No Mouth pain, No Mouth swelling, No Throat pain, No Throat swelling, No Other Cardiovascular: No Chest Pain, No Palpitations, No Orthopnea, No Paroxysmal Noc. Dyspnea, No Edema, No Lt Headedness, No Other Respiratory: No Cough, No Dry, No Shortness of breath, No SOB with excertion, No Wheezing, No Hemoptysis, No Pleuritic Pain, No Sputum, No Other Gastrointestinal: No Nausea, No Vomiting, No Abdominal Pain, No Diarrhea, No Constipation, No Melena, No Hematochezia, No Other Genitourinary: No Dysuria, No Frequency, No Incontinence, No Hematuria, No Retention, No Other Musculoskeletal: No other, No neck pain, No shoulder pain, No arm pain, No back pain, No hand pain, No leg pain, No foot pain Skin: No Rash, No Lesions, No Jaundice, No Bruising, No Other Objective Vitals Vital Signs Date Time Temp Pulse Resp B/P (MAP) Pulse Ox O2 Delivery O2 Flow Rate FiO2 04/12/25 09:00 98.2 76 17 113/77 (89) 96 98.2 04/12/25 07:30 Room Air* 0 21 Intake/Output Intake and Output 04/12/25 07:00 Intake Total 1380 ml Balance 1380 ml Intake Oral 1030 ml IV Total 350 ml # Voids 4 Exam GEN: Healthy appearing, well-developed, NAD. HEENT: NC/AT; MMM. CV: RRR, no m/r/g. LUNGS: CTAB, no w/r/c. ABD: Soft, NT/ND, NBS, no masses or organomegaly. EXT: skin Warm, well perfused. no rashes. No clubbing, cyanosis, or edema. NEURO: Ambulating with no limitations. No focal deficits. General Appearance: Alert, Oriented X3, Cooperative, No acute distress Lungs: Clear to auscultation Cardiovascular: Regular rate, Normal S1, Normal S2 Abdomen: Other (RUQ Tenderness) Medications Current Medications Medications Dose Ordered Sig/Uma Route Start Time Stop Time Status Last Admin Dose Admin Ondansetron HCl 4 mg Q4HP PRN IV 04/08/25 12:15 04/08/25 22:09 4 MG Docusate Sodium 100 mg BIDPRN PRN PO 04/08/25 12:15 Metoclopramide HCl 10 mg Q6HPRN PRN IV 04/08/25 12:15 Hold Pantoprazole Sodium 40 mg BID IV 04/09/25 22:00 04/12/25 08:45 40 MG Piperacillin Sod/ Tazobactam Sod 100 ml @ 25 mls/hr Q8HR IV 04/09/25 22:00 04/12/25 13:01 25 MLS/HR Dextrose/Sodium Chloride 1,000 ml @ 100 mls/hr Q10H IV 04/10/25 18:15 04/11/25 05:53 100 MLS/HR Hydromorphone HCl 0.5 mg Q2HPRN PRN IV 04/11/25 10:30 04/12/25 06:53 0.5 MG Acetaminophen/ Hydrocodone Bitart 1 tab Q6HP PRN PO 04/12/25 12:45 Ibuprofen 600 mg Q12H PRN PO 04/12/25 12:45 Acetaminophen 650 mg Q6HP PRN PO 04/12/25 13:00 Laboratory Results Laboratory Tests 04/10/25 05:29 04/12/25 07:13 LFT Test 04/12/25 07:13 Total Bilirubin 0.8 mg/dL (0.2-1.0) Urinalysis Test 04/08/25 09:42 Urine Color Colorless (Yellow) Urine Clarity Ex.turbid (Clear) Urine pH 7.0 (5.0-9.0) Urine Specific [place] 1.015 (1.001-1.035) Urine Protein Negative (Negative) Urine Ketones Negative (Negative) Urine Blood Negative /uL (Negative) Urine Nitrite Negative (Negative) Urine Bilirubin Negative (Negative) Urine Urobilinogen Normal mg/dL (Negative) Urine Leukocyte Esterase Negative /uL (Negative) Urine RBC 3 /hpf (0 - 4) Urine Microscopic WBC 9 /HPF (0-5) H Urine Squamous Epithelial Cells Few /hpf (<5) Urine Amorphous Crystals Few /hpf (None Seen) Urine Bacteria None seen /hpf (None Seen) Urine Mucus Few (None Seen) Urine Glucose Normal mg/dL (Normal) Urine Test Negative (Negative) Labs and/or images reviewed: Labs reviewed by me, Image(s) reviewed by me Assessment/Plan Assessment/Plan 04/12: Need to keep patient 1 more day for repeat WBC. We will also get x-ray today. She is having some chest pain pleuritic right-sided. Acute cholecystitis status post lap aftab by Dr. Webb 04/11/2025 Sepsis due to above Leukocytosis Tachycardia Tachypnea Hypotension, no vasopressors Neutrophilia Anxiety Depression --continue IV antibiotics -monitor CBC daily -appreciate GI following -appreciate surgical follow up Diet regular Med surge Full code Plan discussed with: Patient My Orders Orders - ESTHER LIN MD Procedure Category Date Status Time Complete Blood Count LAB 04/13/25 Verified 04:00 Chest Xray 1 View XY 04/12/25 Resulted 12:31 Hydrocodone-Acet PHA 04/12/25 In Process 10/325mg Tab ([place] 12:45 Ibuprofen Tablet PHA 04/12/25 In Process (Motrin Tablet) 12:45 Date of Service: Apr 12, 2025 Billing Provider: ESTHER LIN MD Common Visit Codes: [id number] INP/OBS CARE(HIGH) ESTHER LIN MD Apr 12, 2025 13:57
--- NOTE | 2025-04-12 20:15 | DVHPN2 ---
Progress Note - Dictate Date Seen: Apr 12, 2025 Medical Necessity Reason Pt with a Central, PICC or Fol: No Subjective POD # 1 s/p laparoscopic cholecystectomy Complaining of right upper quadrant pain Leukocytosis has worsened to 22k Tolerating soft diet CXR negative vital signs Vital Sign Date Time Temp Pulse Resp B/P (MAP) Pulse Ox O2 Delivery O2 Flow Rate FiO2 04/12/25 17:00 97.8 51 18 84/52 (63) 98 97.8 04/12/25 07:30 Room Air* 0 21 Total Intake and Output 04/11/25 04/11/25 04/12/25 15:00 23:00 07:00 Intake Total 150 ml 380 ml 850 ml Balance 150 ml 380 ml 850 ml medications Current Medications Medications Dose Ordered Sig/Uma Route Start Time Stop Time Status Last Admin Dose Admin Ondansetron HCl 4 mg Q4HP PRN IV 04/08/25 12:15 04/08/25 22:09 4 MG Docusate Sodium 100 mg BIDPRN PRN PO 04/08/25 12:15 Metoclopramide HCl 10 mg Q6HPRN PRN IV 04/08/25 12:15 Hold Pantoprazole Sodium 40 mg BID IV 04/09/25 22:00 04/12/25 08:45 40 MG Piperacillin Sod/ Tazobactam Sod 100 ml @ 25 mls/hr Q8HR IV 04/09/25 22:00 04/12/25 13:01 25 MLS/HR Dextrose/Sodium Chloride 1,000 ml @ 100 mls/hr Q10H IV 04/10/25 18:15 04/11/25 05:53 100 MLS/HR Hydromorphone HCl 0.5 mg Q2HPRN PRN IV 04/11/25 10:30 04/12/25 06:53 0.5 MG Acetaminophen/ Hydrocodone Bitart 1 tab Q6HP PRN PO 04/12/25 12:45 Ibuprofen 600 mg Q12H PRN PO 04/12/25 12:45 Acetaminophen 650 mg Q6HP PRN PO 04/12/25 13:00 objective General: NAD, AAOX3 Chest: lung hansen clear to auscultation Heart: RRR, no murmur Abdomen: + right upper quadrant tenderness to palpation, +BS Dressing dry laboratory and microbiology Laboratory Tests 04/12/25 07:13 04/10/25 05:29 Test 04/10/25 05:29 Range/Units Serum Glucose 75 74-106 mg/dL CXR Negative Problems(with codes): (1) Abnormal biliary HIDA scan (2) Acute cholecystitis (3) Cholelithiases (4) RUQ abdominal pain (5) Gallstones Prognosis Plan Repeat labs in the morning Continue IV antibiotics Continue pain control and supportive care Surgical follow up in a.m. Dietary Evaluation Review Comments: Low fat diet for Gallbaldder issues Expected Outcomes/Goals: maintain usual wt Plan discussed with: Other (None) KATELYN LEWIS MD Apr 12, 2025 20:15
[2025-04-13 01:00] VITALS: BP 99/60; PULSE 57; RESP 17; TEMP 98.2; O2SAT 99
[2025-04-13] MEDS: HYDROcodone-ACET 10/325MG TAB PO PRN (01:57)
[2025-04-13 05:00] VITALS: BP 91/56; PULSE 54; RESP 18; TEMP 98; O2SAT 95
[2025-04-13 06:39] LABS: Hematocrit 32.9 % (36.0-46.0); Hemoglobin 11.5 g/dL (12.2-16.2); Mean Corpuscular Hemoglobin 31.3 pg (28.0-32.0); Mean Corpuscular Volume 89.9 fL (80.0-100.0); Nucleated Red Blood Cells % 0.2 %
[2025-04-13 07:12] LABS: Alanine Aminotransferase 15 U/L (7-40); Albumin 3.7 g/dL (3.2-4.8); Alkaline Phosphatase 56 U/L (46-116); Anion Gap 7 (5-15); BUN/Creatinine Ratio 5.6 (10.0-20.0); Carbon Dioxide 27 mmol/L (20-31); Chloride 107 mmol/L (98-107); Glucose 97 mg/dL (74-106); Potassium 3.5 mmol/L (3.5-5.1); Sodium 141 mmol/L (136-145); Total Protein 5.8 g/dL (5.7-8.2)
[2025-04-13 07:13] LABS: Bilirubin, Total 0.3 mg/dL (0.2-1.0)
[2025-04-13 07:15] LABS: Blood Urea Nitrogen 5 mg/dL (9-23); Calcium 8.3 mg/dL (8.7-10.4)
[2025-04-13 07:26] LABS: Lipase 57 U/L (12-53)
[2025-04-13 07:30] VITALS: PULSE 59; RESP 18; O2SAT 95
[2025-04-13] MEDS ORDERED: HYDR-4902 PO (08:06)
[2025-04-13] MEDS ORDERED: LEVO500T91 PO (08:06)
[2025-04-13] MEDS ORDERED: METR-344 PO (08:06)
--- NOTE | 2025-04-13 08:09 | DVHPN2 ---
Reviewed: Care Plan, H&P, Labs, Medications, Previous Orders, Radiology Changes from previous H/P or p: No Changes General: Per HPI Eyes: No Pain, No Vision change, No Conjunctivae inflammation, No Eyelid inflammation, No Other, No Redness ENT: No Ear pain, No Ear discharge, No Nose pain, No Nose discharge, No Nose congestion, No Mouth pain, No Mouth swelling, No Throat pain, No Throat swelling, No Other Cardiovascular: No Chest Pain, No Palpitations, No Orthopnea, No Paroxysmal Noc. Dyspnea, No Edema, No Lt Headedness, No Other Respiratory: No Cough, No Dry, No Shortness of breath, No SOB with excertion, No Wheezing, No Hemoptysis, No Pleuritic Pain, No Sputum, No Other Gastrointestinal: No Nausea, No Vomiting, No Abdominal Pain, No Diarrhea, No Constipation, No Melena, No Hematochezia, No Other Genitourinary: No Dysuria, No Frequency, No Incontinence, No Hematuria, No Retention, No Other Musculoskeletal: No other, No neck pain, No shoulder pain, No arm pain, No back pain, No hand pain, No leg pain, No foot pain Skin: No Rash, No Lesions, No Jaundice, No Bruising, No Other Objective Vitals Vital Signs Date Time Temp Pulse Resp B/P (MAP) Pulse Ox O2 Delivery O2 Flow Rate FiO2 04/13/25 07:30 59 18 95 Room Air* 0 21 04/13/25 05:00 98.0 91/56 (68) 98.0 Intake/Output Intake and Output 04/13/25 07:00 Intake Total 3335 ml Balance 3335 ml Intake Oral 1635 ml IV Total 1700 ml # Voids 4 General Appearance: Alert, Oriented X3, Cooperative, No acute distress Lungs: Clear to auscultation Cardiovascular: Regular rate, Normal S1, Normal S2 Abdomen: Other (RUQ Tenderness) Medications Current Medications Medications Dose Ordered Sig/Uma Route Start Time Stop Time Status Last Admin Dose Admin Ondansetron HCl 4 mg Q4HP PRN IV 04/08/25 12:15 04/08/25 22:09 4 MG Docusate Sodium 100 mg BIDPRN PRN PO 04/08/25 12:15 Metoclopramide HCl 10 mg Q6HPRN PRN IV 04/08/25 12:15 Hold Pantoprazole Sodium 40 mg BID IV 04/09/25 22:00 04/12/25 21:47 40 MG Piperacillin Sod/ Tazobactam Sod 100 ml @ 25 mls/hr Q8HR IV 04/09/25 22:00 04/13/25 06:33 25 MLS/HR Dextrose/Sodium Chloride 1,000 ml @ 100 mls/hr Q10H IV 04/10/25 18:15 04/13/25 02:39 100 MLS/HR Hydromorphone HCl 0.5 mg Q2HPRN PRN IV 04/11/25 10:30 04/12/25 06:53 0.5 MG Acetaminophen/ Hydrocodone Bitart 1 tab Q6HP PRN PO 04/12/25 12:45 04/13/25 01:57 1 TAB Ibuprofen 600 mg Q12H PRN PO 04/12/25 12:45 Acetaminophen 650 mg Q6HP PRN PO 04/12/25 13:00 Laboratory Results Laboratory Tests 04/13/25 05:23 Chemistry Test 04/13/25 05:23 Albumin 3.7 g/dL (3.2-4.8) Calcium Level 8.3 mg/dL (8.7-10.4) L Total Protein 5.8 g/dL (5.7-8.2) Lipid panel Test 04/13/25 05:23 Lipase 57 U/L (12-53) H LFT Test 04/13/25 05:23 Alanine Aminotransferase (ALT) 15 U/L (7-40) Alkaline Phosphatase 56 U/L (46-116) Aspartate Amino Transferase (AST) 28 U/L (13-40) Total Bilirubin 0.3 mg/dL (0.2-1.0) Urinalysis Test 04/08/25 09:42 Urine Color Colorless (Yellow) Urine Clarity Ex.turbid (Clear) Urine pH 7.0 (5.0-9.0) Urine Specific [place] 1.015 (1.001-1.035) Urine Protein Negative (Negative) Urine Ketones Negative (Negative) Urine Blood Negative /uL (Negative) Urine Nitrite Negative (Negative) Urine Bilirubin Negative (Negative) Urine Urobilinogen Normal mg/dL (Negative) Urine Leukocyte Esterase Negative /uL (Negative) Urine RBC 3 /hpf (0 - 4) Urine Microscopic WBC 9 /HPF (0-5) H Urine Squamous Epithelial Cells Few /hpf (<5) Urine Amorphous Crystals Few /hpf (None Seen) Urine Bacteria None seen /hpf (None Seen) Urine Mucus Few (None Seen) Urine Glucose Normal mg/dL (Normal) Urine Test Negative (Negative) Labs and/or images reviewed: Labs reviewed by me, Image(s) reviewed by me Assessment/Plan Assessment/Plan Acute cholecystitis status post lap aftab by Dr. Webb 04/11/2025, antibiotics pain medications Acute dehydration: IV fluids Anxiety Depression White Count is normal patient is afebrile vital signs are stable tolerating regular diet discharged home today Plan discussed with: Patient Date of Service: Apr 13, 2025 Billing Provider: CHRIS INGRAM MD Common Visit Codes: [id number] INP/OBS CARE(HIGH) CHRIS INGRAM MD Apr 13, 2025 08:09
--- NOTE | 2025-04-13 08:12 | DVHDS2 ---
Discharge Summary Date of Admission Apr 08, 2025 at 12:02 Date of Discharge: Apr 13, 2025 Admitting Diagnosis Right upper quadrant abdominal pain Wounds: Laparoscopic cholecystectomy Labs/Diagnostic Data: Laboratory Results Test 04/13/25 05:23 04/10/25 05:29 04/08/25 09:42 White Blood Count 10.5 10^3/uL (4.4-10.8) Red Blood Count 3.67 10^6/uL (4.0-5.20) Hemoglobin 11.5 g/dL (12.2-16.2) Hematocrit 32.9 % (36.0-46.0) Mean Corpuscular Volume 89.9 fL (80.0-100.0) Mean Corpuscular Hemoglobin 31.3 pg (28.0-32.0) Mean Corpuscular Hemoglobin Concent 34.8 g/dL (32.0-36.0) Red Cell Distribution Width 13.1 % (11.8-14.3) Platelet Count 219 10^3/uL (140-450) Mean Platelet Volume 8.7 fL (6.9-10.8) Neutrophils (%) (Auto) 60.8 % (37.0-80.0) Lymphocytes (%) (Auto) 31.7 % (10.0-50.0) Monocytes (%) (Auto) 7.0 % (0.0-12.0) Eosinophils (%) (Auto) 0.2 % (0.0-7.0) Basophils (%) (Auto) 0.3 % (0.0-2.0) Neutrophils # (Auto) 6.4 10 ^3/uL (1.6-8.6) Lymphocytes # (Auto) 3.3 10 ^3/uL (0.4-5.4) Monocytes # (Auto) 0.7 10 ^3/uL (0-1.3) Eosinophils # (Auto) 0 10 ^3/uL (0-0.8) Basophils # (Auto) 0 10 ^3/uL (0-0.2) Nucleated Red Blood Cells 0.2 % Sodium Level 141 mmol/L (136-145) Potassium Level 3.5 mmol/L (3.5-5.1) Chloride Level 107 mmol/L (98-107) Carbon Dioxide Level 27 mmol/L (20-31) Anion Gap 7 (5-15) Blood Urea Nitrogen 5 mg/dL (9-23) Creatinine 0.90 mg/dL (0.550-1.02) Glomerular Filtration Rate Calc 88 mL/min (>90) BUN/Creatinine Ratio 5.6 (10.0-20.0) Serum Glucose 97 mg/dL (74-106) Calcium Level 8.3 mg/dL (8.7-10.4) Total Bilirubin 0.3 mg/dL (0.2-1.0) Aspartate Amino Transferase (AST) 28 U/L (13-40) Alanine Aminotransferase (ALT) 15 U/L (7-40) Alkaline Phosphatase 56 U/L (46-116) Total Protein 5.8 g/dL (5.7-8.2) Albumin 3.7 g/dL (3.2-4.8) Lipase 57 U/L (12-53) Prothrombin Time 10.6 sec (9.3-11.8) Prothrombin Time INR 1.0 (0.9-1.15) Activated Partial Thromboplast Time 28.8 SEC (24.5-34.5) Urine Color Colorless (Yellow) Urine Clarity Ex.turbid (Clear) Urine pH 7.0 (5.0-9.0) Urine Specific [place] 1.015 (1.001-1.035) Urine Protein Negative (Negative) Urine Ketones Negative (Negative) Urine Blood Negative /uL (Negative) Urine Nitrite Negative (Negative) Urine Bilirubin Negative (Negative) Urine Urobilinogen Normal mg/dL (Negative) Urine Leukocyte Esterase Negative /uL (Negative) Urine RBC 3 /hpf (0 - 4) Urine Microscopic WBC 9 /HPF (0-5) Urine Squamous Epithelial Cells Few /hpf (<5) Urine Amorphous Crystals Few /hpf (None Seen) Urine Bacteria None seen /hpf (None Seen) Urine Mucus Few (None Seen) Urine Glucose Normal mg/dL (Normal) Urine Test Negative (Negative) Other Laboratory Tests 04/13/25 05:23 Brief Hx & Hospital Course: Admitted for acute cholecystitis. Underwent laparoscopic cholecystectomy by Dr. Webb treated with the IV antibiotics pain medications IV fluids at the time of discharge patient is afebrile abdomen is soft white count is normal tolerating regular diet. Discharged home. She will follow up with the Dr. Webb in 10 days prescription sent to the pharmacy Consults/Reason for consult Surgeon Dr. Webb GI Dr. Lelo Campos Operations or Procedures Laparoscopic cholecystectomy Condition at Discharge: Fair Final Diagnosis/Problems List Acute cholecystitis status post lap aftab by Dr. Webb 04/11/2025, antibiotics pain medications Acute dehydration: IV fluids Anxiety Depression Discharge Disposition: Home Discharge Instruct/Medications Diet: Regular Activity: Light activity Follow Up/Referral: Follow up with surgeon Dr. Webb in 10 days Medications: Flagyl Levaquin [place] Transmitted to [facility]'s Scheduled Escitalopram Oxalate (Lexapro), 1 TAB PO DAILY, (Reported) Levofloxacin Hemihydrate (Levaquin 500 Mg), 1 TAB PO DAILY Metronidazole (Flagyl), 1 TAB PO TID Scheduled PRN Hydrocodone-Acetaminophen (Hydrocodone Bitartrate/AC 5-325 mg), 1 TAB PO QID PRN Miscellaneous Medications Magnesium Oxide (Magnesium Oxide), 1 TAB PO, (Reported) Melatonin ( Melatonin), 5 MG PO, (Reported) 39 (Time taken for discharge summary 39 minutes) Discharge Statement: "Patient was advised to return to the ER or call 911 if any headaches, dizziness, shortness of breath, chest pain, abdominal pain, bleeding, fevers, or worsening of medical condition. Patient was counseled about treatment plan, medications, possible side effects, patientverbalized understanding. All questions were answered to the best of my ability. This discharge took greater then 30 minutes in planning, reviewing documentation, counseling the patient, and discussing with other team members." ASSESSMENT ASSESSMENT Hospital Course Resolved Assessment Acute cholecystitis status post lap aftab by Dr. Webb 04/11/2025, antibiotics pain medications Acute dehydration: IV fluids Anxiety Depression Date of Service: Apr 13, 2025 Billing Provider: CHRIS INGRAM MD Common Visit Codes: 24553-LGQ/OBS DISCH DAY >30min CHRIS INGRAM MD Apr 13, 2025 08:12
[2025-04-13 09:15] VITALS: BP 87/52; PULSE 61; RESP 16; TEMP 97.8; O2SAT 100
[2025-04-13 10:08] VITALS: BP 96/62; PULSE 61; RESP 16; TEMP 97.8; O2SAT 100
--- NOTE | 2025-04-13 10:50 | DVHPN2 ---
Progress Note Date Seen: Apr 13, 2025 Medical Necessity Reason Pt with a Central, PICC or Fol: No Objective vital signs Vital Sign Date Time Temp Pulse Resp B/P (MAP) Pulse Ox O2 Delivery O2 Flow Rate FiO2 04/13/25 09:15 97.8 61 16 87/52 (64) 100 97.8 04/13/25 07:30 Room Air* 0 21 Total Intake and Output 04/12/25 04/12/25 04/13/25 15:00 23:00 07:00 Intake Total 450 ml 1325 ml 1560 ml Balance 450 ml 1325 ml 1560 ml medications Current Medications Medications Dose Ordered Sig/Uma Route Start Time Stop Time Status Last Admin Dose Admin Ondansetron HCl 4 mg Q4HP PRN IV 04/08/25 12:15 04/08/25 22:09 4 MG Docusate Sodium 100 mg BIDPRN PRN PO 04/08/25 12:15 Metoclopramide HCl 10 mg Q6HPRN PRN IV 04/08/25 12:15 Hold Pantoprazole Sodium 40 mg BID IV 04/09/25 22:00 04/13/25 10:34 40 MG Piperacillin Sod/ Tazobactam Sod 100 ml @ 25 mls/hr Q8HR IV 04/09/25 22:00 04/13/25 06:33 25 MLS/HR Dextrose/Sodium Chloride 1,000 ml @ 100 mls/hr Q10H IV 04/10/25 18:15 04/13/25 02:39 100 MLS/HR Hydromorphone HCl 0.5 mg Q2HPRN PRN IV 04/11/25 10:30 04/12/25 06:53 0.5 MG Acetaminophen/ Hydrocodone Bitart 1 tab Q6HP PRN PO 04/12/25 12:45 04/13/25 01:57 1 TAB Ibuprofen 600 mg Q12H PRN PO 04/12/25 12:45 Acetaminophen 650 mg Q6HP PRN PO 04/12/25 13:00 laboratory and microbiology Laboratory Tests 04/13/25 05:23 Test 04/13/25 05:23 Range/Units Serum Glucose 97 74-106 mg/dL Problem List/Assessment/Plan Problem List/Assessment/Plan 04/12/25 she feels better but developed significant leukocytosis with a left shift, wounds clean and well approximated, abdomen non distended appropriately tender, will advance diet and ambulation, if WBC normalized will discharge tomorrow 04/13/25 FEELS WELL, NO NAUSEA, NO PAIN, WBC NORMALIZED, WOUNDS CLEAN AND WELL APPROXIMATED, she is cleared for discharge, TO RETURN TO SEE ME IN TWO WEEKS, DECEMBER SHOWER ON Tuesday. Plan discussed with: Patient Dietary Evaluation Review Comments: Low fat diet for Gallbaldder issues Expected Outcomes/Goals: maintain usual wt LD MALDONADO MD Apr 13, 2025 10:50
[2025-04-13 13:00] VITALS: BP 96/67; PULSE 66; RESP 18; TEMP 97.9; O2SAT 100
== END 2025-04-13 15:20 | disposition home or self-care (01) | DRG 263 ==
LOC: ER 09:13 → OVERFLOW 12:02 → CENTRAL 04-09 16:08
PROVIDERS: ADMIT Family Medicine; ATTEND Family Medicine
PROC: 0FT44ZZ Resection of Gallbladder, Percutaneous Endoscopic Approach (ICD-10-PCS; principal; 2025-04-11 09:00)
DX: K80.12 Calculus of gallbladder with acute and chronic cholecystitis without obstruction (principal); K76.0 Fatty (change of) liver, not elsewhere classified; E86.0 Dehydration; F32.A Depression, unspecified; F41.9 Anxiety disorder, unspecified; F17.210 Nicotine dependence, cigarettes, uncomplicated
CPT/HCPCS: 36415; 71045; 76705; 78226; 80053; 81001; 81025; 82247; 83690; 85025; 85610; 85730; 86850; 86900; 86901; G0378; J0330; J2250; J2405; J2470; J2543; J2704; J3490; Q0162

== ENCOUNTER 2025-04-29 20:44 | Inpatient (IN) | payer MEDICAID ==
[~2025-04-29] VITALS: Ht 154.9 cm; Wt 60.7 kg
[2025-04-29] MEDS: MORPHINE SULFATE 4 MG/ML SYR/VIAL IV ONE (01:46)
[~2025-04-29 20:44] MED LIST changes: -AUG875T PO; +HYDR-4902 PO; -IBU600T PO; +LEVO500T91 PO; +METR-344 PO
--- NOTE | 2025-04-29 21:24 | ED.PDOC ---
History of Present Illness HPI Comments 30 y/o F presents with relatives for c/c of mid back pain, with radiation to bilateral legs. Patient endorses on 2x day history of pain, which she describes as sharp in quality. Patient reports atraumatic and unprovoked onset of pain. Notable recent cholecystectomy 2.5x weeks ago by Dr. Aniceto Webb at [facility]. Denial of any weakness, numbness, tingling, or further associated symptoms. Chief Complaint: Back Pain Time Seen by MD: 21:20 Reviewed Notes: Nurses Notes, Medications, Allergies Allergies: Coded Allergies: NO KNOWN ALLERGIES (Unverified , 11/03/24) Home Meds Active Scripts Hydrocodone-Acetaminophen (Hydrocodone Bitartrate/AC 5-325 mg) 1 Tab Tab, 1 TAB PO QID PRN, #30 TAB Prov:CHRIS INGRAM MD 04/13/25 Levofloxacin Hemihydrate (LEVAQUIN 500 MG) 500 Mg Tab, 1 TAB PO DAILY, #10 TAB Prov:CHRIS INGRAM MD 04/13/25 Metronidazole (Flagyl) 500 Mg Tab, 1 TAB PO TID, #30 TAB Prov:CHRIS INGRAM MD 04/13/25 Reported Medications Magnesium Oxide (MAGNESIUM OXIDE) 400 Mg Tab, 1 TAB PO, #30 TAB 5 Refills 11/03/24 Melatonin (KP MELATONIN) 3 Mg Tab, 5 MG PO, TAB 11/03/24 Escitalopram Oxalate (Lexapro) 10 Mg Tab, 1 TAB PO DAILY, #90 TAB 3 Refills 11/03/24 Information Source: Patient Mode of Arrival: Ambulatory Severity: Moderate Timing: Hours Duration: Since onset Prehospital treatment: None Past Medical History PAST MEDICAL HISTORY: Denies Surgical History: Denies all surgeries [employer]INE[employer]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 Family History Family History: Reviewed,noncontributory to illness Social History Smoker: Other Alcohol: Occasionally Drugs: Denies Drug Use Lives In: Home All Other Systems: Reviewed and Negative (Comprehensive systems review obtained and negative except for what is stated in the HPI.) Physical Exam General Appearance: No Apparent Distress, Normal HEENT: Normal ENT Inspection, Pharynx Normal, TMs Normal Neck: Full Range of Motion, Non-Tender, Normal, Normal Inspection Respiratory: Chest Non-Tender, Lungs Clear, No Accessory Muscle Use, No Respiratory Distress, Normal Breath Sounds Cardiovascular: No Edema, No JVD, No Murmur, No Gallop, Normal Peripheral Pulses, Regular Rate/Rhythm Breast Exam: Deferred Gastrointestinal: No Organomegaly, Non Tender, No Pulsatile Mass, Normal Bowel Sounds, Soft Genitalia: Deferred Pelvic: Deferred Rectal: Deferred Extremities: No calf tenderness, Normal capillary refill, Normal inspection, Normal range of motion, Non-tender, No pedal edema Musculoskeletal : Extremity Location: Back (mid back ) Apperance: Normal, Tenderness Neurologic: Alert, reliner II-XII nml as Tested, No Motor Deficits, Normal Affect, Normal Mood, No Sensory Deficits Cerebellar Function: Normal Reflexes: Normal Skin: Dry, Normal Color, Warm Lymphatic: No Adenopathy Was a procedure done? Was a procedure done?: No Differential Dx Considerations may include: sciatica, DDD, DJD, musculoskeletal pain, post-op complication, radiculopathy, among others X-Ray, Labs, Meds, VS Vital Signs Date Time Temp Pulse Resp B/P (MAP) Pulse Ox O2 Delivery O2 Flow Rate FiO2 04/29/25 20:48 97.9 89 20 117/77 95 97.9 Lab Test 04/29/25 21:13 Range/Units White Blood Count 9.7 4.4-10.8 10^3/uL Red Blood Count 4.50 4.0-5.20 10^6/uL Hemoglobin 14.0 12.2-16.2 g/dL Hematocrit 40.2 36.0-46.0 % Mean Corpuscular Volume 89.3 80.0-100.0 fL Mean Corpuscular Hemoglobin 31.1 28.0-32.0 pg Mean Corpuscular Hemoglobin Concent 34.8 32.0-36.0 g/dL Red Cell Distribution Width 13.4 11.8-14.3 % Platelet Count 334 140-450 10^3/uL Mean Platelet Volume 8.5 6.9-10.8 fL Neutrophils (%) (Auto) 66.9 37.0-80.0 % Lymphocytes (%) (Auto) 24.5 10.0-50.0 % Monocytes (%) (Auto) 6.5 0.0-12.0 % Eosinophils (%) (Auto) 1.5 0.0-7.0 % Basophils (%) (Auto) 0.6 0.0-2.0 % Neutrophils # (Auto) 6.5 1.6-8.6 10 ^3/uL Lymphocytes # (Auto) 2.4 0.4-5.4 10 ^3/uL Monocytes # (Auto) 0.6 0-1.3 10 ^3/uL Eosinophils # (Auto) 0.1 0-0.8 10 ^3/uL Basophils # (Auto) 0.1 0-0.2 10 ^3/uL Nucleated Red Blood Cells 0.0 % Sodium Level 137 136-145 mmol/L Potassium Level 3.7 3.5-5.1 mmol/L Chloride Level 105 98-107 mmol/L Carbon Dioxide Level 21 20-31 mmol/L Anion Gap 11 5-15 Blood Urea Nitrogen 9 9-23 mg/dL Creatinine 0.71 0.550-1.02 mg/dL Glomerular Filtration Rate Calc 117 >90 mL/min BUN/Creatinine Ratio 12.7 10.0-20.0 Serum Glucose 119 H 74-106 mg/dL Calcium Level 9.2 8.7-10.4 mg/dL Total Bilirubin 0.4 0.2-1.0 mg/dL Aspartate Amino Transferase (AST) 57 H 13-40 U/L Alanine Aminotransferase (ALT) 30 7-40 U/L Alkaline Phosphatase 88 46-116 U/L Total Protein 7.4 5.7-8.2 g/dL Albumin 4.5 3.2-4.8 g/dL Lipase 40 12-53 U/L Time of 1ST Reevaluation: 21:50 Reevaluation 1ST: Unchanged Patient Education/Counseling: Diagnosis, Treatment Family Education/Counseling: Diagnosis, Treatment SEPSIS Sepsis Screen Date sepsis recognized/suspect: Apr 29, 2025 Time Sepsis recognized/suspect: 2054 Recent Procedure: Yes On Antibiotic Therapy: Yes Respiratory Rate >20: No Heart Rate >90: No Temp<36 C (96.8 F) or >38.3 C: No SBP <90 or MAP <65 mmHG: No New Acute Mental Status Change: No Is the patient on CPAP, BIPAP,: No Physician Orders Urinalysis (04/29/25 21:06) Ct Ab Pel With Iv Con Only (04/29/25 21:19) Polyethylene Glycol 17g Powder (Miralax (04/30/25 00:15) Vital Signs Date Time Temp Pulse Resp B/P (MAP) Pulse Ox O2 Delivery O2 Flow Rate FiO2 04/29/25 20:48 97.9 89 20 117/77 95 97.9 Laboratory Tests Test 04/29/25 21:13 White Blood Count 9.7 10^3/uL (4.4-10.8) Departure 1 Departure Time of Disposition: 00:03 (Patient presented with abdominal pain that was concerning for possible appendicits, gastritis, cholecystitis, colitis, gastroenteritis, sbo, or orther possible surgical emergency. Data: 1. I ordered and reviewed the result of at least 3 labs including a CBC, BMP, and Urinalysis. 2. I independently interpreted the following tests: CT Abdoment and Pelvis is concerning for constipation .Risk:This patient has a high risk of morbidity due to further diagnostic testing or treatment and may suffer from an acute abdominal process disorder. Workup reveals intractable abdominal pain and constipation and patient should be admitted for further workup. and possible expert consultation. ) Impression: Primary Impression: Intractable abdominal pain Additional Impression: Constipation Qualified Codes: K59.00 - Constipation, unspecified Disposition: ADMITTED INPATIENT Admit to: Med Surg Condition: Serious Critical Care Note Critical Care Time?: Yes Critical care comment: Intractable abdominal pain Authorized and Performed by: Edmond Jeffrey MD Total critical care time: Approximately 42 minutes Due to a high probability of clinically significant, life threatening deterioration, the patient required my highest level of preparedness to intervene emergently and I personally spent this critical care time directly and personally managing the patient. This critical care time included obtaining a history; examining the patient; pulse oximetry; ordering and review of studies; arranging urgent treatment with development of a management plan; evaluation of patient's response to treatment; frequent reassessment; and, discussions with other providers. This critical care time was performed to assess and manage the high probability of imminent, life-threatening deterioration that could result in multi-organ failure. It was exclusive of separately billable procedures and treating other patients and teaching time. Please see my other sections and the rest of the note for further information on patient assessment and treatment. Stability Stability form required: No Heart Score Heart Score: Heart Score Response (Comments) Value History N/A 0 EKG N/A 0 Age N/A 0 Risk Factors N/A 0 Troponin N/A 0 Total 0 I personally scribed for EDMOND JEFFREY MD ([email or web address]) on 04/29/25 at 21:24. Electronically submitted by Zack Wilburn ([email or web address]). I personally scribed for EDMOND JEFFREY MD ([email or web address]) on 04/29/25 at 21:30. Electronically submitted by Zack Wilburn ([email or web address]). EDMOND JEFFREY MD Apr 29, 2025 21:24
[2025-04-29] MEDS: ONDANSETRON HCL 4 MG/2 ML VIAL IV ONE (21:30)
[2025-04-29] MEDS: SODIUM CHLORIDE 0.9% 1,000 ML IV ONE (21:30)
[2025-04-29 21:35] LABS: Hematocrit 40.2 % (36.0-46.0); Hemoglobin 14.0 g/dL (12.2-16.2); Mean Corpuscular Hemoglobin 31.1 pg (28.0-32.0); Mean Corpuscular Volume 89.3 fL (80.0-100.0); Nucleated Red Blood Cells % 0.0 %
[2025-04-29] MEDS: IOHEXOL 300 MG/ML 100ML BOTTLE IJ ONE (21:38)
[2025-04-29] MEDS: BARIUM SULFATE 98% 340 GM PWDR ONE (21:38)
[2025-04-29 21:47] LABS: Alanine Aminotransferase 30 U/L (7-40); Albumin 4.5 g/dL (3.2-4.8); Alkaline Phosphatase 88 U/L (46-116); Anion Gap 11 (5-15); BUN/Creatinine Ratio 12.7 (10.0-20.0); Bilirubin, Total 0.4 mg/dL (0.2-1.0); Calcium 9.2 mg/dL (8.7-10.4); Carbon Dioxide 21 mmol/L (20-31); Chloride 105 mmol/L (98-107); Lipase 40 U/L (12-53); Potassium 3.7 mmol/L (3.5-5.1); Sodium 137 mmol/L (136-145); Total Protein 7.4 g/dL (5.7-8.2)
[2025-04-29 21:52] LABS: Blood Urea Nitrogen 9 mg/dL (9-23); Glucose 119 mg/dL (74-106)
--- NOTE | 2025-04-29 22:23 | DVH ---
Exam: CT CT AB PEL WITH IV CON ONLY History: abdominal pain, recent gallbladder surgery Comparison Study: None Contrast: Type of contrast: Omnipaque 300 Contrast injected: 100 mL Contrast wasted: 0 TECHNIQUE: A digital vp emerging media image was obtained. During the uneventful, intravenous administration of c ontrast material, multislice data acquisition was obtained through the abdomen and pelvis. The data s et was subsequently reconstructed into axial images. Images were reviewed on a work station using a c ombination of axial and multiplanar using a variety of window levels and settings. Radiation Dose Information: CT Dose: CTDI volume is 6.05 mGy. Dose-length product is 326.73 mGy*cm FINDINGS: Lung Bases: No acute or significant lung base finding. Normal heart size. No pleural or pericardial effusion. Liver: The liver is normal in size. No focal lesions. Normal hepatic vascular enhancement. Gallbladder and Biliary Tree: Gallbladder has been surgically removed. Spleen: Unremarkable Pancreas: The pancreas is normal in appearance without focal lesions or abnormal enhancement. Adrenal Glands: Unremarkable Kidneys: Kidneys demonstrate normal symmetric enhancement without focal lesions, calculi or hydroneph rosis. Bladder: Unremarkable Bowel: The stomach is grossly normal in appearance. Small bowel and colon are normal in caliber and d istribution. The appendix is not visualized; however, no secondary findings of acute appendicitis rosangela ntified. Ascites: Absent Lymphadenopathy: No mesenteric, retroperitoneal or periportal lymphadenopathy. Abdominal Wall and Mesentery: Unremarkable. Vasculature: The visualized abdominal aorta is normal in size and caliber. Abdominal and pelvic vess els demonstrate normal enhancement. Pelvic Organs: Fluid in the cul-de-sac. Musculoskeletal: No aggressive focal bony lesions, acute fractures or dislocation. Soft tissues: Unremarkable. IMPRESSION: 1. No findings of bowel obstruction. There is a large stool burden throughout the colon. 2. Gallbladder has been surgically removed. There is no fluid in the gallbladder fossa. There is no d ilated intrahepatic ducts. 3. All CT scans at this medical facility are performed using dose modulation techniques as appropriat e to a performed exam including the following: Automated exposure control was utilized; adjustment of the MA and/or KV according to patient size; and use of iterative reconstruction technique.
[2025-04-30] MEDS: POLYETHYLENE GLYCOL 17 GM PWDR PO ONE (00:15)
[2025-04-30] MEDS ORDERED: DOCUSATE SOD 100 MG CAP PO PRN (02:45)
[2025-04-30] MEDS ORDERED: ONDANSETRON HCL 4 MG/2 ML VIAL IV PRN (02:45)
[2025-04-30 04:04] LABS: Hematocrit 36.1 % (36.0-46.0); Hemoglobin 12.6 g/dL (12.2-16.2); Mean Corpuscular Hemoglobin 31.6 pg (28.0-32.0); Mean Corpuscular Volume 90.6 fL (80.0-100.0); Nucleated Red Blood Cells % 0.2 %
[2025-04-30 04:18] LABS: Alanine Aminotransferase 29 U/L (7-40); Albumin 4.2 g/dL (3.2-4.8); Alkaline Phosphatase 81 U/L (46-116); Anion Gap 11 (5-15); BUN/Creatinine Ratio 11.3 (10.0-20.0); Bilirubin, Total 0.4 mg/dL (0.2-1.0); Carbon Dioxide 22 mmol/L (20-31); Chloride 106 mmol/L (98-107); Glucose 93 mg/dL (74-106); Potassium 3.8 mmol/L (3.5-5.1); Sodium 139 mmol/L (136-145); Total Protein 6.8 g/dL (5.7-8.2)
[2025-04-30 04:31] LABS: Blood Urea Nitrogen 7 mg/dL (9-23); Calcium 8.4 mg/dL (8.7-10.4)
--- NOTE | 2025-04-30 05:34 | DVHHPRES ---
History of Present Illness Resident Creating Document: NIDIA ANGULO RESIDENT History of Present Illness 30-year-old female with past history of depression, stopped escitalopram 6 months ago and cholecystectomy 3 weeks back presented with complaints of back pain since 2 days. She states she woke up from sleep and was not able to stand up by herself because of the pain in her back. She describes the pain as 10 on 10 in intensity, sharp and radiating to her ribs. There is no associated weakness. Patient states she has been having depressive episodes in the past few months. Family history: History of SLE in mother Social history: Occasional alcohol intake, vaping since 3 years, marijuana, cocaine, ecstasy use Home medication: None Allergic history: Patient denies Review of Systems Review of Systems General: patient denies fever, fatigue, weaknes, sweating, any recent changes in appetite and weight HEENT: No headaches, visiual changes, hearing loss, tinnitus, nasal congestion and discharge, and sore throat. Cardiovascular: Denies chest pain, palpitations, dyspnea on exertion, orthopnea, or claudication. Respiratory: No cough, and wheezing. Gastrointestinal: Denies nausea, vomiting, dysphagia, odynophagia, heartburn, abdominal pain, flatulence, bloating, diarrhea, constipation, change in stool, or blood in stool. Genitourinary: No dysuria, hematuria, discharge, frequency, urgency, nocturia, incontinence, and urinary retention. Endocrine: No heat or cold intolerance, polydipsia, polyuria, and polyphagia. Neurological: No dizziness, extremity weakness and numbness, tremors, gait disturbance, seizures, and memory impairment. Psychiatric: Denies depression, anxiety,or insomnia. Musculoskeletal: Complains of back pain and inability to walk Skin: No rashes, itching, skin lesion, changes in hair, nail, skin texture and breast. Hematologic/Lymphatic: Denies easy bruising, bleeding tendencies, or lymph node enlargement. Allergies: Coded Allergies: NO KNOWN ALLERGIES (Unverified , 11/03/24) Medications Current Medications Medications Dose Ordered Sig/Uma Route Start Time Stop Time Status Last Admin Dose Admin Acetaminophen 325 mg Q4HP PRN PO 04/30/25 02:45 Ondansetron HCl 4 mg Q4HP PRN IV 04/30/25 02:45 Docusate Sodium 100 mg BIDPRN PRN PO 04/30/25 02:45 Exam Vital Signs Vital Signs Date Time Temp Pulse Resp B/P (MAP) Pulse Ox O2 Delivery O2 Flow Rate FiO2 04/29/25 20:48 97.9 89 20 117/77 95 97.9 Exam General Appearance: Alert, Oriented X3, Cooperative, No acute distress HEENT: Atraumatic, PERRLA, EOMI, Mucous membrane moist/pink Respiratory: Clear to auscultation, Normal air movement Cardiovascular: Regular rate, Normal S1, Normal S2, No murmurs, no chest wall tenderness Abdominal: Normal bowel sounds, Soft, No tenderness, No hepatospenomegaly, No masses Extremities: No clubbing, No cyanosis, No edema, Normal pulses, No tenderness/swelling Skin: No rashes, No breakdown, No significant lesion Neuro: Tenderness in the lumbar spine and the paraspinal area, Strength at 5/5 X4 ext, Normal tone, Sensation intact, Cranial nerves 3-12 NL Psych/Mental Status: Mental status NL, Mood NL Labs/Xrays Labs Test 04/30/25 03:49 04/29/25 21:13 Range/Units White Blood Count 9.3 4.4-10.8 10^3/uL Red Blood Count 3.99 L 4.0-5.20 10^6/uL Hemoglobin 12.6 12.2-16.2 g/dL Hematocrit 36.1 # 36.0-46.0 % Mean Corpuscular Volume 90.6 80.0-100.0 fL Mean Corpuscular Hemoglobin 31.6 28.0-32.0 pg Mean Corpuscular Hemoglobin Concent 34.9 32.0-36.0 g/dL Red Cell Distribution Width 13.4 11.8-14.3 % Platelet Count 280 140-450 10^3/uL Mean Platelet Volume 8.3 6.9-10.8 fL Neutrophils (%) (Auto) 61.3 37.0-80.0 % Lymphocytes (%) (Auto) 29.1 10.0-50.0 % Monocytes (%) (Auto) 8.0 0.0-12.0 % Eosinophils (%) (Auto) 1.3 0.0-7.0 % Basophils (%) (Auto) 0.3 0.0-2.0 % Neutrophils # (Auto) 5.7 1.6-8.6 10 ^3/uL Lymphocytes # (Auto) 2.7 0.4-5.4 10 ^3/uL Monocytes # (Auto) 0.7 0-1.3 10 ^3/uL Eosinophils # (Auto) 0.1 0-0.8 10 ^3/uL Basophils # (Auto) 0 0-0.2 10 ^3/uL Nucleated Red Blood Cells 0.2 % Sodium Level 139 136-145 mmol/L Potassium Level 3.8 3.5-5.1 mmol/L Chloride Level 106 98-107 mmol/L Carbon Dioxide Level 22 20-31 mmol/L Anion Gap 11 5-15 Blood Urea Nitrogen 7 L 9-23 mg/dL Creatinine 0.62 0.550-1.02 mg/dL Glomerular Filtration Rate Calc 123 >90 mL/min BUN/Creatinine Ratio 11.3 10.0-20.0 Serum Glucose 93 74-106 mg/dL Calcium Level 8.4 L 8.7-10.4 mg/dL Total Bilirubin 0.4 0.2-1.0 mg/dL Aspartate Amino Transferase (AST) 57 H 13-40 U/L Alanine Aminotransferase (ALT) 29 7-40 U/L Alkaline Phosphatase 81 46-116 U/L Total Protein 6.8 5.7-8.2 g/dL Albumin 4.2 3.2-4.8 g/dL Lipase 40 12-53 U/L SEPSIS Sepsis Screen Date sepsis recognized/suspect: Apr 29, 2025 Time Sepsis recognized/suspect: 2054 Recent Procedure: Yes On Antibiotic Therapy: Yes Respiratory Rate >20: No Heart Rate >90: No Temp<36 C (96.8 F) or >38.3 C: No SBP <90 or MAP <65 mmHG: No New Acute Mental Status Change: No Is the patient on CPAP, BIPAP,: No Physician Orders Ct Ab Pel With Iv Con Only (04/29/25 21:19) * Surgical Consult (04/30/25 ) Admit (04/30/25 02:44) Allergies (04/30/25 02:44) Code Status (04/30/25 02:44) Acetaminophen Tablet (Tylenol Tablet) (04/30/25 02:45) Ondansetron Hcl (Zofran) (04/30/25 02:45) Docusate Sodium Capsule (Colace Capsule) (04/30/25 02:45) Condition: Fair (04/30/25 02:44) Beta Hcg, Quantitative (04/30/25 04:47) Drug Screen (04/30/25 04:47) Urinalysis (04/30/25 04:47) Thyroid Stimulating Hormone (04/30/25 04:47) Blood Alcohol (04/30/25 04:47) Regular Diet (04/30/25 Breakfast) Lumbar Spine Wo Contrast (04/30/25 05:05) Laboratory Tests Test 04/29/25 21:13 04/30/25 03:49 White Blood Count 9.7 10^3/uL (4.4-10.8) 9.3 10^3/uL (4.4-10.8) Medications Medications Dose Ordered Sig/Uma Route Start Time Stop Time Status Last Admin Dose Admin Morphine Sulfate 4 mg ONCE ONCE IV 04/29/25 21:30 04/29/25 21:33 DC 04/29/25 01:46 4 MG Ondansetron HCl 4 mg ONCE ONCE IV 04/29/25 21:30 04/29/25 21:33 DC 04/29/25 21:30 4 MG Sodium Chloride 1,000 ml @ 1,000 mls/hr Q1H ONCE IV 04/29/25 21:30 04/29/25 22:29 DC 04/29/25 21:30 1,000 MLS/HR Assessment/Plan Assessment/Plan #Possible lumbosacral radiculopathy-MRI lumbar spine #History of cholecystectomy-normal postsurgical changes in the CT #History of polysubstance abuse-UDS, blood alcohol #History of depression-evaluate for psychiatry consult, medication nonadherence #Mild hypocalcemia-follow calcium levels #Mild transaminitis-follow liver function PCP: Does not have one. Barriers to discharge: Medical management in progress. Case discussed with Dr. Mora Code status: Full code. Complex patient care discussion needed total 35 minutes Plan discussed with: Patient My Orders Orders - NIDIA ANGULO RESIDENT Procedure Category Date Status Time Admit ADMIT 04/30/25 Transmitted 02:44 Allergies VIJAYA 04/30/25 In Process 02:44 Code Status CODE 04/30/25 Transmitted 02:44 Acetaminophen Tablet PHA 04/30/25 In Process (Tylenol Tablet) 02:45 Ondansetron Hcl PHA 04/30/25 In Process (Zofran) 02:45 Docusate Sodium PHA 04/30/25 In Process Capsule (Colace 02:45 Condition: Fair VIJAYA 04/30/25 In Process 02:44 Beta Hcg, Quantitative LAB 04/30/25 In Process 04:47 Drug Screen LAB 04/30/25 Logged 04:47 Urinalysis LAB 04/30/25 Logged 04:47 Thyroid Stimulating LAB 04/30/25 In Process Hormone 04:47 Blood Alcohol LAB 04/30/25 In Process 04:47 Regular Diet DIET 04/30/25 Transmitted Breakfast Lumbar Spine Wo MRI 04/30/25 Logged Contrast 05:05 Date of Service: Apr 30, 2025 Billing Provider: JASE MORA MD Common Visit Codes: [id number] INP/OBS CARE (HIGH) Secondary Visit Codes: [id number] CARE PLAN 30 MINUTES NIDIA ANGULO RESIDENT Apr 30, 2025 05:19
[2025-04-30] MEDS: LACTATED RINGER'S 1,000 ML IV SCH (05:45)
[2025-04-30 06:09] LABS: Thyroid Stimulating Hormone 3.25 uIU/mL (0.55-4.78)
[2025-04-30 06:13] LABS: Beta HCG, Quantitative 0.6 mIU/mL (1.5-4.2)
[2025-04-30] MEDS: BACLOFEN 10 MG TAB PO ONE ×2 (10:45→17:11)
[2025-04-30] MEDS: BACLOFEN 10 MG TAB PO SCH (11:55)
[2025-04-30] MEDS: ACETAMINOPHEN 325 MG TAB PO PRN (11:56)
[2025-04-30] MEDS ORDERED: BACLOFEN 10 MG TAB PO SCH (14:00)
--- NOTE | 2025-04-30 15:12 | DVHPNRES ---
Progress Note Date Seen: Apr 30, 2025 Resident Creating Document: JOHN CAMPBELL RESIDENT Has the PT tested + for MRSA If YES, has PT been informed?: No Medical Necessity Reason Pt with a Central, PICC or Fol: No Subjective Review of Systems This is a 30-year-old female who presented to the ED the complained of intense back pain. The patient mentions that while trying to get out of bed in the morning 3 days ago, she was unable to bear weight on her legs had intense back pain his family had to help her get out of bed. Back pain has continued since then she is unable to stand up by herself. She describes the pain as a 10/10 in intensity, sharp and radiating from the middle of the spine upwards and downwards. Patient states the pain and tenderness is more on sides than in the center of her back. She did not have any urinary or bowel incontinence. Past medical history: History of depression for which she was on escitalopram which was stopped 6 months back Past surgical history: Cholecystectomy 3 weeks back Social & Personal history: Lives at home with family Smoking: History of vaping for 3 years, stopped a couple of months back Alcohol: Occasional intake Drugs: History of recreational drug use, marijuana, cocaine Allergies: No known allergies Patient seen and examined at bedside. Patient is alert and oriented to time, place person and responding to all questions. The patient is in distress due to back pain and says she can not move. Eyes: No Pain, No Vision change, No Conjunctivae inflammation, No Eyelid inflammation, No Redness ENT: No Ear pain, No Ear discharge, No Nose pain, No Nose discharge, No Nose congestion, No Mouth pain, No Mouth swelling, No Throat pain, No Throat swelling Cardiovascular: No Chest Pain, No Palpitations, No Orthopnea, No Paroxysmal No Dyspnea, No Edema, No Lt Headedness Respiratory: No Cough, No Dry, No Shortness of breath, No SOB with exertion, No Wheezing, No Hemoptysis, No Pleuritic Pain, No Sputum Gastrointestinal: No Nausea, No Vomiting, No Abdominal Pain, No Diarrhea, No Constipation, No Melena, No Hematochezia Genitourinary: No Dysuria, No Frequency, No Incontinence, No Hematuria, No Retention Objective vital signs Vital Sign Date Time Temp Pulse Resp B/P (MAP) Pulse Ox O2 Delivery O2 Flow Rate FiO2 04/30/25 12:56 98.4 04/30/25 11:52 49 16 106/68 (81) 98 04/30/25 08:31 Room Air* 0 21 medications Current Medications Medications Dose Ordered Sig/Uma Route Start Time Stop Time Status Last Admin Dose Admin Acetaminophen 325 mg Q4HP PRN PO 04/30/25 02:45 04/30/25 11:56 325 MG Ondansetron HCl 4 mg Q4HP PRN IV 04/30/25 02:45 Docusate Sodium 100 mg BIDPRN PRN PO 04/30/25 02:45 Lactated Ringer's 1,000 ml @ 100 mls/hr Q10H IV 04/30/25 05:45 Cyclobenzaprine HCl 5 mg HS PO 04/30/25 22:00 Baclofen 10 mg BID PO 04/30/25 11:30 04/30/25 11:55 10 MG Examination General Appearance: Cooperative. Well developed. Well nourished. NAD Head Exam: Normal inspection Neck Exam: Normal inspection. Non-tender. Normal alignment Pulmonary/Respiratory: Chest non-tender. Clear bilateral breath sounds, no crackles, no wheezing. Cardiovascular/Chest: Regular rate and rhythm. No murmurs. No JVD. Peripheral Pulses: 2+ Radial (R). 2+ Radial (L). 2+ Pedal (R). 2+ Pedal (L) Abdominal Exam: Normal bowel sounds. Soft. normal abdomen, no visible veins, Nontender. No hepatospenomegaly. No masses Ankle Exam: Negative ankle edema Lower extremities: Negative lower extremity edema Neuro/Mental Status: Severe Tenderness in the lumbar paraspinal area, tenderness in the spinal area, strength and tone of all 4 extremities 5 /5 , normal tone, sensation intact, A&O x4. Coherent. Thoughts/Psych: Normal thought pattern. Appropriate mood and affect. Good judgement and insight Skin Exam: Normal inspection. Normal color. Warm. Dry laboratory and microbiology Laboratory Tests 04/30/25 03:49 Test 04/30/25 03:49 Range/Units Serum Glucose 93 74-106 mg/dL Labs and/or images reviewed: Labs reviewed by me, Image(s) reviewed by me Problem List/Assessment/Plan Problem List/Assessment/Plan Severe paraspinal muscular spasm rule out lumbar radiculopathy MRI lumbar spine ordered but unable to finish because of pain Conservative management Hot packs, pain management Baclofen and Flexeril 1 dose methylprednisolone History of depression without suicidal or homicidal ideation Patient follow-up with Psychiatry PUD prophylaxis: Not indicated DVT prophylaxis: Not indicated Goals of care: Full code, discussed for >16 minutes Plan discussed with patient Plan discussed with Dr. Araujo Plan discussed with: Patient My Orders My Orders Orders - JOHN CAMPBELL RESIDENT Procedure Category Date Status Time Cyclobenzaprine PHA 04/30/25 In Process Tablet (Flexeril 22:00 Urinalysis LAB 04/30/25 Logged 11:26 Hot Pack ED NURSING 04/30/25 Transmitted Date of Service: Apr 30, 2025 Billing Provider: ESTHER LIN MD Common Visit Codes: [id number] INP/OBS CARE(HIGH) JOHN CAMPBELL RESIDENT Apr 30, 2025 15:12 JOSE LUIS PRESSLEY RESIDENT Apr 30, 2025 19:32 ESTHER LIN MD May 06, 2025 00:03
[2025-04-30] MEDS: methylPREDNISolone SOD SUCC 40 MG/ML VL IV ONE (15:21)
--- NOTE | 2025-04-30 16:04 | DVH ---
PROCEDURE: MRI LUMBAR SPINE WO CONTRAST Indication: pain in the spine radiating down the legs COMPARISON: None TECHNIQUE: Multiplanar multisequence images of the the lumbar spine are obtained. FINDINGS: For the purpose of this examination, there are 5 lumbar vertebral body types counting from the lumbos acral junction. Lumbar vertebral body heights are maintained. Alignment maintained. Mild multilevel disc space narr owing and desiccation most pronounced at L5-S1. No abnormal marrow edema. Conus terminates at the le daniel of the T12-L1 disc space level. T12-L1: No spinal canal, neural foraminal stenosis. L1-2: No spinal canal, neural foraminal stenosis. L2-3: No spinal canal, neural foraminal stenosis. L3-4: No spinal canal, neural foraminal stenosis. L4-5: No spinal canal, neural foraminal stenosis. L5-S1: Small 2 mm disc protrusion. Mild facet hypertrophy. No spinal canal stenosis. No neural for aminal stenosis IMPRESSION: Mild lumbar degenerative disc disease. No significant spinal canal, neural foraminal stenosis.
[2025-04-30 21:55] LABS: Urine Protein, UAD Negative (Negative)
[2025-04-30 21:59] LABS: Opiate Scree,Urine Neg (NEGATIVE)
[2025-04-30 22:00] LABS: Cannabinoid Screen, Urine Pos (NEGATIVE)
[2025-04-30] MEDS: CYCLOBENZAPRINE HCL 10 MG TAB PO SCH (22:00)
[2025-04-30 22:01] LABS: Amphetamine Screen, Urine Neg (NEGATIVE); Barbiturate Scree,Urine Neg (NEGATIVE); Benzodiazephine Screen, Urine Neg (NEGATIVE); Cocaine Screen, Urine Neg (NEGATIVE); Phencyclidine Screen, Urine Neg (NEGATIVE)
[2025-04-30 23:38] VITALS: BP_SYST 96; BP_DIAS 60; BP_DIAS 64; PULSE 81; PULSE 89; RESP 14; RESP 16; TEMP 97.6; TEMP 98.1; O2SAT 96; O2SAT 97
[2025-05-01] VITALS (8 sets, daily range): BP systolic 96–121; BP diastolic 59–81; PULSE 55–88; RESP 15–18; TEMP 97.6–98.4; O2SAT 96–99
[2025-05-01] MEDS ORDERED: MET500T PO (00:16)
[2025-05-01 07:11] LABS: Anion Gap 9 (5-15); Carbon Dioxide 24 mmol/L (20-31); Potassium 4.0 mmol/L (3.5-5.1); Sodium 140 mmol/L (136-145)
[2025-05-01 07:12] LABS: Calcium 9.0 mg/dL (8.7-10.4)
[2025-05-01 07:14] LABS: Hematocrit 36.3 % (36.0-46.0); Hemoglobin 12.7 g/dL (12.2-16.2); Mean Corpuscular Hemoglobin 31.7 pg (28.0-32.0); Mean Corpuscular Volume 90.4 fL (80.0-100.0); Nucleated Red Blood Cells % 0.0 %
[2025-05-01 07:17] LABS: BUN/Creatinine Ratio 13.0 (10.0-20.0)
[2025-05-01 07:21] LABS: Chloride 107 mmol/L (98-107); Glucose 133 mg/dL (74-106)
[2025-05-01 07:22] LABS: Blood Urea Nitrogen 7 mg/dL (9-23)
--- NOTE | 2025-05-01 15:22 | DVHPNRES ---
Progress Note Date Seen: May 01, 2025 Resident Creating Document: JOHN CAMPBELL RESIDENT Has the PT tested + for MRSA If YES, has PT been informed?: No Medical Necessity Reason Pt with a Central, PICC or Fol: No Subjective Review of Systems This is a 30-year-old female who presented to the ED the complained of intense back pain. The patient mentions that while trying to get out of bed in the morning 3 days ago, she was unable to bear weight on her legs had intense back pain his family had to help her get out of bed. Back pain has continued since then she is unable to stand up by herself. She describes the pain as a 10/10 in intensity, sharp and radiating from the middle of the spine upwards and downwards. Patient states the pain and tenderness is more on sides than in the center of her back. She did not have any urinary or bowel incontinence. Past medical history: History of depression for which she was on escitalopram which was stopped 6 months back Past surgical history: Cholecystectomy 3 weeks back Social & Personal history: Lives at home with family Smoking: History of vaping for 3 years, stopped a couple of months back Alcohol: Occasional intake Drugs: History of recreational drug use, marijuana, cocaine Allergies: No known allergies Patient seen and examined at bedside. Patient is alert and oriented to time, place person and responding to all questions. The patient is in distress due to back pain and says she can not move. Eyes: No Pain, No Vision change, No Conjunctivae inflammation, No Eyelid inflammation, No Redness ENT: No Ear pain, No Ear discharge, No Nose pain, No Nose discharge, No Nose congestion, No Mouth pain, No Mouth swelling, No Throat pain, No Throat swelling Cardiovascular: No Chest Pain, No Palpitations, No Orthopnea, No Paroxysmal No Dyspnea, No Edema, No Lt Headedness Respiratory: No Cough, No Dry, No Shortness of breath, No SOB with exertion, No Wheezing, No Hemoptysis, No Pleuritic Pain, No Sputum Gastrointestinal: No Nausea, No Vomiting, No Abdominal Pain, No Diarrhea, No Constipation, No Melena, No Hematochezia Genitourinary: No Dysuria, No Frequency, No Incontinence, No Hematuria, No Retention 3- The patient was seen at bedside today. Patient mentions that her pain has reduced considerably since yesterday and she is able to move ambulate to the washroom. Urinalysis was positive for UTI, for which urine culture was ordered and patient was started on IV Rocephin. Objective vital signs Vital Sign Date Time Temp Pulse Resp B/P (MAP) Pulse Ox O2 Delivery O2 Flow Rate FiO2 05/01/25 13:00 97.8 61 17 111/72 (85) 97 97.8 04/30/25 23:38 Room Air* 0 21 Total Intake and Output 04/30/25 04/30/25 05/01/25 15:00 23:00 07:00 Intake Total 800 ml Balance 800 ml medications Current Medications Medications Dose Ordered Sig/Uma Route Start Time Stop Time Status Last Admin Dose Admin Acetaminophen 325 mg Q4HP PRN PO 04/30/25 02:45 04/30/25 11:56 325 MG Ondansetron HCl 4 mg Q4HP PRN IV 04/30/25 02:45 Docusate Sodium 100 mg BIDPRN PRN PO 04/30/25 02:45 Lactated Ringer's 1,000 ml @ 100 mls/hr Q10H IV 04/30/25 05:45 05/01/25 13:12 100 MLS/HR Cyclobenzaprine HCl 5 mg HS PO 04/30/25 22:00 Baclofen 10 mg BID PO 04/30/25 11:30 05/01/25 11:26 10 MG Ceftriaxone Sodium 50 ml @ 100 mls/hr DAILY@09 IV 05/02/25 09:00 Examination General Appearance: Cooperative. Well developed. Well nourished. NAD Head Exam: Normal inspection Neck Exam: Normal inspection. Non-tender. Normal alignment Pulmonary/Respiratory: Chest non-tender. Clear bilateral breath sounds, no crackles, no wheezing. Cardiovascular/Chest: Regular rate and rhythm. No murmurs. No JVD. Peripheral Pulses: 2+ Radial (R). 2+ Radial (L). 2+ Pedal (R). 2+ Pedal (L) Abdominal Exam: Normal bowel sounds. Soft. normal abdomen, no visible veins, Nontender. No hepatospenomegaly. No masses Ankle Exam: Negative ankle edema Lower extremities: Negative lower extremity edema Neuro/Mental Status: Tenderness in the lumbar paraspinal area, tenderness in the spinal area, strength and tone of all 4 extremities 5 /5 , normal tone, sensation intact, A&O x4. Coherent. Thoughts/Psych: Normal thought pattern. Appropriate mood and affect. Good judgement and insight Skin Exam: Normal inspection. Normal color. Warm. Dry laboratory and microbiology Laboratory Tests 05/01/25 06:37 Test 05/01/25 06:37 Range/Units Serum Glucose 133 H 74-106 mg/dL Labs and/or images reviewed: Labs reviewed by me, Image(s) reviewed by me Problem List/Assessment/Plan Problem List/Assessment/Plan Severe paraspinal muscular spasm rule out lumbar radiculopathy -MRI lumbar spine showed mild degenerative disease -Conservative management -Hot packs, pain management -Baclofen and Flexeril -1 dose methylprednisolone UTI Possible pyelonephritis -ordered urine culture -started IV Rocephin Rule out SIRS or sepsis -follow labs -check vitals History of depression without suicidal or homicidal ideation Patient follow-up with Psychiatry Cannabinoid use disorder Counseled regarding cessation for more than 17 minutes PUD prophylaxis: Not indicated DVT prophylaxis: Not indicated Goals of care: Full code, discussed for >16 minutes Plan discussed with patient Plan discussed with Dr. Araujo Plan discussed with: Patient My Orders My Orders Orders - JOHN CAMPBELL RESIDENT Procedure Category Date Status Time Urine Bacterial MICH 05/01/25 In Process Culture 10:08 Ceftriaxone 1gm/50ml PHA 05/02/25 In Process D5w (Rocephin) 09:00 Regular Diet DIET 05/01/25 Transmitted Dinner Date of Service: May 01, 2025 Billing Provider: ESTHER LIN MD Common Visit Codes: [id number] INP/OBS CARE(HIGH) JOHN CAMPBELL RESIDENT May 01, 2025 15:22 JOSE LUIS PRESSLEY RESIDENT May 02, 2025 08:00 ESTHER LIN MD May 06, 2025 00:36
[2025-05-01] MEDS: methylPREDNISolone SOD SUCC 40 MG/ML VL IV ONE (19:33)
[2025-05-01] MEDS ORDERED: CYCLOBENZAPRINE HCL 10 MG TAB PO PRN (23:00)
[2025-05-02 05:00] VITALS: BP 97/64; PULSE 58; RESP 16; TEMP 98.1; O2SAT 98
[2025-05-02 06:44] LABS: Hematocrit 35.8 % (36.0-46.0); Hemoglobin 12.5 g/dL (12.2-16.2); Mean Corpuscular Hemoglobin 31.4 pg (28.0-32.0); Mean Corpuscular Volume 90.0 fL (80.0-100.0); Nucleated Red Blood Cells % 0.0 %
[2025-05-02 06:54] LABS: Anion Gap 10 (5-15); Calcium 8.8 mg/dL (8.7-10.4); Carbon Dioxide 23 mmol/L (20-31); Potassium 3.9 mmol/L (3.5-5.1); Sodium 141 mmol/L (136-145)
[2025-05-02 06:58] LABS: Chloride 108 mmol/L (98-107)
[2025-05-02 07:00] LABS: BUN/Creatinine Ratio 13.3 (10.0-20.0)
[2025-05-02 07:01] LABS: Blood Urea Nitrogen 8 mg/dL (9-23); Glucose 131 mg/dL (74-106)
[2025-05-02 08:00] VITALS: PULSE 65; RESP 18; O2SAT 96
[2025-05-02 08:30] VITALS: BP 105/68; PULSE 54; RESP 17; TEMP 97.6; O2SAT 97
[2025-05-02] MEDS: MORPHINE SULFATE INJ 2 MG/ml SYRG IV PRN (08:48)
[2025-05-02] MEDS: methylPREDNISolone SOD SUCC 40 MG/ML VL IV SCH (08:48)
[2025-05-02] MEDS: LIDOCAINE 5% TOPICAL PATCH TOP SCH (10:00)
--- NOTE | 2025-05-02 12:31 | DVHDSRES ---
Discharge Summary Date of Admission Resident Creating Document: JOHN CAMPBELL RESIDENT Apr 30, 2025 at 02:44 Date of Discharge: May 02, 2025 Admitting Diagnosis Acute intractable abdominal pain Labs/Diagnostic Data: Laboratory Results Test 05/02/25 05:50 04/30/25 21:30 04/30/25 05:37 04/30/25 03:49 White Blood Count 14.9 10^3/uL (4.4-10.8) Red Blood Count 3.97 10^6/uL (4.0-5.20) Hemoglobin 12.5 g/dL (12.2-16.2) Hematocrit 35.8 % (36.0-46.0) Mean Corpuscular Volume 90.0 fL (80.0-100.0) Mean Corpuscular Hemoglobin 31.4 pg (28.0-32.0) Mean Corpuscular Hemoglobin Concent 34.9 g/dL (32.0-36.0) Red Cell Distribution Width 13.2 % (11.8-14.3) Platelet Count 277 10^3/uL (140-450) Mean Platelet Volume 8.9 fL (6.9-10.8) Neutrophils (%) (Auto) 89.2 % (37.0-80.0) Lymphocytes (%) (Auto) 8.7 % (10.0-50.0) Monocytes (%) (Auto) 2.0 % (0.0-12.0) Eosinophils (%) (Auto) 0.0 % (0.0-7.0) Basophils (%) (Auto) 0.1 % (0.0-2.0) Neutrophils # (Auto) 13.3 10 ^3/uL (1.6-8.6) Lymphocytes # (Auto) 1.3 10 ^3/uL (0.4-5.4) Monocytes # (Auto) 0.3 10 ^3/uL (0-1.3) Eosinophils # (Auto) 0 10 ^3/uL (0-0.8) Basophils # (Auto) 0 10 ^3/uL (0-0.2) Nucleated Red Blood Cells 0.0 % Sodium Level 141 mmol/L (136-145) Potassium Level 3.9 mmol/L (3.5-5.1) Chloride Level 108 mmol/L (98-107) Carbon Dioxide Level 23 mmol/L (20-31) Anion Gap 10 (5-15) Blood Urea Nitrogen 8 mg/dL (9-23) Creatinine 0.60 mg/dL (0.550-1.02) Glomerular Filtration Rate Calc 124 mL/min (>90) BUN/Creatinine Ratio 13.3 (10.0-20.0) Serum Glucose 131 mg/dL (74-106) Calcium Level 8.8 mg/dL (8.7-10.4) Urine Color Light-yellow (Yellow) Urine Clarity Clear (Clear) Urine pH 5.5 (5.0-9.0) Urine Specific [place] 1.011 (1.001-1.035) Urine Protein Negative (Negative) Urine Ketones 2+ (Negative) Urine Blood Negative /uL (Negative) Urine Nitrite Negative (Negative) Urine Bilirubin Negative (Negative) Urine Urobilinogen Normal mg/dL (Negative) Urine Leukocyte Esterase Negative /uL (Negative) Urine RBC 1 /hpf (0 - 4) Urine Microscopic WBC 1 /HPF (0-5) Urine Squamous Epithelial Cells Few /hpf (<5) Urine Bacteria Few /hpf (None Seen) Urine Glucose 3+ mg/dL (Normal) Urine Opiates Screen Neg (NEGATIVE) Urine Fentanyl Screen Neg (NEGATIVE) Urine Barbiturates Screen Neg (NEGATIVE) Urine Phencyclidine Screen Neg (NEGATIVE) Urine Amphetamines Screen Neg (NEGATIVE) Urine Benzodiazepines Screen Neg (NEGATIVE) Urine Cocaine Screen Neg (NEGATIVE) Urine Cannabinoids Screen Pos (NEGATIVE) Anti-Nuclear Antibody Screen Negative (Negative) Magnesium Level 1.9 mg/dL (1.6-2.6) Total Bilirubin 0.4 mg/dL (0.2-1.0) Aspartate Amino Transferase (AST) 57 U/L (13-40) Alanine Aminotransferase (ALT) 29 U/L (7-40) Alkaline Phosphatase 81 U/L (46-116) Total Protein 6.8 g/dL (5.7-8.2) Albumin 4.2 g/dL (3.2-4.8) Thyroid Stimulating Hormone (TSH) 3.25 uIU/mL (0.55-4.78) Beta HCG, Quantitative 0.6 mIU/mL (1.5-4.2) Plasma/Serum Blood Alcohol < 3.0 mg/dL (<10) Test 04/29/25 21:13 Lipase 40 U/L (12-53) Other Laboratory Tests 05/02/25 05:50 Brief Hx & Hospital Course: This is a 30-year-old female who presented to the ED the complained of intense back pain. The patient mentioned that while trying to get out of bed in the morning 3 days before admission, she was unable to bear weight on her legs had intense back pain his family had to help her get out of bed. Back pain had continued since then she is unable to stand up by herself. She described the pain as a 10/10 in intensity, sharp and radiating from the middle of the spine upwards and downwards. Patient stated the pain and tenderness is more on sides than in the center of her back. She did not have any urinary or bowel incontinence. During her hospital stay, her pain reduced considerably and she was able to move and ambulate to the washroom independently. Urinalysis was positive for UTI for which urine culture was ordered and she was started on IV Rocephin. Patient's vitals were stable today. Was discharged home on oral antibiotics and muscle relaxants. All medications and recommendation were explained to the patient and she demonstrated understanding of the same. All questions were answered and all concerns were addressed. Past medical history: History of depression for which she was on escitalopram which was stopped 6 months back Past surgical history: Cholecystectomy 3 weeks back Social & Personal history: Lives at home with family Smoking: History of vaping for 3 years, stopped a couple of months back Alcohol: Occasional intake Drugs: History of recreational drug use, marijuana, cocaine Allergies: No known allergies Patient seen and examined at bedside. Patient is alert and oriented to time, place person and responding to all questions. The patient is in distress due to back pain and says she can not move. Eyes: No Pain, No Vision change, No Conjunctivae inflammation, No Eyelid inflammation, No Redness ENT: No Ear pain, No Ear discharge, No Nose pain, No Nose discharge, No Nose congestion, No Mouth pain, No Mouth swelling, No Throat pain, No Throat swelling Cardiovascular: No Chest Pain, No Palpitations, No Orthopnea, No Paroxysmal No Dyspnea, No Edema, No Lt Headedness Respiratory: No Cough, No Dry, No Shortness of breath, No SOB with exertion, No Wheezing, No Hemoptysis, No Pleuritic Pain, No Sputum Gastrointestinal: No Nausea, No Vomiting, No Abdominal Pain, No Diarrhea, No Constipation, No Melena, No Hematochezia Genitourinary: No Dysuria, No Frequency, No Incontinence, No Hematuria, No Retention General Appearance: Cooperative. Well developed. Well nourished. NAD Head Exam: Normal inspection Neck Exam: Normal inspection. Non-tender. Normal alignment Pulmonary/Respiratory: Chest non-tender. Clear bilateral breath sounds, no crackles, no wheezing. Cardiovascular/Chest: Regular rate and rhythm. No murmurs. No JVD. Peripheral Pulses: 2+ Radial (R). 2+ Radial (L). 2+ Pedal (R). 2+ Pedal (L) Abdominal Exam: Normal bowel sounds. Soft. normal abdomen, no visible veins, Nontender. No hepatospenomegaly. No masses Ankle Exam: Negative ankle edema Lower extremities: Negative lower extremity edema Neuro/Mental Status: mild Tenderness in the lumbar paraspinal area, tenderness in the spinal area, strength and tone of all 4 extremities 5 /5 , normal tone, sensation intact, A&O x4. Coherent. Thoughts/Psych: Normal thought pattern. Appropriate mood and affect. Good judgement and insight Skin Exam: Normal inspection. Normal color. Warm. Dry Operations or Procedures 1.PROCEDURE(s): ABPLIV - CT AB PEL WITH IV CON ONLY REASON: abdominal pain, recent gallbladder surgery ORDER NUMBER(s): [id number], ACCESSION NUMBER(s): [id number] Exam: CT CT AB PEL WITH IV CON ONLY History: abdominal pain, recent gallbladder surgery Comparison Study: None Contrast: Type of contrast: Omnipaque 300 Contrast injected: 100 mL Contrast wasted: 0 TECHNIQUE: A digital lift driver image was obtained. During the uneventful, intravenous administration of contrast material, multislice data acquisition was obtained through the abdomen and pelvis. The data set was subsequently reconstructed into axial images. Images were reviewed on a work station using a combination of axial and multiplanar using a variety of window levels and settings. Radiation Dose Information: CT Dose: CTDI volume is 6.05 mGy. Dose-length product is 326.73 mGy*cm FINDINGS: Lung Bases: No acute or significant lung base finding. Normal heart size. No pleural or pericardial effusion. Liver: The liver is normal in size. No focal lesions. Normal hepatic vascular enhancement. Gallbladder and Biliary Tree: Gallbladder has been surgically removed. Spleen: Unremarkable Pancreas: The pancreas is normal in appearance without focal lesions or abnormal enhancement. Adrenal Glands: Unremarkable Kidneys: Kidneys demonstrate normal symmetric enhancement without focal lesions, calculi or hydronephrosis. Bladder: Unremarkable Bowel: The stomach is grossly normal in appearance. Small bowel and colon are normal in caliber and distribution. The appendix is not visualized; however, no secondary findings of acute appendicitis identified. Ascites: Absent Lymphadenopathy: No mesenteric, retroperitoneal or periportal lymphadenopathy. Abdominal Wall and Mesentery: Unremarkable. Vasculature: The visualized abdominal aorta is normal in size and caliber. Abdominal and pelvic vessels demonstrate normal enhancement. Pelvic Organs: Fluid in the cul-de-sac. Musculoskeletal: No aggressive focal bony lesions, acute fractures or dislocation. Soft tissues: Unremarkable. IMPRESSION: 1. No findings of bowel obstruction. There is a large stool burden throughout the colon. 2. Gallbladder has been surgically removed. There is no fluid in the gallbladder fossa. There is no dilated intrahepatic ducts. 3. All CT scans at this medical facility are performed using dose modulation techniques as appropriate to a performed exam including the following: Automated exposure control was utilized; adjustment of the MA and/or KV according to patient size; and use of iterative reconstruction technique. 2.PROCEDURE(s): MSL - LUMBAR SPINE WO CONTRAST REASON: pain in the spine radiating down the legs ORDER NUMBER(s): [id number], ACCESSION NUMBER(s): [id number] PROCEDURE: MRI LUMBAR SPINE WO CONTRAST Indication: pain in the spine radiating down the legs COMPARISON: None TECHNIQUE: Multiplanar multisequence images of the the lumbar spine are obtained. FINDINGS: For the purpose of this examination, there are 5 lumbar vertebral body types counting from the lumbosacral junction. Lumbar vertebral body heights are maintained. Alignment maintained. Mild multilevel disc space narrowing and desiccation most pronounced at L5-S1. No abnormal marrow edema. Conus terminates at the level of the T12-L1 disc space level. T12-L1: No spinal canal, neural foraminal stenosis. L1-2: No spinal canal, neural foraminal stenosis. L2-3: No spinal canal, neural foraminal stenosis. L3-4: No spinal canal, neural foraminal stenosis. L4-5: No spinal canal, neural foraminal stenosis. L5-S1: Small 2 mm disc protrusion. Mild facet hypertrophy. No spinal canal stenosis. No neural foraminal stenosis IMPRESSION: Mild lumbar degenerative disc disease. No significant spinal canal, neural foraminal stenosis. Condition at Discharge: Stable Final Diagnosis/Problems List Severe paraspinal muscular spasm UTI History of depression without suicidal or homicidal ideation Cannabinoid use disorder Discharge Disposition: Home Discharge Instruct/Medications Diet: Regular Activity: No Restrictions, As Tolerated Follow Up/Referral: Follow-up in discharge clinic Follow-up with PCP Scheduled Baclofen (Baclofen), 10 MG PO BID Cephalexin (Keflex Capsule), 500 MG PO BID Cyclobenzaprine HCl (Cyclobenzaprine Hydrochlo), 10 MG PO HS Escitalopram Oxalate (Lexapro), 1 TAB PO DAILY, (Reported) Metronidazole (Metronidazole), 1 TAB PO TID, (Reported) Scheduled PRN Hydrocodone-Acetaminophen (Hydrocodone Bitartrate/AC 5-325 mg), 1 TAB PO QID PRN Miscellaneous Medications Magnesium Oxide (Magnesium Oxide), 1 TAB PO, (Reported) Melatonin ( Melatonin), 5 MG PO, (Reported) Discontinued Medications Levofloxacin Hemihydrate (Levaquin 500 Mg), 1 TAB PO DAILY Metronidazole (Flagyl), 1 TAB PO TID Discharge Statement: "Patient was advised to return to the ER or call 911 if any headaches, dizziness, shortness of breath, chest pain, abdominal pain, bleeding, fevers, or worsening of medical condition. Patient was counseled about treatment plan, medications, possible side effects, patientverbalized understanding. All questions were answered to the best of my ability. This discharge took greater then 30 minutes in planning, reviewing documentation, counseling the patient, and discussing with other team members." ASSESSMENT ASSESSMENT Hospital Course This is a 30-year-old female who presented to the ED the complained of intense back pain. The patient mentioned that while trying to get out of bed in the morning 3 days before admission, she was unable to bear weight on her legs had intense back pain his family had to help her get out of bed. Back pain had continued since then she is unable to stand up by herself. She described the pain as a 10/10 in intensity, sharp and radiating from the middle of the spine upwards and downwards. Patient stated the pain and tenderness is more on sides than in the center of her back. She did not have any urinary or bowel incontinence. During her hospital stay, her pain reduced considerably and she was able to move and ambulate to the washroom independently. Urinalysis was positive for UTI for which urine culture was ordered and she was started on IV Rocephin. Patient's vitals were stable today. Was discharged home on oral antibiotics and muscle relaxants. All medications and recommendation were explained to the patient and she demonstrated understanding of the same. All questions were answered and all concerns were addressed. Past medical history: History of depression for which she was on escitalopram which was stopped 6 months back Past surgical history: Cholecystectomy 3 weeks back Social & Personal history: Lives at home with family Smoking: History of vaping for 3 years, stopped a couple of months back Alcohol: Occasional intake Drugs: History of recreational drug use, marijuana, cocaine Allergies: No known allergies Patient seen and examined at bedside. Patient is alert and oriented to time, place person and responding to all questions. The patient is in distress due to back pain and says she can not move. Eyes: No Pain, No Vision change, No Conjunctivae inflammation, No Eyelid inflammation, No Redness ENT: No Ear pain, No Ear discharge, No Nose pain, No Nose discharge, No Nose congestion, No Mouth pain, No Mouth swelling, No Throat pain, No Throat swelling Cardiovascular: No Chest Pain, No Palpitations, No Orthopnea, No Paroxysmal No Dyspnea, No Edema, No Lt Headedness Respiratory: No Cough, No Dry, No Shortness of breath, No SOB with exertion, No Wheezing, No Hemoptysis, No Pleuritic Pain, No Sputum Gastrointestinal: No Nausea, No Vomiting, No Abdominal Pain, No Diarrhea, No Constipation, No Melena, No Hematochezia Genitourinary: No Dysuria, No Frequency, No Incontinence, No Hematuria, No Retention General Appearance: Cooperative. Well developed. Well nourished. NAD Head Exam: Normal inspection Neck Exam: Normal inspection. Non-tender. Normal alignment Pulmonary/Respiratory: Chest non-tender. Clear bilateral breath sounds, no crackles, no wheezing. Cardiovascular/Chest: Regular rate and rhythm. No murmurs. No JVD. Peripheral Pulses: 2+ Radial (R). 2+ Radial (L). 2+ Pedal (R). 2+ Pedal (L) Abdominal Exam: Normal bowel sounds. Soft. normal abdomen, no visible veins, Nontender. No hepatospenomegaly. No masses Ankle Exam: Negative ankle edema Lower extremities: Negative lower extremity edema Neuro/Mental Status: mild Tenderness in the lumbar paraspinal area, tenderness in the spinal area, strength and tone of all 4 extremities 5 /5 , normal tone, sensation intact, A&O x4. Coherent. Thoughts/Psych: Normal thought pattern. Appropriate mood and affect. Good judgement and insight Skin Exam: Normal inspection. Normal color. Warm. Dry Assessment Severe paraspinal muscular spasm UTI History of depression without suicidal or homicidal ideation Cannabinoid use disorder Date of Service: May 02, 2025 Billing Provider: ESTHER LIN MD Common Visit Codes: 05749-[id number]/OBS DISCH DAY >30min JOHN CAMPBELL RESIDENT May 02, 2025 12:31 ESTHER LIN MD May 06, 2025 01:59
[2025-05-02] MEDS ORDERED: CEPH250C PO (12:40)
[2025-05-02] MEDS ORDERED: CYCL-611 PO (12:40)
[2025-05-02] MEDS ORDERED: BACL10TA PO (12:40)
[2025-05-02 12:51] VITALS: TEMP 36.4
[2025-05-02 14:24] VITALS: BP 100/60; PULSE 62; RESP 17; TEMP 98; O2SAT 97
== END 2025-05-02 14:20 | disposition home or self-care (01) | DRG 720 ==
LOC: ER 20:44 → OVERFLOW 04-30 02:44 → WEST WING 04-30 22:12
PROVIDERS: ADMIT Student in an Organized Health Care Education/Training Program; ATTEND Student in an Organized Health Care Education/Training Program
DX: A41.9 Sepsis, unspecified organism (principal); E83.51 Hypocalcemia; N39.0 Urinary tract infection, site not specified; M62.830 Muscle spasm of back; M51.369 Other intervertebral disc degeneration, lumbar region without mention of lumbar back pain or lower extremity pain; F17.200 Nicotine dependence, unspecified, uncomplicated; K59.00 Constipation, unspecified; F32.A Depression, unspecified; R74.01 Elevation of levels of liver transaminase levels; Z90.49 Acquired absence of other specified parts of digestive tract; Z91.148 Patient's other noncompliance with medication regimen for other reason
CPT/HCPCS: 36415; 72148; 74177; 80048; 80053; 80307; 80320; 81001; 83690; 83735; 84443; 84702; 85025; 86038; 87040; 87086; 96361; 96374; 96375; 99291; G0378; J2405